=== PATIENT | male | born 1935 | race Caucasian/White ===

== ENCOUNTER 2017-06-18 15:53 | Inpatient (IN) | payer OTHER, MEDICARE ==
[~2017-06-18] VITALS: Ht 172.7 cm; Wt 80.4 kg
[2017-06-18 15:59] VITALS: BP 128/76; PULSE 63; RESP 17; O2SAT 96
[2017-06-18 17:56] LABS: AUTOMATED NEUTROPHIL # 3.5 TH/MM3 (1.8-7.7); BASOPHIL # 0.1 TH/MM3 (0-0.2); BASOPHIL % 1.5 % (0.0-2.0); EOSINOPHIL # 0.5 TH/MM3 (0-0.4); EOSINOPHIL % 6.9 % (0.0-4.0); HEMATOCRIT 38.8 % (39.0-51.0); HEMOGLOBIN 13.2 GM/DL (13.0-17.0); LYMPH % 29.2 % (9.0-44.0); LYMPHOCYTE # 1.9 TH/MM3 (1.0-4.8); MEAN CELL VOLUME 92.4 FL (80.0-100.0); MEAN CORPUSCULAR HEMOGLOBIN 31.4 PG (27.0-34.0); MEAN PLATELET VOLUME 6.5 FL (7.0-11.0); MONO % 9.5 % (0.0-8.0); MONOCYTE # 0.6 TH/MM3 (0-0.9); NEUT % 52.9 % (16.0-70.0); PLATELET COUNT 179 TH/MM3 (150-450); RED CELL DISTRIBUTION WIDTH 14.1 % (11.6-17.2); WHITE BLOOD COUNT 6.6 TH/MM3 (4.0-11.0)
--- NOTE | 2017-06-18 17:58 | PD ---
HPI Chief Complaint: Psychiatric Symptoms Time Seen by Provider: 17:07 Travel History International Travel<30 days: No Contact w/Intl Traveler<30days: No Traveled to known affect area: No History of Present Illness HPI Patient is a 81-year-old male presenting to the emergency department under Jones act for psychiatric evaluation. Patient was sent from the skilled facility due to aggressive behavior and noncompliance of medications. Per the Jones act report patient has had aggressive and exit seeking behavior since admission on 03/30/17. He is tried climbing out of windows at risk to himself and constantly tries to go outdoors. His behavior has become more aggressive lately and today post 2 different nursing assistance in his attempt to go through the doors. Unfortunately he is refusing oral medication so attempts to settle behavior with medication have failed. Onset of symptoms is unknown, symptoms appear moderate to severe nature. Unknown exacerbating factors. [facility] Past Medical History Medical History: Unable to Obtain Dementia: Yes Social History Tobacco Use: No Allergies-Medications (Allergen,Severity, Reaction): Coded Allergies: Penicillins (Verified Allergy, Unknown, UNKNOWN , 06/18/17) Sulfa (Sulfonamide Antibiotics) (Verified Allergy, Unknown, UNKNOWN , ) codeine (Verified Allergy, Unknown, UNKNOWN, 06/18/17) Reported Meds & Prescriptions Reported Meds & Active Scripts Active Reported Depakote DR (Divalproex Sodium) 500 Mg Tabdr 500 Mg PO BID Tylenol (Acetaminophen) 325 Mg Tab 325 Mg PO Q6H PRN Duoneb (Ipratropium-Albuterol Neb) 0.5-2.5 Mg/3 Ml Neb 1 Nebule INH Q8HR NEB Vitamin C (Ascorbic Acid) 250 Mg Tab 500 Mg PO DAILY Hydralazine HCl 25 Mg Tablet 25 Mg PO BID [Abh Gel ] 1 Applic BID Ativan (Lorazepam) 1 Mg Tab 1 Mg PO BID PRN Zyrtec (Cetirizine HCl) 10 Mg Tablet 1 Tab-Cap PO DAILY Review of Systems ROS Limitations: Refused, Poor Historian Except as stated in HPI: all other systems reviewed are Neg Physical Exam Narrative GENERAL: Well-developed, well-nourished, alert elderly gentleman. Presenting in no acute distress. SKIN: Warm and dry. HEAD: Atraumatic. Normocephalic. EYES: Pupils equal and round. No scleral icterus. No injection or drainage. ENT: No nasal bleeding or discharge. Mucous membranes pink and moist. NECK: Trachea midline. No JVD. CARDIOVASCULAR: Regular rate and rhythm. RESPIRATORY: No accessory muscle use. Clear to auscultation. Breath sounds equal bilaterally. GASTROINTESTINAL: Abdomen soft, non-tender, nondistended. Hepatic and splenic margins not palpable. MUSCULOSKELETAL: Extremities without clubbing, cyanosis, or edema. No obvious deformities. NEUROLOGICAL: Awake and alert oriented to self only. No obvious cranial nerve deficits. Motor grossly within normal limits. Five out of 5 muscle strength in the arms and legs. Normal speech. PSYCHIATRIC: Appropriate mood and flat affect; insight and judgment impaired. Data Data Last Documented VS Vital Signs Date Time Temp Pulse Resp B/P (MAP) Pulse Ox O2 Delivery O2 Flow Rate FiO2 06/18/17 15:59 63 17 128/76 (93) 96 Orders Orders Complete Blood Count With Diff (06/18/17 16:09) Comprehensive Metabolic Panel (06/18/17 16:09) Thyroid Stimulating Hormone (06/18/17 16:09) Psych Screen (06/18/17 16:09) Drug Screen, Random Urine (06/18/17 16:09) Alcohol (Ethanol) (06/18/17 16:09) Urinalysis - C+S If Indicated (06/18/17 16:09) Cath For Specimen (06/18/17 16:09) ^ Sitter (06/18/17 16:12) Labs Laboratory Tests Test 06/18/17 17:41 White Blood Count 6.6 TH/MM3 Red Blood Count 4.20 MIL/MM3 Hemoglobin 13.2 GM/DL Hematocrit 38.8 % Mean Corpuscular Volume 92.4 FL Mean Corpuscular Hemoglobin 31.4 PG Mean Corpuscular Hemoglobin Concent 34.0 % Red Cell Distribution Width 14.1 % Platelet Count 179 TH/MM3 Mean Platelet Volume 6.5 FL Neutrophils (%) (Auto) 52.9 % Lymphocytes (%) (Auto) 29.2 % Monocytes (%) (Auto) 9.5 % Eosinophils (%) (Auto) 6.9 % Basophils (%) (Auto) 1.5 % Neutrophils # (Auto) 3.5 TH/MM3 Lymphocytes # (Auto) 1.9 TH/MM3 Monocytes # (Auto) 0.6 TH/MM3 Eosinophils # (Auto) 0.5 TH/MM3 Basophils # (Auto) 0.1 TH/MM3 CBC Comment DIFF FINAL Differential Comment Blood Urea Nitrogen 24 MG/DL Creatinine 1.36 MG/DL Random Glucose 88 MG/DL Total Protein 8.1 GM/DL Albumin 3.5 GM/DL Calcium Level 8.5 MG/DL Alkaline Phosphatase 60 U/L Aspartate Amino Transf (AST/SGOT) 15 U/L Alanine Aminotransferase (ALT/SGPT) 17 U/L Total Bilirubin 0.4 MG/DL Sodium Level 142 MEQ/L Potassium Level 4.5 MEQ/L Chloride Level 106 MEQ/L Carbon Dioxide Level 29.3 MEQ/L Anion Gap 7 MEQ/L Estimat Glomerular Filtration Rate 51 ML/MIN Thyroid Stimulating Hormone 3rd Gen 2.430 uIU/ML Ethyl Alcohol Level LESS THAN 3 MG/DL MDM Medical Decision Making Medical Screen Exam Complete: Yes Emergency Medical Condition: Yes Interpretation(s) Vital Signs Date Time Temp Pulse Resp B/P (MAP) Pulse Ox O2 Delivery O2 Flow Rate FiO2 06/18/17 15:59 63 17 128/76 (93 96 Differential Diagnosis Behavior disturbance versus psychosis versus metabolic abnormality versus UTI versus other Narrative Course Patient is a 81-year-old male presenting from a assisted under a Jones act for psychiatric evaluation secondary to aggressive behavior and noncompliance with medications. Patient's vital signs are stable, labs ordered and pending. Mental health screening discussed with the patient. Psychiatric screen ordered. is at bedside. Patient was transferred to [facility] because he is a flight risk. Labs reviewed, no acute findings identified. Patient is medically cleared for psychiatric evaluation. Diagnosis Primary Impression: Medical clearance for psychiatric admission Condition: Stable Jen Escobar [facility] Jun 18, 2017 17:58
[2017-06-18] MEDS ORDERED: CETI10CA3 (18:05)
[2017-06-18] MEDS ORDERED: CETI-1 PO (18:05)
[2017-06-18] MEDS ORDERED: TYLE325T PO (18:13)
[2017-06-18] MEDS ORDERED: IPRASOL INH (18:13)
[2017-06-18] MEDS ORDERED: VITA250T3 PO (18:13)
[2017-06-18] MEDS ORDERED: HYDR-3799 PO (18:13)
[2017-06-18] MEDS ORDERED: LORA-474 PO (18:13)
[2017-06-18] MEDS ORDERED: DEPA500T PO (18:13)
[2017-06-18] MEDS ORDERED: ABH GEL (18:13)
[2017-06-18 18:22] LABS: ALBUMIN 3.5 GM/DL (3.4-5.0); ALT (GPT) 17 U/L (12-78); AST (GOT) 15 U/L (15-37); BICARBONATE 29.3 MEQ/L (21.0-32.0); BLOOD UREA NITROGEN 24 MG/DL (7-18); CALCIUM 8.5 MG/DL (8.5-10.1); CHLORIDE 106 MEQ/L (98-107); CREATININE 1.36 MG/DL (0.60-1.30); GLOMERULAR FILTRATION RATE 51 ML/MIN (>89); GLUCOSE,RANDOM 88 MG/DL (74-106); SODIUM (NA) 142 MEQ/L (136-145)
[2017-06-18 18:31] LABS: ALKALINE PHOSPHATASE 60 U/L (45-117); TOTAL BILIRUBIN ADULT 0.4 MG/DL (0.2-1.0); TOTAL PROTEIN 8.1 GM/DL (6.4-8.2)
[2017-06-18 19:09] VITALS: BP 132/76; PULSE 60; RESP 16; O2SAT 100
[2017-06-19 01:03] VITALS: BP 133/60; PULSE 61; RESP 18; TEMP 97.5; O2SAT 96
[2017-06-19 06:19] VITALS: BP 149/75; PULSE 63; RESP 18; TEMP 97.2; O2SAT 96
[2017-06-19 08:52] LABS: BILIRUBIN, URINE NEG (NEG); BLOOD, URINE NEG (NEG); GLUCOSE,URINE NEG (NEG); KETONE, URINE NEG (NEG); MUCUS URINE FEW /lpf (OCC); NITRITE,URINE NEG (NEG); URINE COLOR YELLOW (YELLW/STRAW); URINE LEUKOCYTE ESTERASE NEG (NEG)
[2017-06-19] MEDS ORDERED: LORazepam 1 MG TAB PO PRN (09:15)
[2017-06-19] MEDS ORDERED: LORazepam 2 MG/ML VIAL IM PRN (09:15)
[2017-06-19] MEDS ORDERED: ACETAMINOPHEN 325 MG TAB PO PRN (10:00)
[2017-06-19] MEDS ORDERED: MAGNESIUM HYDROXIDE SUSP 30 ML CUP PO PRN (10:00)
[2017-06-19] MEDS: NICOTINE 21 MG/24 HR PATCH T-DERMAL SCH (10:00)
[2017-06-19] MEDS ORDERED: ALUMINUM/MAGNESIUM/SIMETH 30 ML CUP PO PRN (10:00)
[2017-06-19 11:55] VITALS: BP 122/66; PULSE 60; RESP 16; TEMP 97.3; O2SAT 96
[2017-06-19 18:20] VITALS: BP 126/60; PULSE 56; RESP 18; TEMP 97.3; O2SAT 95
[2017-06-20 04:49] VITALS: BP 142/81; PULSE 60; RESP 17; TEMP 97.6; O2SAT 96
[2017-06-20] MEDS ORDERED: LORazepam 2 MG/ML VIAL ONE (08:17)
[2017-06-20] MEDS: NICOTINE 21 MG/24 HR PATCH T-DERMAL SCH (09:00)
[2017-06-20] MEDS: LORazepam 2 MG/ML VIAL IM PRN (09:11)
[2017-06-20] MEDS: hydrALAZINE HCL 25 MG TAB PO SCH ×2 (11:45→21:00)
[2017-06-20] MEDS: DIVALPROEX DR 500 MG TABEC PO SCH ×2 (11:45→21:00)
[2017-06-20] MEDS: ASCORBIC ACID 500 MG TAB PO SCH (12:15)
--- NOTE | 2017-06-20 13:39 | PD.CONS ---
[facility] By Primary Care Physician Unknown Diagnoses: History of Present Illness History from patient, and review of medical records, and psychiatry nurse. Patient is known to me from his prior hospitalization on February 22, 2017. At that time, I did have an extensive conversation with patient and his and confirmed his medical history. Since then, patient has been admitted one more time to psychiatry on March. He has been residing at a nursing facility. Today he was sent from the nursing facility because of severe agitation and also obtain staff members there. Patient has advanced dementia with agitation and he did present initially back in early February 09, 2017 as silver alert when he was finally found at [facility]. He kept going to airport and is thinking that he can run away to [place] and be with his family At the time of my exam, patient denies any symptoms. He however is also much more preoccupied with the thought of trying to get into the dictation room in 2500s. He is quite pleasant but it does not seem to be listening to my line of questioning. . Review of Systems ROS Limitations: Poor Historian Except as stated in HPI: all other systems reviewed are Neg Past Family Social History Allergies: Coded Allergies: Penicillins (Verified Allergy, Unknown, UNKNOWN , 06/18/17) Sulfa (Sulfonamide Antibiotics) (Verified Allergy, Unknown, UNKNOWN , ) codeine (Verified Allergy, Unknown, UNKNOWN, 06/18/17) Past Medical History cad- s/p stent - 3.5yrs ago kidney cyst BPH Alzeimers dx - diagnosed 2 yrs ago and had episodes of leaving home skin cancer - sq cell Past Surgical History skin cancer removal cardiac stents Family History brother- late 80s from metatstatic cancer Social History social drinker while young quit smoking 40yrs ago no drugs Physical Exam Vital Signs Vital Signs Date Time Temp Pulse Resp B/P (MAP) Pulse Ox O2 Delivery O2 Flow Rate FiO2 06/20/17 04:49 97.6 60 17 142/81 (101) 96 06/19/17 18:20 97.3 56 18 126/60 (82) 95 Physical Exam GENERAL: This is a well-nourished, well-developed patient, in no apparent distress. SKIN: No rashes, ecchymoses or lesions. Cool and dry. HEAD: Atraumatic. Normocephalic. No temporal or scalp tenderness. EYES:No scleral icterus. No injection or drainage. ENT: Nose without bleeding, purulent drainage or septal hematomaAirway patent. NECK: Trachea midline. No JVD CARDIOVASCULAR: Regular rate and rhythm without murmurs, gallops, or rubs. RESPIRATORY: Clear to auscultation. Breath sounds equal bilaterally. No wheezes , rales, or rhonchi. GASTROINTESTINAL: Abdomen soft, non-tender, nondistended.s. No guarding. MUSCULOSKELETAL: Extremities without clubbing, cyanosis, or edema. . No calf tenderness NEUROLOGICAL: Awake and alert.. Motor and sensory grossly within normal limits. Normal speech. Ambulating in psychiatry unit hallways. Result Diagram: 06/18/[id number]/[id number]/[id number] Assessment and Plan Assessment and Plan Impression: Dementia with agitation. Management per psychiatry. cad- s/p stent - 3.5yrs ago kidney cyst BPH Alzeimers dx - diagnosed 2 yrs ago and had episodes of leaving home skin cancer - sq cell Plan: Patient is admitted under inpatient psychiatry unit. Management per psychiatry team for his dementia with agitation and wandering. As to his medical issues, his prior history and medical records have been reviewed. His home medications have been resumed by the primary team. This was also reviewed. There is no other acute issues going on. Patient is however somewhat of a poor historian. If he does have any medical complaints, please reconsult. At this point, I will sign off on the case. DVT prophylaxis with ambulation. Discussed Condition With patient, nursing staff Garrett Rosen MD Jun 20, 2017 13:39
--- NOTE | 2017-06-20 14:10 | PD.PSY.CON ---
Provisional Diagnosis Admission Date Jun 19, 2017 at 09:05 [place]. Dementia History of Present Illness Service Psychiatry Consult Requested By Psychiatry Reason for Consult Second Primary Care Physician Unknown HPI Patient is a 81 y/o [place] man, , domiciled in an assisted living facility, with past psychiatric history of dementia, one prior psychiatric admission, no prior suicide attempts or self injurious behavior, past medical history of CAD and NV who was brought in under Jones Act due to aggressive behavior with others at the facility with reports that patient tried climbing out of windows at risk to himself and constantly tries to go outdoors in the context of refusing medications which patient was admitted to the inpatient psychiatry unit for further evaluation and management. Patient was found attempting to exit the unit, requiring ETO and moved to higher acuity unit due to behavioral dyscontrol. Patient found to be alert and oriented to person only , noted to be exit seeking and requiring redirection. On my evaluation the patient is oppositional, Refused to talk. Review of Systems Except as stated in HPI: all other systems reviewed are Neg Past Family Social History Coded Allergies: Penicillins (Verified Allergy, Unknown, UNKNOWN , 06/18/17) Sulfa (Sulfonamide Antibiotics) (Verified Allergy, Unknown, UNKNOWN , ) codeine (Verified Allergy, Unknown, UNKNOWN, 06/18/17) Reported Medications Divalproex DR (Depakote ) 500 Mg Tabdr, 500 MG PO BID for Control Seizures, # 60 TAB 0 Refills 06/18/17 Acetaminophen (Tylenol) 325 Mg Tab, 325 MG PO Q6H Y for PAIN 1 TO 10 AND/OR AGITATION, TAB 0 Refills 06/18/17 Ipratropium-Albuterol Neb (Duoneb) 0.5-2.5 Mg/3 Ml Neb, 1 NEBULE INH Q8HR NEB for Breathing Treatment, #90 NEBULE 0 Refills 06/18/17 Ascorbic Acid (Vitamin C) 250 Mg Tab, 500 MG PO DAILY for Nutritional Supplement , TAB 0 Refills 06/18/17 Hydralazine HCl (Hydralazine HCl) 25 Mg Tablet, 25 MG PO BID for Blood Pressure Management, #60 TAB 0 Refills 06/18/17 [Abh Gel ] No Conflict Check, 1 APPLIC BID 06/18/17 Lorazepam (Ativan) 1 Mg Tab, 1 MG PO BID Y for ANXIETY AND/OR AGITATION, TAB 0 Refills 06/18/17 Cetirizine HCl (Zyrtec) 10 Mg Tablet, 1 TAB-CAP PO DAILY 06/18/17 Discontinued Reported Medications Cetirizine HCl (Zyrtec) 10 Mg Capsule 06/18/17 Current Medications Medications (Trade) Dose Ordered Sig/Dipak Route Start Time Stop Time Status Last Admin (Ativan) 0.5 mg Q12H PRN PO 06/19/17 10:00 Future Hold (Ativan Inj) 0.5 mg Q12H PRN IM 06/19/17 10:00 Future Hold 06/20/17 09:11 (Tylenol) 650 mg Q4H PRN PO 06/19/17 10:00 (Milk Of Magnesia Liq) 30 ml DAILY PRN PO 06/19/17 10:00 (Mag-Al Plus Susp Liq) 30 ml Q6H PRN PO 06/19/17 10:00 (Habitrol 21 Mg Patch.24 Hr) 1 patch DAILY T-DERMAL 06/19/17 10:00 Miscellaneous Information 1 DAILY T-DERMAL 06/20/17 10:00 (ZyrTEC) 10 mg DAILY PO 06/21/17 09:00 (Depakote Dr) 500 mg BID PO 06/20/17 11:45 06/20/17 11:45 (Apresoline) 25 mg BID PO 06/20/17 11:45 06/20/17 11:45 (Vitamin C) 500 mg DAILY PO 06/20/17 12:15 06/20/17 12:15 Physical Exam Vital Signs Vital Signs Date Time Temp Pulse Resp B/P (MAP) Pulse Ox O2 Delivery O2 Flow Rate FiO2 06/20/17 04:49 97.6 60 17 142/81 (101) 96 06/19/17 06:19 Room Air I/O 06/20/17 06/20/17 06/21/17 08:00 16:00 00:00 Intake Total 120 ml 240 ml Balance 120 ml 240 ml Assessment & Plan Problem List: (1) Alzheimer's dementia with behavioral disturbance ICD Codes: G30.9 - Alzheimer's disease, unspecified; F02.81 - Dementia in other diseases classified elsewhere with behavioral disturbance Assessment & Plan: I have seen and examined this patient, review documentation , discussed with Dr. Jim, I agree and concur with his plan Assessment & Plan Estimated LOS: Neftali Crain MD Jun 20, 2017 14:10
[2017-06-20] MEDS ORDERED: HALOPERIDOL LACTATE 5 MG/ML AMP ONE (14:21)
[2017-06-20] MEDS ORDERED: diphenhydrAMINE HCL 50 MG/ML VIAL ONE (14:21)
[2017-06-20] MEDS ORDERED: diphenhydrAMINE HCL 50 MG/ML VIAL IM ONE (15:00)
[2017-06-20] MEDS ORDERED: HALOPERIDOL LACTATE 5 MG/ML AMP IM ONE (15:00)
[2017-06-20 18:22] VITALS: BP 122/60; PULSE 62; RESP 18; TEMP 97.3; O2SAT 97
[2017-06-21 06:08] VITALS: BP 117/62; PULSE 69; RESP 18; TEMP 96.6; O2SAT 95
[2017-06-21] MEDS: REMOVE OLD PATCH T-DERMAL SCH (09:00)
[2017-06-21] MEDS: NICOTINE 21 MG/24 HR PATCH T-DERMAL SCH (09:00)
[2017-06-21] MEDS: CETIRIZINE HCL 10 MG TAB PO SCH (09:58)
[2017-06-21] MEDS: hydrALAZINE HCL 25 MG TAB PO SCH ×2 (09:58→20:27)
[2017-06-21] MEDS: DIVALPROEX DR 500 MG TABEC PO SCH ×2 (09:58→20:27)
[2017-06-21] MEDS: ASCORBIC ACID 500 MG TAB PO SCH (09:58)
--- NOTE | 2017-06-21 16:43 | HHI.HP ---
Provisional Diagnosis Admission Date Jun 19, 2017 at 09:05 [place]. Dementia with behavioral disturbances Certification of Person's Competence To Provide Express and Informed Consent I have personally examined Yajaira Barnes , a person being served at [facility] on, Jun 21, 2017 16:42. Express and informed consent means consent voluntarily given in writing, by a competent person, after sufficient explanation and disclosure of the subject matter involved to enable the person to make a knowing and willful decision without any element of force, fraud, deceit, duress, or other form of constraint or coercion. This person is 18 years of age or older, is not now known to be incompetent to consent to treatment with a guardian advocate, and does not have a health care surrogate or proxy currently making medical treatment decisions. I have found this person to be one of the following: [] Competent to provide express and informed consent, as defined above, for voluntary admission to this facility and is competent to provide express and informed consent for treatment. He/she has the consistent capacity to make well reasoned, willful, and knowing decisions concerning his or her medical or mental health treatment. The person fully and consistently understands the purpose of the admission for examination/placement and is fully capable of personally exercising all rights assured under [place]xxx] Incompetent to provide express and informed consent to voluntary admission , and this is incompetent to provide express and informed consent to treatment. The person must be transferred to involuntary status and a petition for a guardian advocate filed with the Circuit Court. [] Refusing to provide express and informed consent to voluntary admission but is competent to provide express and informed consent for treatment. The person must be discharged or transferred to involuntary status. Form shall be completed within 24 hours of a person's arrival at the receiving facility and filed in the clinical record of each person: 1. Admitted on a voluntary basis 2. Permitted to provide express and informed consent to his/her own treatment 3. Allowed to transfer from involuntary to voluntary status 4. Prior to permitting a person to consent to his or her own treatment after having been previously found incompetent to consent to treatment. History of Present Illness Capacity: Lacks Capacity HPI LATE ENTRY FOR 06/20/17 Patient is a 81 y/o [place] man, , domiciled in an assisted living facility, with past psychiatric history of dementia, one prior psychiatric admission, no prior suicide attempts or self injurious behavior, past medical history of CAD and AL who was brought in under Jones Act due to aggressive behavior with others at the facility with reports that patient tried climbing out of windows at risk to himself and constantly tries to go outdoors in the context of refusing medications which patient was admitted to the inpatient psychiatry unit for further evaluation and management. Patient was found attempting to exit the unit, requiring ETO and moved to higher acuity unit due to behavioral dyscontrol. Patient found to be alert and oriented to person only , noted to be exit seeking and requiring redirection. Family history: denies Past psychiatric history: dementia, prior admission (last in [place]), no prior SA Substance use history: denies Past medical history: CAD, AL Allergies: sulfas, codeine, penicillin G Social history: , domiciled in assisted living facility, unemployed on SSI Review of Systems Except as stated in HPI: all other systems reviewed are Neg Past Psych History Violence risk - others (6 mos) elevated due to aggressive behavior Violence risk - self (6 mos) low Substance Abuse History Drugs/Alcohol past 12 months denies Past Family Social History Coded Allergies: Penicillins (Verified Allergy, Unknown, UNKNOWN , 06/18/17) Sulfa (Sulfonamide Antibiotics) (Verified Allergy, Unknown, UNKNOWN , ) codeine (Verified Allergy, Unknown, UNKNOWN, 06/18/17) Reported Medications Divalproex (Depakote ) 500 Mg Tabdr, 500 MG PO BID for Control Seizures, # 60 TAB 0 Refills 06/18/17 Acetaminophen (Tylenol) 325 Mg Tab, 325 MG PO Q6H Y for PAIN 1 TO 10 AND/OR AGITATION, TAB 0 Refills 06/18/17 Ipratropium-Albuterol Neb (Duoneb) 0.5-2.5 Mg/3 Ml Neb, 1 NEBULE INH Q8HR NEB for Breathing Treatment, #90 NEBULE 0 Refills 06/18/17 Ascorbic Acid (Vitamin C) 250 Mg Tab, 500 MG PO DAILY for Nutritional Supplement , TAB 0 Refills 06/18/17 Hydralazine HCl (Hydralazine HCl) 25 Mg Tablet, 25 MG PO BID for Blood Pressure Management, #60 TAB 0 Refills 06/18/17 [Abh Gel ] No Conflict Check, 1 APPLIC BID 06/18/17 Lorazepam (Ativan) 1 Mg Tab, 1 MG PO BID Y for ANXIETY AND/OR AGITATION, TAB 0 Refills 06/18/17 Cetirizine HCl (Zyrtec) 10 Mg Tablet, 1 TAB-CAP PO DAILY 06/18/17 Discontinued Reported Medications Cetirizine HCl (Zyrtec) 10 Mg Capsule 06/18/17 Current Medications Medications (Trade) Dose Ordered Sig/Dipak Route Start Time Stop Time Status Last Admin (Ativan) 0.5 mg Q12H PRN PO 06/19/17 10:00 Future hold (Ativan Inj) 0.5 mg Q12H PRN IM 06/19/17 10:00 Future hold 06/20/17 09:11 (Tylenol) 650 mg Q4H PRN PO 06/19/17 10:00 (Milk Of Magnesia Liq) 30 ml DAILY PRN PO 06/19/17 10:00 (Mag-Al Plus Susp Liq) 30 ml Q6H PRN PO 06/19/17 10:00 (Habitrol 21 Mg Patch.24 Hr) 1 patch DAILY T-DERMAL 06/19/17 10:00 Miscellaneous Information 1 DAILY T-DERMAL 06/20/17 10:00 (ZyrTEC) 10 mg DAILY PO 06/21/17 09:00 06/21/17 09:58 (Depakote Dr) 500 mg BID PO 06/20/17 11:45 06/21/17 09:58 (Apresoline) 25 mg BID PO 06/20/17 11:45 06/21/17 09:58 (Vitamin C) 500 mg DAILY PO 06/20/17 12:15 06/21/17 09:58 Social History , domiciled in assisted living facility, unemployed on SSI Patient's Strengths (min. 2) verbal and communicative Physical Exam Patient found to be in no acute distress, no noted gross motor abnormalities, no tremors of EPS, no noted psychomotor agitation of retardation. Vital Signs Vital Signs Date Time Temp Pulse Resp B/P (MAP) Pulse Ox O2 Delivery O2 Flow Rate FiO2 06/21/17 06:08 96.6 69 18 117/62 (80) 95 06/19/17 06:19 Room Air Mental Status Examination Appearance: Disheveled Consciousness: Alert Orientation: Person Motor Activity: Normal gait Speech: Unremarkable Language: Adequate Fund of Knowledge: Inadequate Attention and Concentration: Easily Distracted Memory: Impaired Mood: Irritable Affect: Irritable Thought Process & Associations: Goal directed, Other (concrete) Thought Content: Preoccupations (with exiting the unit) Hallucination Type: None Delusion Type: None Suicidal Ideation: No Suicidal Plan: No Suicidal Intention: No Homicidal Ideation: No Homicidal Plan: No Homicidal Intention: No Insight: Poor Judgment: Poor Assessment & Plan Problem List: (1) Alzheimer's dementia with behavioral disturbance ICD Codes: G30.9 - Alzheimer's disease, unspecified; F02.81 - Dementia in other diseases classified elsewhere with behavioral disturbance Assessment & Plan Estimated LOS: 5-7 days. Patient is a 81 y/o [place] man who carries a diagnosis of dementia, prior psychiatric admission, no prior SA who was brought in under BA due to aggressive behavior at the facility as well as attempting to exit the facility in the context of non-adherence to treatment which patient was admitted for further evaluation and management. Patient to resume Depakote 500mg PO BID for mood stabilization, continue to monitor mood and behavior. Social work intervention for psychosocial assessment. Discharge planning in progress. Discharge Planning To be determined Jaya Jim MD Jun 21, 2017 16:43
--- NOTE | 2017-06-21 16:47 | HHI.PYPN ---
Subjective Remarks Patient seen for follow up; chart reviewed. Discussion with nursing staff reported that the patient had to be moved to a higher acuity unit as patient was disruptive and attempting to exit the unit. Patient was found near the exit door, noted to be confused, perseverative on having someone open the door to leave. He is redirectible for interview and states feeling "good", denies any physical complaints, denies SI, HI, AVH or delusions. Review of Systems Except as stated in HPI: all other systems reviewed are Neg Mental Status Examination Appearance: Disheveled Consciousness: Alert Orientation: Person Motor Activity: Normal gait Speech: Unremarkable Language: Adequate Fund of Knowledge: Inadequate Attention and Concentration: Inadequate Memory: Impaired Mood: Irritable Affect: Irritable Thought Process & Associations: Other (concrete) Thought Content: Preoccupations (perseverative on discharge) Hallucination Type: None Delusion Type: None Suicidal Ideation: No Suicidal Plan: No Suicidal Intention: No Homicidal Ideation: No Homicidal Plan: No Homicidal Intention: No Insight: Poor Judgment: Poor Results Vitals/IOs Vital Signs Date Time Temp Pulse Resp B/P (MAP) Pulse Ox O2 Delivery O2 Flow Rate FiO2 06/21/17 06:08 96.6 69 18 117/62 (80) 95 06/19/17 06:19 Room Air Assessment & Plan Problem List: (1) Alzheimer's dementia with behavioral disturbance ICD Codes: G30.9 - Alzheimer's disease, unspecified; F02.81 - Dementia in other diseases classified elsewhere with behavioral disturbance Assessment & Plan Patient at this time continues with confusion, continues to exit seek requiring redirection. Continue current treatment, continue to monitor mood and behavior. Discharge planning in progress. Justification for Cont. Inpt. At risk for further decompensation at lower level of care. Jaya Jim MD Jun 21, 2017 16:47
[2017-06-21 17:57] VITALS: BP 94/30; PULSE 66; RESP 18; TEMP 97.2; O2SAT 98
[2017-06-22 06:16] VITALS: BP 100/64; PULSE 69; RESP 16; TEMP 97; O2SAT 89
[2017-06-22] MEDS: DIVALPROEX DR 500 MG TABEC PO SCH ×3 (08:49→20:28)
[2017-06-22] MEDS: NICOTINE 21 MG/24 HR PATCH T-DERMAL SCH (08:50)
[2017-06-22] MEDS: hydrALAZINE HCL 25 MG TAB PO SCH ×3 (08:50→20:28)
[2017-06-22] MEDS: CETIRIZINE HCL 10 MG TAB PO SCH ×2 (08:50→09:00)
[2017-06-22] MEDS: ASCORBIC ACID 500 MG TAB PO SCH ×2 (08:50→09:00)
[2017-06-22] MEDS: REMOVE OLD PATCH T-DERMAL SCH (09:00)
[2017-06-22 09:11] LABS: BICARBONATE 27.9 MEQ/L (21.0-32.0); BLOOD UREA NITROGEN 26 MG/DL (7-18); CALCIUM 9.2 MG/DL (8.5-10.1); CHLORIDE 105 MEQ/L (98-107); CHOLESTEROL 137 MG/DL (120-200); CREATININE 1.36 MG/DL (0.60-1.30); GLOMERULAR FILTRATION RATE 51 ML/MIN (>89); GLUCOSE,RANDOM 90 MG/DL (74-106); SODIUM (NA) 139 MEQ/L (136-145)
[2017-06-22 09:14] LABS: CHOLESTEROL/ HDL RATIO 3.58 RATIO; HDL CHOLESTEROL 38.2 MG/DL (40.0-60.0); LDL CHOLESTEROL 77 MG/DL (0-99); TRIGLYCERIDES 109 MG/DL (42-150)
--- NOTE | 2017-06-22 11:53 | HHI.PYPN ---
Subjective Remarks Patient seen for follow, chart reviewed. Discussion nursing staff reported the patient refusing medications this morning. Patient was found eating lunch noted , cooperative continued to be alert and oriented only to person, states feeling "alright" denies any perceptional disturbances, continues to be focused on exiting the unit asking if senior mortgage underwriter had keys to open the door so he can leave. Patient was encouraged to comply her medications which she agreed and when the nurse attempted to provide him his medications shortly after patient continued to refuse. Patient has not required any further ETO due to aggressive behavior since yesterday. Review of Systems Except as stated in HPI: all other systems reviewed are Neg Mental Status Examination Appearance: Disheveled, Other (There to have long finger nails) Consciousness: Alert Orientation: Person Motor Activity: Normal gait Speech: Unremarkable Language: Adequate Fund of Knowledge: Inadequate Attention and Concentration: Easily Distracted Memory: Impaired Mood: Irritable (Less so today) Affect: Other (Restricted) Thought Process & Associations: Goal directed, Other (concrete) Thought Content: Preoccupations (with exiting the unit) Hallucination Type: None Delusion Type: None Suicidal Ideation: No Suicidal Plan: No Suicidal Intention: No Homicidal Ideation: No Homicidal Plan: No Homicidal Intention: No Insight: Poor Judgment: Poor Results Labs Labs reviewed Test 06/22/17 08:01 Blood Urea Nitrogen 26 MG/DL Creatinine 1.36 MG/DL Random Glucose 90 MG/DL Calcium Level 9.2 MG/DL Sodium Level 139 MEQ/L Potassium Level 4.1 MEQ/L Chloride Level 105 MEQ/L Carbon Dioxide Level 27.9 MEQ/L Anion Gap 6 MEQ/L Estimat Glomerular Filtration Rate 51 ML/MIN Triglycerides Level 109 MG/DL Cholesterol Level 137 MG/DL LDL Cholesterol 77 MG/DL HDL Cholesterol 38.2 MG/DL Cholesterol/HDL Ratio 3.58 RATIO Vitals/IOs Vital Signs Date Time Temp Pulse Resp B/P (MAP) Pulse Ox O2 Delivery O2 Flow Rate FiO2 06/22/17 06:16 97.0 69 16 100/64 (76) 89 06/19/17 06:19 Room Air Assessment & Plan Problem List: (1) Alzheimer's dementia with behavioral disturbance ICD Codes: G30.9 - Alzheimer's disease, unspecified; F02.81 - Dementia in other diseases classified elsewhere with behavioral disturbance Assessment & Plan Patient continues with confusion secondary to neurocognitive deficits. Patient continues to be exit seeking although has not required any ETO or had any behavioral disturbances since yesterday. Upon labs patient continues to have elevated creatinine, we will continue to follow. Continue to encourage patient to comply with medications. Continue to monitor mood and behavior. Discharge planning in progress. Justification for Cont. Inpt. At risk of further decompensation at lower level of care. Discharge Planning To be determined. Jaya Jim MD Jun 22, 2017 11:53
[2017-06-22 16:30] LABS: HEMOGLOBIN A1C 4.8 % (4.3-6.0)
[2017-06-22 18:11] VITALS: BP 107/57; PULSE 71; RESP 17; TEMP 97.6
[2017-06-22 20:00] VITALS: BP 99/56; PULSE 68
[2017-06-23 05:44] VITALS: BP 142/78; PULSE 66; RESP 15; TEMP 97.6; O2SAT 94
[2017-06-23] MEDS: DIVALPROEX DR 500 MG TABEC PO SCH ×4 (08:30→19:57)
[2017-06-23] MEDS: NICOTINE 21 MG/24 HR PATCH T-DERMAL SCH (08:31)
[2017-06-23] MEDS: CETIRIZINE HCL 10 MG TAB PO SCH ×2 (08:31→09:00)
[2017-06-23] MEDS: hydrALAZINE HCL 25 MG TAB PO SCH ×4 (08:31→21:00)
[2017-06-23] MEDS: REMOVE OLD PATCH T-DERMAL SCH (08:31)
[2017-06-23] MEDS: LORazepam 0.5 MG TAB PO PRN ×3 (08:31→19:50)
[2017-06-23] MEDS: ASCORBIC ACID 500 MG TAB PO SCH ×2 (08:31→09:00)
[2017-06-23] MEDS: LORazepam 2 MG/ML VIAL IM PRN (09:02)
--- NOTE | 2017-06-23 15:31 | HHI.PYPN ---
Subjective Remarks Patient was seen and case discussed with nursing. Patient is alert and oriented 1. Continues to refuse his medications and refused to juice they were put in. He received an ETO of 0.5 mg of Ativan this morning. His grossly confused and remains perseverant on discharge. He is behaving well on the unit and has not had any aggressive episodes Mental Status Examination Appearance: Disheveled, Other (There to have long finger nails) Consciousness: Alert Orientation: Person Motor Activity: Normal gait Speech: Unremarkable Language: Adequate Fund of Knowledge: Inadequate Attention and Concentration: Easily Distracted Memory: Impaired Mood: Irritable (Less so today) Affect: Other (Restricted) Thought Process & Associations: Goal directed, Other (concrete) Thought Content: Preoccupations (with exiting the unit) Hallucination Type: None Delusion Type: None Suicidal Ideation: No Suicidal Plan: No Suicidal Intention: No Homicidal Ideation: No Homicidal Plan: No Homicidal Intention: No Insight: Poor Judgment: Poor Results Vitals/IOs Vital Signs Date Time Temp Pulse Resp B/P (MAP) Pulse Ox O2 Delivery O2 Flow Rate FiO2 06/23/17 05:44 97.6 66 15 142/78 (99) 94 Intake and Output 06/23/17 06/23/17 06/24/17 08:00 16:00 00:00 Intake Total 120 ml 240 ml Balance 120 ml 240 ml Assessment & Plan Problem List: (1) Alzheimer's dementia with behavioral disturbance ICD Codes: G30.9 - Alzheimer's disease, unspecified; F02.81 - Dementia in other diseases classified elsewhere with behavioral disturbance Assessment & Plan Continue current treatment plan Justification for Cont. Inpt. Patient would decompensate in a less restrictive setting Kenyon Rivera DO Jun 23, 2017 15:31
[2017-06-23 17:31] VITALS: BP 137/68; PULSE 65; RESP 17; TEMP 97.5; O2SAT 97
[2017-06-24 05:45] VITALS: BP 143/81; PULSE 65; RESP 16; TEMP 97.6; O2SAT 97
[2017-06-24] MEDS: DIVALPROEX DR 500 MG TABEC PO SCH ×2 (09:00→20:46)
[2017-06-24] MEDS: NICOTINE 21 MG/24 HR PATCH T-DERMAL SCH (09:00)
[2017-06-24] MEDS: CETIRIZINE HCL 10 MG TAB PO SCH (09:00)
[2017-06-24] MEDS: hydrALAZINE HCL 25 MG TAB PO SCH ×3 (09:00→21:00)
[2017-06-24] MEDS: ASCORBIC ACID 500 MG TAB PO SCH (09:00)
[2017-06-24] MEDS: REMOVE OLD PATCH T-DERMAL SCH (09:00)
[2017-06-24] MEDS: LORazepam 0.5 MG TAB PO PRN ×2 (11:50→20:46)
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
[2017-06-24 17:18] VITALS: BP 113/59; PULSE 66; RESP 18; TEMP 97.7; O2SAT 98
[2017-06-25 06:15] VITALS: BP 130/71; PULSE 63; RESP 14; O2SAT 94
[2017-06-25] MEDS: NICOTINE 21 MG/24 HR PATCH T-DERMAL SCH (08:47)
[2017-06-25] MEDS: REMOVE OLD PATCH T-DERMAL SCH (08:47)
[2017-06-25] MEDS: DIVALPROEX DR 500 MG TABEC PO SCH (09:00)
[2017-06-25] MEDS: LORazepam 2 MG/ML VIAL IM PRN (09:00)
[2017-06-25] MEDS: ASCORBIC ACID 500 MG TAB PO SCH (09:00)
[2017-06-25] MEDS: hydrALAZINE HCL 25 MG TAB PO SCH ×2 (09:00→21:00)
[2017-06-25] MEDS: CETIRIZINE HCL 10 MG TAB PO SCH (09:00)
[2017-06-25] MEDS: VALPROIC ACID SYRUP 250 MG/5 ML UDC PO SCH ×2 (12:15→21:00)
[2017-06-25] MEDS ORDERED: diphenhydrAMINE HCL 50 MG/ML VIAL IM ONE (13:45)
[2017-06-25] MEDS ORDERED: HALOPERIDOL LACTATE 5 MG/ML AMP IM ONE (13:45)
[2017-06-25 17:21] VITALS: BP 144/69; PULSE 61; RESP 16; TEMP 97.6; O2SAT 96
--- NOTE | 2017-06-25 17:24 | HHI.PYPN ---
Subjective Remarks Patient seen for follow, chart reviewed. Discussion nursing staff reported the patient continues to be exit seeking and required Ativan this morning the patient was threatening to push the door open which patient required redirection. Patient was found heavily on the hallway noted be alert and oriented only to person and somewhat perseverative on asking if ad copy writer had keys to open the door to leave. Patient also worried about his belongings (belt, watch, shoelaces). Patient reports his mood as being "good" denies any physical complaints at this time. Patient later during the day and required ETO due to becoming more irritable and aggressive with staff and attend to be redirected from trying to exit the unit. Review of Systems Except as stated in HPI: all other systems reviewed are Neg Mental Status Examination Appearance: Appropriate, Other (long finger nails) Consciousness: Alert Orientation: Person Motor Activity: Normal gait Speech: Unremarkable Language: Adequate Fund of Knowledge: Inadequate Attention and Concentration: Easily Distracted Memory: Impaired Mood: Appropriate Affect: Other (Restricted) Thought Process & Associations: Disorganized, Other (concrete) Thought Content: Preoccupations (with exiting the unit) Hallucination Type: None Delusion Type: None Suicidal Ideation: No Suicidal Plan: No Suicidal Intention: No Homicidal Ideation: No Homicidal Plan: No Homicidal Intention: No Insight: Poor Judgment: Poor Results Vitals/IOs Vital Signs Date Time Temp Pulse Resp B/P (MAP) Pulse Ox O2 Delivery O2 Flow Rate FiO2 06/25/17 06:15 63 14 130/71 (90) 94 18 17:18 97.7 Intake and Output 06/25/17 06/25/17 06/26/17 08:00 16:00 00:00 Intake Total 240 ml 960 ml 240 ml Balance 240 ml 960 ml 240 ml Assessment & Plan Problem List: (1) Alzheimer's dementia with behavioral disturbance ICD Codes: G30.9 - Alzheimer's disease, unspecified; F02.81 - Dementia in other diseases classified elsewhere with behavioral disturbance Assessment & Plan Patient at this time continues to be inconsistent with medications requiring much encouragement to take them. We will switch Depakote to Depakene liquid at 500 mg p.o. daily to improved compliance. Patient may require restudy of antipsychotic which patient in the past has been on Seroquel but will defer until patient has had adequate compliance with Depakote to see if there is improvement with just one agent. Continue to monitor mood and behavior. Discharge planning in progress. Justification for Cont. Inpt. At risk for further decompensation if at lower level of care Jaya Jim MD Jun 25, 2017 17:24
[2017-06-26 05:45] VITALS: BP 123/64; PULSE 57; TEMP 97.6; O2SAT 94
[2017-06-26] MEDS: VALPROIC ACID SYRUP 250 MG/5 ML UDC PO SCH ×2 (09:00→21:00)
[2017-06-26] MEDS: ASCORBIC ACID 500 MG TAB PO SCH (09:00)
[2017-06-26] MEDS: hydrALAZINE HCL 25 MG TAB PO SCH ×2 (09:00→19:57)
[2017-06-26] MEDS: NICOTINE 21 MG/24 HR PATCH T-DERMAL SCH (09:00)
[2017-06-26] MEDS: REMOVE OLD PATCH T-DERMAL SCH (09:00)
[2017-06-26] MEDS: CETIRIZINE HCL 10 MG TAB PO SCH (09:00)
--- NOTE | 2017-06-26 11:36 | HHI.PYPN ---
Subjective Remarks Patient seen for follow, chart reviewed. Discussion nursing staff reported patient refuse medications last evening noted to be wandering hallways without require any ETO's. Patient was found asleep was able to wake up for interview. Patient states that he is feeling "okay" borderline importance of adhering to medications which she nodded yes. Patient denies any physical complaints at this time. Review of Systems Except as stated in HPI: all other systems reviewed are Neg Mental Status Examination Appearance: Appropriate, Other (long finger nails) Consciousness: Alert Orientation: Person Motor Activity: Normal gait Speech: Unremarkable Language: Adequate Fund of Knowledge: Inadequate Attention and Concentration: Easily Distracted Memory: Impaired Mood: Appropriate Affect: Other (Restricted) Thought Process & Associations: Disorganized, Other (concrete) Thought Content: Preoccupations (with exiting the unit) Hallucination Type: None Delusion Type: None Suicidal Ideation: No Suicidal Plan: No Suicidal Intention: No Homicidal Ideation: No Homicidal Plan: No Homicidal Intention: No Insight: Poor Judgment: Poor Results Vitals/IOs Vital Signs Date Time Temp Pulse Resp B/P (MAP) Pulse Ox O2 Delivery O2 Flow Rate FiO2 06/26/17 05:45 97.6 57 123/64 (83) 94 06/25/17 17:21 16 Assessment & Plan Problem List: (1) Alzheimer's dementia with behavioral disturbance ICD Codes: G30.9 - Alzheimer's disease, unspecified; F02.81 - Dementia in other diseases classified elsewhere with behavioral disturbance Assessment & Plan Patient this time continues to be consistent with medications requiring much encouragement. Patient has not required ETO but redirectable. Continue to encourage patient to comply with medications, continue monitor mood and behavior. Discharge planning in progress. Justification for Cont. Inpt. At risk for further decompensation if at lower level of care Jaya Jim MD Jun 26, 2017 11:36
--- NOTE | 2017-06-26 13:06 | PD.TTN ---
Patient Problems 1. Discharge planning 2. Medication compliance 3. Knowledge deficit 4. Lack of coping skills Progress Toward Goals Provider Present: Dr. Jorge Jim Provider Input: 06/25/17 patient is very combative and in need for locked unit in a [facility], medications are adjusted and he has been in need for a lot of re-direction and ETO Psychiatric Counselors Present: Marely Kim LCSW Psych Therapist Input: 06/25/17 is working with [facility] and in hope for any placement, will fax referrals today for LTC care home and to [facility] that may be able to handle him, he remains demanding and trying to get out the door any chance he gets, he wants to return to work Group Spec/RT/OT/PUENTE Present: PEGGY Waggoner Group Spec/RT/OT/PUENTE Input: 06/25/17 pt is unable to tolerate groups Marely Kim LCSW Jun 26, 2017 13:06
[2017-06-26 18:00] VITALS: BP 115/68; PULSE 68; RESP 18; TEMP 98.1; O2SAT 95
[2017-06-27 05:00] VITALS: BP 126/69; PULSE 69; RESP 18; TEMP 98.2; O2SAT 98
[2017-06-27] MEDS: NICOTINE 21 MG/24 HR PATCH T-DERMAL SCH (09:00)
[2017-06-27] MEDS: REMOVE OLD PATCH T-DERMAL SCH (09:00)
[2017-06-27] MEDS: CETIRIZINE HCL 10 MG TAB PO SCH (09:24)
[2017-06-27] MEDS: ASCORBIC ACID 500 MG TAB PO SCH (09:24)
[2017-06-27] MEDS: VALPROIC ACID SYRUP 250 MG/5 ML UDC PO SCH ×2 (09:24→20:48)
[2017-06-27] MEDS: hydrALAZINE HCL 25 MG TAB PO SCH ×2 (09:24→20:48)
--- NOTE | 2017-06-27 11:24 | HHI.PYPN ---
Subjective Remarks Patient seen for follow, chart reviewed. Discussion nursing staff reported the patient has been inconsistent with medications, no behavioral issues. Patient was found sitting in day room noted to be calm, cooperative. Patient states that he has been "here for 8 years now" and states that he wants to be able to go back home in [place]. Patient was encouraged to comply with medications which he denied but continues to be perseverative on asking if insurance writer had keyed up with the daughter's that he can leave. Review of Systems Except as stated in HPI: all other systems reviewed are Neg Mental Status Examination Appearance: Appropriate, Other (long finger nails) Consciousness: Alert Orientation: Person Motor Activity: Normal gait Speech: Unremarkable Language: Adequate Fund of Knowledge: Inadequate Attention and Concentration: Easily Distracted Memory: Impaired Mood: Appropriate Affect: Other (Restricted) Thought Process & Associations: Disorganized, Other (concrete) Thought Content: Preoccupations (with exiting the unit) Hallucination Type: None Delusion Type: None Suicidal Ideation: No Suicidal Plan: No Suicidal Intention: No Homicidal Ideation: No Homicidal Plan: No Homicidal Intention: No Insight: Poor Judgment: Poor Results Vitals/IOs Vital Signs Date Time Temp Pulse Resp B/P (MAP) Pulse Ox O2 Delivery O2 Flow Rate FiO2 06/27/17 05:00 98.2 69 18 126/69 (88) 98 Intake and Output 06/27/17 06/27/17 06/28/17 08:00 16:00 00:00 Intake Total 480 ml Balance 480 ml Assessment & Plan Problem List: (1) Alzheimer's dementia with behavioral disturbance ICD Codes: G30.9 - Alzheimer's disease, unspecified; F02.81 - Dementia in other diseases classified elsewhere with behavioral disturbance Assessment & Plan Patient continues with confusion secondary to dementia, not requiring ETOs with no recent behavioral issues recently. Patient continues to refuse meds at times and requires constant encouragement to comply with treatment. Continue current treatment regimen, continue monitor mood and behavior. Discharge planning a progress. Justification for Cont. Inpt. At risk for further decompensation if at lower level of care Jaya Jim MD Jun 27, 2017 11:24
--- NOTE | 2017-06-27 14:50 | PD.TTN ---
Patient Problems 1. Discharge planning 2. Medication compliance 3. Knowledge deficit 4. Lack of coping skills Progress Toward Goals Provider Present: Dr. Jorge Jim Provider Input: 06/27/17 still adjusting meds trying to ensure patient takes medications- he is not willing to take any 06/25/17 patient is very combative and in need for locked unit in a [facility] care facility, medications are adjusted and he has been in need for a lot of re-direction and ETO Psychiatric Counselors Present: Marely Kim LCSW Psych Therapist Input: 06/27/17 patient is referred to [facility] , [address] is tomorrow and will come, he could go to [facility] or [facility] 06/25/17 is working with [facility] and in hope for any placement, will fax referrals today for LTC skilled nursing and to [facility] that may be able to handle him, he remains demanding and trying to get out the door any chance he gets, he wants to return to work Group Spec/RT/OT/PUENTE Present: Mary Everett, PEGGY Group Spec/RT/OT/PUENTE Input: 06/25/17 pt is unable to tolerate groups Marely Kim LCSW Jun 27, 2017 14:50
--- NOTE | 2017-06-27 14:53 | PD.TTN ---
Patient Problems 1. Discharge planning 2. Medication compliance 3. Knowledge deficit 4. Lack of coping skills Progress Toward Goals Provider Present: Dr. Jorge Jim Provider Input: 06/27/17 still adjusting meds trying to ensure patient takes medications- he is not willing to take any 06/25/17 patient is very combative and in need for locked unit in a retirement care facility, medications are adjusted and he has been in need for a lot of re-direction and ETO Psychiatric Counselors Present: Marely Kim LCSW Psych Therapist Input: 06/27/17 patient is referred to [facility] , [address] is tomorrow and will come, he could go to [facility] or [facility] 06/25/17 is working with [facility] and in hope for any placement, will fax referrals today for LTC usp and to [facility] that may be able to handle him, he remains demanding and trying to get out the door any chance he gets, he wants to return to work Group Spec/RT/OT/PUENTE Present: Mary Everett, PEGGY Group Spec/RT/OT/PUENTE Input: 06/27/17 pt is unable to tolerate groups 06/25/17 pt is unable to tolerate groups Marely Kim LCSW Jun 27, 2017 14:53
[2017-06-27] MEDS: LORazepam 2 MG/ML VIAL IM PRN (15:44)
[2017-06-28 05:17] VITALS: BP 112/66; PULSE 64; RESP 18; TEMP 98.1
[2017-06-28] MEDS: CETIRIZINE HCL 10 MG TAB PO SCH (09:00)
[2017-06-28] MEDS: NICOTINE 21 MG/24 HR PATCH T-DERMAL SCH (09:00)
[2017-06-28] MEDS: VALPROIC ACID SYRUP 250 MG/5 ML UDC PO SCH ×2 (09:00→20:50)
[2017-06-28] MEDS: ASCORBIC ACID 500 MG TAB PO SCH (09:00)
[2017-06-28] MEDS: hydrALAZINE HCL 25 MG TAB PO SCH ×2 (09:00→20:49)
[2017-06-28] MEDS: REMOVE OLD PATCH T-DERMAL SCH (09:00)
--- NOTE | 2017-06-28 13:52 | HHI.PYPN ---
Subjective Remarks Patient seen for follow, chart reviewed. Discussion nursing staff reported the patient had refused medications this morning and despite patient's visiting and encouraging patient continued to refuse. Nursing staff will continue to encourage patient to maintain compliance with medications. Patient was presented to mental health court today where mental health court geotechnical operating engineer had issued a continuance to allow treatment team further time for stabilization as well as appropriate placement as patient cannot return home due to the degree of neurocognitive deficits secondary to dementia and likely will require placement in a correction facility. Patient continues to be exit seeking but is redirectable not requiring ETO's recently. Review of Systems Except as stated in HPI: all other systems reviewed are Neg Mental Status Examination Appearance: Appropriate, Other (long finger nails) Consciousness: Alert Orientation: Person Motor Activity: Normal gait Speech: Unremarkable Language: Adequate Fund of Knowledge: Inadequate Attention and Concentration: Easily Distracted Memory: Impaired Mood: Appropriate Affect: Other (Restricted) Thought Process & Associations: Disorganized, Other (concrete) Thought Content: Preoccupations (with exiting the unit) Hallucination Type: None Delusion Type: None Suicidal Ideation: No Suicidal Plan: No Suicidal Intention: No Homicidal Ideation: No Homicidal Plan: No Homicidal Intention: No Insight: Poor Judgment: Poor Results Vitals/IOs Vital Signs Date Time Temp Pulse Resp B/P (MAP) Pulse Ox O2 Delivery O2 Flow Rate FiO2 06/28/17 05:17 98.1 64 18 112/66 (81) 06/27/17 05:00 98 Assessment & Plan Problem List: (1) Alzheimer's dementia with behavioral disturbance ICD Codes: G30.9 - Alzheimer's disease, unspecified; F02.81 - Dementia in other diseases classified elsewhere with behavioral disturbance Assessment & Plan Patient at this time continues to be confused and disoriented secondary to dementia. Patient continues to be focused on exiting the unit but is redirectable and has not had any aggressive behavior recently. Patient has been inconsistent with medications and continues to requires encouragement for compliance. Continue to monitor mood and behavior. Discharge planning in progress. Justification for Cont. Inpt. At risk of further decompensation at lower level of care. Discharge Planning To be determined Jaya Jim MD Jun 28, 2017 13:52
[2017-06-29 05:40] VITALS: BP 127/67; PULSE 66; RESP 16; TEMP 97.3
[2017-06-29] MEDS: CETIRIZINE HCL 10 MG TAB PO SCH (08:26)
[2017-06-29] MEDS: hydrALAZINE HCL 25 MG TAB PO SCH ×2 (08:26→21:31)
[2017-06-29] MEDS: NICOTINE 21 MG/24 HR PATCH T-DERMAL SCH (09:00)
[2017-06-29] MEDS: REMOVE OLD PATCH T-DERMAL SCH (09:00)
[2017-06-29] MEDS: VALPROIC ACID SYRUP 250 MG/5 ML UDC PO SCH ×2 (09:00→21:31)
--- NOTE | 2017-06-29 15:56 | HHI.PYPN ---
Subjective Remarks Patient seen for follow-up, chart reviewed. Discussion nursing staff reported the patient continues to be somewhat perseverative on having staff open the door so he can leave but has not had any aggressive behavior. Patient continues to be confused alert and oriented only to person, stating that he has been here for 8 years. Patient agrees to continue medications when encouraged but also continues to be focused on leaving the unit. Review of Systems Except as stated in HPI: all other systems reviewed are Neg Mental Status Examination Appearance: Appropriate, Other (long finger nails) Consciousness: Alert Orientation: Person Motor Activity: Normal gait Speech: Unremarkable Language: Adequate Fund of Knowledge: Inadequate Attention and Concentration: Easily Distracted Memory: Impaired Mood: Appropriate Affect: Other (Restricted) Thought Process & Associations: Disorganized, Other (concrete) Thought Content: Preoccupations (with exiting the unit) Hallucination Type: None Delusion Type: None Suicidal Ideation: No Suicidal Plan: No Suicidal Intention: No Homicidal Ideation: No Homicidal Plan: No Homicidal Intention: No Insight: Poor Judgment: Poor Results Vitals/IOs Vital Signs Date Time Temp Pulse Resp B/P (MAP) Pulse Ox O2 Delivery O2 Flow Rate FiO2 06/29/17 05:40 97.3 66 16 127/67 (87) 06/27/17 05:00 98 Assessment & Plan Problem List: (1) Alzheimer's dementia with behavioral disturbance ICD Codes: G30.9 - Alzheimer's disease, unspecified; F02.81 - Dementia in other diseases classified elsewhere with behavioral disturbance Assessment & Plan Patient has been calm, more compliant with medications with encouragement with nursing staff, more easily redirectable now, although continued to be perseverative on leaving the unit has not had any aggressive behavior recently. Continue current treatment. Continue to monitor mood and behavior. Discharge planning in progress. Justification for Cont. Inpt. At risk of further decompensation a lower level of care. Jaya Jim MD Jun 29, 2017 15:56
[2017-06-29] MEDS: LORazepam 0.5 MG TAB PO PRN (19:08)
[2017-06-30 05:57] VITALS: BP 116/63; PULSE 65; RESP 16; TEMP 97.5; O2SAT 95
[2017-06-30] MEDS: LORazepam 0.5 MG TAB PO PRN (08:53)
[2017-06-30] MEDS: ASCORBIC ACID 500 MG TAB PO SCH (08:53)
[2017-06-30] MEDS: hydrALAZINE HCL 25 MG TAB PO SCH ×2 (08:53→21:06)
[2017-06-30] MEDS: VALPROIC ACID SYRUP 250 MG/5 ML UDC PO SCH ×2 (08:53→21:06)
[2017-06-30] MEDS: NICOTINE 21 MG/24 HR PATCH T-DERMAL SCH (08:54)
[2017-06-30] MEDS: CETIRIZINE HCL 10 MG TAB PO SCH (08:54)
[2017-06-30] MEDS: REMOVE OLD PATCH T-DERMAL SCH (08:54)
--- NOTE | 2017-06-30 13:29 | HHI.PYPN ---
Subjective Remarks Patient was seen and case discussed with nursing. Patient is alert and oriented 1. He was exit seeking this morning and received Ativan. For this interview he is focused on his hamburger and Togolese fries. Mental Status Examination Appearance: Appropriate, Other (long finger nails) Consciousness: Alert Orientation: Person Motor Activity: Normal gait Speech: Unremarkable Language: Adequate Fund of Knowledge: Inadequate Attention and Concentration: Easily Distracted Memory: Impaired Mood: Appropriate Affect: Other (Restricted) Thought Process & Associations: Disorganized, Other (concrete) Thought Content: Preoccupations (with exiting the unit) Hallucination Type: None Delusion Type: None Suicidal Ideation: No Suicidal Plan: No Suicidal Intention: No Homicidal Ideation: No Homicidal Plan: No Homicidal Intention: No Insight: Poor Judgment: Poor Results Vitals/IOs Vital Signs Date Time Temp Pulse Resp B/P (MAP) Pulse Ox O2 Delivery O2 Flow Rate FiO2 06/30/17 05:57 97.5 65 16 116/63 (80) 95 Intake and Output 06/30/17 06/30/17 07/01/17 08:00 16:00 00:00 Intake Total 240 ml Balance 240 ml Assessment & Plan Problem List: (1) Alzheimer's dementia with behavioral disturbance ICD Codes: G30.9 - Alzheimer's disease, unspecified; F02.81 - Dementia in other diseases classified elsewhere with behavioral disturbance Assessment & Plan Continue current treatment plan Justification for Cont. Inpt. Patient would decompensate in a less restrictive setting Kenyon Rivera DO Jun 30, 2017 13:29
[2017-06-30 18:16] VITALS: BP 100/57; PULSE 68; RESP 17; TEMP 97.2; O2SAT 99
[2017-07-01 06:21] VITALS: BP 94/53; PULSE 72; RESP 18; TEMP 97.5; O2SAT 96
[2017-07-01 08:58] VITALS: BP 122/67
[2017-07-01] MEDS: REMOVE OLD PATCH T-DERMAL SCH (09:00)
[2017-07-01] MEDS: CETIRIZINE HCL 10 MG TAB PO SCH ×2 (09:00→09:12)
[2017-07-01] MEDS: hydrALAZINE HCL 25 MG TAB PO SCH ×3 (09:00→20:33)
[2017-07-01] MEDS: ASCORBIC ACID 500 MG TAB PO SCH ×2 (09:00→09:11)
[2017-07-01] MEDS: VALPROIC ACID SYRUP 250 MG/5 ML UDC PO SCH ×3 (09:00→20:07)
[2017-07-01] MEDS: NICOTINE 21 MG/24 HR PATCH T-DERMAL SCH (09:00)
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
[2017-07-02 06:22] VITALS: BP 96/57; PULSE 69; RESP 18; TEMP 98.2; O2SAT 98
[2017-07-02] MEDS: ASCORBIC ACID 500 MG TAB PO SCH (09:00)
[2017-07-02] MEDS: CETIRIZINE HCL 10 MG TAB PO SCH (09:00)
[2017-07-02] MEDS: REMOVE OLD PATCH T-DERMAL SCH (09:00)
[2017-07-02] MEDS: hydrALAZINE HCL 25 MG TAB PO SCH ×2 (09:00→20:29)
[2017-07-02] MEDS: VALPROIC ACID SYRUP 250 MG/5 ML UDC PO SCH ×2 (09:00→21:00)
[2017-07-02] MEDS: NICOTINE 21 MG/24 HR PATCH T-DERMAL SCH (09:00)
[2017-07-02] MEDS: LORazepam 0.5 MG TAB PO PRN (10:05)
--- NOTE | 2017-07-02 17:31 | HHI.PYPN ---
Subjective Remarks Patient seen for follow up, chart reviewed. Discussion nursing staff reported the patient has a compliant medications continue to be exit seeking but not requiring any ETO's with no behavioral disturbances recently. Patient was found in blade on the unit noted B, cooperative. Patient states that he is feeling "okay" agreeable to continue his medications, alert and oriented only to person. Patient continues to mention to pattern chart writer if pattern chart writer had his belongings as well as a fernando to open the door. Patient denies any physical complaints at this time. Review of Systems Except as stated in HPI: all other systems reviewed are Neg Mental Status Examination Appearance: Appropriate, Other (long finger nails) Consciousness: Alert Orientation: Person Motor Activity: Normal gait Speech: Unremarkable Language: Adequate Fund of Knowledge: Inadequate Attention and Concentration: Easily Distracted Memory: Impaired Mood: Appropriate Affect: Other (Restricted) Thought Process & Associations: Disorganized, Other (concrete) Thought Content: Preoccupations (with exiting the unit) Hallucination Type: None Delusion Type: None Suicidal Ideation: No Suicidal Plan: No Suicidal Intention: No Homicidal Ideation: No Homicidal Plan: No Homicidal Intention: No Insight: Poor Judgment: Poor Results Vitals/IOs Vital Signs Date Time Temp Pulse Resp B/P (MAP) Pulse Ox O2 Delivery O2 Flow Rate FiO2 07/02/17 06:22 98.2 69 18 96/57 (70) 98 Intake and Output 07/02/17 07/02/17 07/02/17 07:59 15:59 23:59 Intake Total 0 ml Balance 0 ml Assessment & Plan Problem List: (1) Alzheimer's dementia with behavioral disturbance ICD Codes: G30.9 - Alzheimer's disease, unspecified; F02.81 - Dementia in other diseases classified elsewhere with behavioral disturbance Assessment & Plan Patient this time continues to be alert and oriented to person, continues to be somewhat preoccupied with exits on the unit but has not had any behavioral disturbances recently. Patient has been compliant with medications. We will order repeat BMP, as well as Depakote level for tomorrow a.m. Continue monitor with behavior. Continue current treatment. Discharge planning in progress. Justification for Cont. Inpt. At risk for further decompensation if at lower level of care Jaya Jim MD Jul 02, 2017 17:31
[2017-07-02 18:09] VITALS: BP 108/58; PULSE 80; RESP 16; TEMP 97.1; O2SAT 98
[2017-07-03 06:00] VITALS: BP 125/64; PULSE 68; RESP 18; TEMP 97.5; O2SAT 94
[2017-07-03] MEDS: ASCORBIC ACID 500 MG TAB PO SCH (08:06)
[2017-07-03] MEDS: CETIRIZINE HCL 10 MG TAB PO SCH (08:06)
[2017-07-03] MEDS: VALPROIC ACID SYRUP 250 MG/5 ML UDC PO SCH ×2 (08:06→21:19)
[2017-07-03] MEDS: hydrALAZINE HCL 25 MG TAB PO SCH ×2 (08:06→21:19)
[2017-07-03] MEDS: NICOTINE 21 MG/24 HR PATCH T-DERMAL SCH (08:06)
[2017-07-03] MEDS: LORazepam 0.5 MG TAB PO PRN (08:07)
[2017-07-03] MEDS: REMOVE OLD PATCH T-DERMAL SCH (08:07)
[2017-07-03] MEDS ORDERED: diphenhydrAMINE HCL 50 MG/ML VIAL ONE (12:11)
[2017-07-03] MEDS ORDERED: HALOPERIDOL LACTATE 5 MG/ML AMP ONE (12:11)
[2017-07-03] MEDS ORDERED: HALOPERIDOL LACTATE 5 MG/ML AMP IM ONE (12:30)
[2017-07-03] MEDS ORDERED: diphenhydrAMINE HCL 50 MG/ML VIAL IM ONE (12:30)
--- NOTE | 2017-07-03 13:47 | PD.TTN ---
Patient Problems 1. Discharge planning 2. Medication compliance 3. Knowledge deficit 4. Lack of coping skills Progress Toward Goals Provider Present: Dr. Jorge Jim Provider Input: 07/02/17 pt still not taking medications, still exit seeking 06/27/17 still adjusting meds trying to ensure patient takes medications- he is not willing to take any 06/25/17 patient is very combative and in need for locked unit in a [facility] care facility, medications are adjusted and he has been in need for a lot of re-direction and ETO Psychiatric Counselors Present: Marely Kim LCSW Psych Therapist Input: 07/02/17 is overwhelmed and helpless not knowing where to send him he was supposed to go to [place] but they denied him 06/27/17 patient is referred to [facility] , [address] is tomorrow and will come, he could go to [facility] or [place] 06/25/17 is working with [facility] and in hope for any placement, will fax referrals today for LTC longterm and to [facility] that may be able to handle him, he remains demanding and trying to get out the door any chance he gets, he wants to return to work Group Spec/RT/OT/PUENTE Present: Mary Everett, PEGGY Group Spec/RT/OT/PUENTE Input: 07/02/17 pt is unable to tolerate groups 06/27/17 pt is unable to tolerate groups 06/25/17 pt is unable to tolerate groups Marely Kim LCSW Jul 03, 2017 13:47
--- NOTE | 2017-07-03 14:26 | HHI.PYPN ---
Subjective Remarks Patient seen for follow-up, chart reviewed. Discussion nursing staff reported that the patient's labs continue to be pending were not drawn today. Patient had received ETO earlier the day at he had tried to pickle sorter a table to be able to throw it against a door to accident but was intervened and patient was unable to throw it. Patient had received Haldol 5 mg/Benadryl 50 mg. Patient was found sitting in the room noted to be very somnolent due to recent administration of Haldol and Benadryl. Patient was escorted back to his room was able lay down to sleep. Review of Systems Except as stated in HPI: all other systems reviewed are Neg Mental Status Examination Appearance: Appropriate, Other (long finger nails) Consciousness: Alert Orientation: Person Motor Activity: Normal gait Speech: Unremarkable Language: Adequate Fund of Knowledge: Inadequate Attention and Concentration: Easily Distracted Memory: Impaired Mood: Appropriate Affect: Other (Restricted) Thought Process & Associations: Disorganized, Other (concrete) Thought Content: Preoccupations (with exiting the unit) Hallucination Type: None Delusion Type: None Suicidal Ideation: No Suicidal Plan: No Suicidal Intention: No Homicidal Ideation: No Homicidal Plan: No Homicidal Intention: No Insight: Poor Judgment: Poor Results Vitals/IOs Vital Signs Date Time Temp Pulse Resp B/P (MAP) Pulse Ox O2 Delivery O2 Flow Rate FiO2 07/03/17 06:00 97.5 68 18 125/64 (84) 94 Intake and Output 07/03/17 07/03/17 07/04/17 08:00 16:00 00:00 Intake Total 240 ml Balance 240 ml Assessment & Plan Problem List: (1) Alzheimer's dementia with behavioral disturbance ICD Codes: G30.9 - Alzheimer's disease, unspecified; F02.81 - Dementia in other diseases classified elsewhere with behavioral disturbance Assessment & Plan Patient at this time continues to have moments of agitation as he had attempted earlier today to try to break the door with table was redirected and had receive ETO. Patient labs continue to be pending we will order for tomorrow morning to be able to determine whether patient is within therapeutic range. We will consider adding quetiapine as patient had done well with this medication in the past. Continue monitor mood and behavior. Continue rest of medications. Discharge planning in progress. Justification for Cont. Inpt. At risk for decompensation at lower level care. Discharge Planning To be determined. Jaya Jim MD Jul 03, 2017 14:26
[2017-07-03 18:12] VITALS: BP 122/65; PULSE 66; RESP 17; TEMP 98.7; O2SAT 99
[2017-07-04 05:52] VITALS: BP 124/62; PULSE 62; RESP 14; TEMP 98.4; O2SAT 94
[2017-07-04] MEDS: NICOTINE 21 MG/24 HR PATCH T-DERMAL SCH (09:00)
[2017-07-04] MEDS: REMOVE OLD PATCH T-DERMAL SCH (09:00)
[2017-07-04] MEDS: VALPROIC ACID SYRUP 250 MG/5 ML UDC PO SCH ×2 (09:00→22:03)
[2017-07-04] MEDS: ASCORBIC ACID 500 MG TAB PO SCH (09:21)
[2017-07-04] MEDS: hydrALAZINE HCL 25 MG TAB PO SCH ×2 (09:21→21:00)
[2017-07-04] MEDS: CETIRIZINE HCL 10 MG TAB PO SCH (09:21)
[2017-07-04 09:47] LABS: ALBUMIN 3.3 GM/DL (3.4-5.0); BICARBONATE 24.2 MEQ/L (21.0-32.0); CALCIUM 9.1 MG/DL (8.5-10.1); CREATININE 1.38 MG/DL (0.60-1.30); DIRECT BILIRUBIN ADULT 0.1 MG/DL (0.0-0.2)
[2017-07-04 09:51] LABS: INDIRECT BILIRUBIN 0.6 MG/DL (0.0-0.8); TOTAL BILIRUBIN ADULT 0.7 MG/DL (0.2-1.0); TOTAL PROTEIN 7.5 GM/DL (6.4-8.2)
--- NOTE | 2017-07-04 16:37 | HHI.PYPN ---
Subjective Remarks Patient seen for follow-up, chart reviewed. Discussion nursing staff reported the patient did attend group outside and did well has been compliant mostly with medications. Patient does refuses medications at times but has been more compliant. Patient recent valproic acid level was subtherapeutic at 30. Patient not having a recent behavioral disturbances but continues to require redirection. Patient was found in day room watching television and as he appeared entertained with the program. Patient denies any physical complaints at this time continues to be pleasantly confused. Review of Systems Except as stated in HPI: all other systems reviewed are Neg Mental Status Examination Appearance: Appropriate, Other (long finger nails) Consciousness: Alert Orientation: Person Motor Activity: Normal gait Speech: Unremarkable Language: Adequate Fund of Knowledge: Inadequate Attention and Concentration: Easily Distracted Memory: Impaired Mood: Appropriate Affect: Other (Restricted) Thought Process & Associations: Disorganized, Other (concrete) Thought Content: Preoccupations (with exiting the unit) Hallucination Type: None Delusion Type: None Suicidal Ideation: No Suicidal Plan: No Suicidal Intention: No Homicidal Ideation: No Homicidal Plan: No Homicidal Intention: No Insight: Poor Judgment: Poor Results Labs Labs reviewed Test 07/04/17 08:35 Blood Urea Nitrogen 28 MG/DL Creatinine 1.38 MG/DL Random Glucose 83 MG/DL Total Protein 7.5 GM/DL Albumin 3.3 GM/DL Calcium Level 9.1 MG/DL Alkaline Phosphatase 57 U/L Aspartate Amino Transf (AST/SGOT) 26 U/L Alanine Aminotransferase (ALT/SGPT) 24 U/L Total Bilirubin 0.7 MG/DL Direct Bilirubin 0.1 MG/DL Sodium Level 138 MEQ/L Potassium Level 4.1 MEQ/L Chloride Level 106 MEQ/L Carbon Dioxide Level 24.2 MEQ/L Anion Gap 8 MEQ/L Estimat Glomerular Filtration Rate 50 ML/MIN Indirect Bilirubin 0.6 MG/DL Valproic Acid (Depakene) Level 30 MCG/ML Vitals/IOs Vital Signs Date Time Temp Pulse Resp B/P (MAP) Pulse Ox O2 Delivery O2 Flow Rate FiO2 07/04/17 05:52 98.4 62 14 124/62 (82) 94 Intake and Output 07/04/17 07/04/17 07/05/17 08:00 16:00 00:00 Intake Total 720 ml Balance 720 ml Assessment & Plan Problem List: (1) Alzheimer's dementia with behavioral disturbance ICD Codes: G30.9 - Alzheimer's disease, unspecified; F02.81 - Dementia in other diseases classified elsewhere with behavioral disturbance Assessment & Plan Patient continues to exit seek but less intense and less frequent. Collateral from reported patient endorsing paranoia about getting a divorce. Consent for starting quetiapine 12.5mg PO BID with upward titration for mood stabilization and delusions obtained via telephone with patient's @ 05:00 pm. Continue rest of medications, continue to monitor mood and behavior. Discharge planning in progress. Justification for Cont. Inpt. At risk for further decompensation at lower level of care. Jaya Jim MD Jul 04, 2017 16:37
[2017-07-04 18:22] VITALS: BP 119/61; PULSE 67; RESP 16; TEMP 97.6; O2SAT 96
[2017-07-04] MEDS: QUEtiapine FUMARATE 25 MG TAB PO SCH (20:40)
[2017-07-05 05:23] VITALS: BP 124/67; PULSE 60; RESP 16; TEMP 97.8; O2SAT 96
[2017-07-05] MEDS: NICOTINE 21 MG/24 HR PATCH T-DERMAL SCH (09:00)
[2017-07-05] MEDS: CETIRIZINE HCL 10 MG TAB PO SCH (09:00)
[2017-07-05] MEDS: ASCORBIC ACID 500 MG TAB PO SCH (09:00)
[2017-07-05] MEDS: hydrALAZINE HCL 25 MG TAB PO SCH ×2 (09:00→19:43)
[2017-07-05] MEDS: QUEtiapine FUMARATE 25 MG TAB PO SCH ×2 (09:00→20:45)
[2017-07-05] MEDS: REMOVE OLD PATCH T-DERMAL SCH (09:00)
[2017-07-05] MEDS: VALPROIC ACID SYRUP 250 MG/5 ML UDC PO SCH ×2 (09:00→20:45)
[2017-07-05 18:30] VITALS: BP 112/57; PULSE 64; RESP 18; TEMP 97.8; O2SAT 96
[2017-07-06 06:12] VITALS: BP 121/64; PULSE 67; RESP 18; TEMP 98.3; O2SAT 96
--- NOTE | 2017-07-06 08:07 | HHI.PYPN ---
Subjective Remarks LATE ENTRY FOR 07/05/16 -patient seen for follow-up, chart reviewed. Discussion nursing staff reported the patient had been doing better, no aggressive behavior but continues to be confused. Patient was found in blade on unit noted B, cooperative. Patient was found sitting in day room watching television and was somewhat perseverative on not being satisfied with the food here in the hospital. Patient denies a physical complaints, reporting eating and drinking well with no difficulty with bowel movement. Patient reminded of the importance of adherence to his medications which he just nodded. Patient continues to be asking about being out of the unit on occasion. Review of Systems Except as stated in HPI: all other systems reviewed are Neg Mental Status Examination Appearance: Appropriate, Other (long finger nails) Consciousness: Alert Orientation: Person Motor Activity: Normal gait Speech: Unremarkable Language: Adequate Fund of Knowledge: Inadequate Attention and Concentration: Easily Distracted Memory: Impaired Mood: Appropriate Affect: Other (Restricted) Thought Process & Associations: Disorganized, Other (concrete) Thought Content: Preoccupations (with exiting the unit) Hallucination Type: None Delusion Type: None Suicidal Ideation: No Suicidal Plan: No Suicidal Intention: No Homicidal Ideation: No Homicidal Plan: No Homicidal Intention: No Insight: Poor Judgment: Poor Results Vitals/IOs Vital Signs Date Time Temp Pulse Resp B/P (MAP) Pulse Ox O2 Delivery O2 Flow Rate FiO2 07/06/17 06:12 98.3 67 18 121/64 (83) 96 Intake and Output 07/06/17 07/06/17 07/07/17 08:00 16:00 00:00 Intake Total 480 ml Balance 480 ml Assessment & Plan Problem List: (1) Alzheimer's dementia with behavioral disturbance ICD Codes: G30.9 - Alzheimer's disease, unspecified; F02.81 - Dementia in other diseases classified elsewhere with behavioral disturbance Assessment & Plan Patient this time continues to be compliant with medications with encouragement , continues to be wanting to exit the unit at times but lessening. Patient no longer with recent aggressive behavior, not requiring any ETO's recently. Patient more redirectable now. Patient to continue current treatment., Continue monitor mood and behavior. Discharge planning in progress. Justification for Cont. Inpt. At risk for further decompensation if at lower level of care Jaya Jim MD Jul 06, 2017 08:07
[2017-07-06] MEDS: NICOTINE 21 MG/24 HR PATCH T-DERMAL SCH (08:24)
[2017-07-06] MEDS: QUEtiapine FUMARATE 25 MG TAB PO SCH ×3 (08:24→21:00)
[2017-07-06] MEDS: VALPROIC ACID SYRUP 250 MG/5 ML UDC PO SCH ×3 (08:24→21:00)
[2017-07-06] MEDS: ASCORBIC ACID 500 MG TAB PO SCH (08:24)
[2017-07-06] MEDS: hydrALAZINE HCL 25 MG TAB PO SCH ×2 (08:24→20:24)
[2017-07-06] MEDS: REMOVE OLD PATCH T-DERMAL SCH (08:24)
[2017-07-06] MEDS: CETIRIZINE HCL 10 MG TAB PO SCH (08:24)
[2017-07-06] MEDS ORDERED: diphenhydrAMINE HCL 50 MG/ML VIAL ONE (13:23)
[2017-07-06] MEDS ORDERED: HALOPERIDOL LACTATE 5 MG/ML AMP ONE (13:23)
[2017-07-06 18:00] VITALS: BP 137/71; PULSE 64; RESP 16; TEMP 97.6; O2SAT 98
--- NOTE | 2017-07-06 18:16 | HHI.PYPN ---
Subjective Remarks Patient seen for follow, chart reviewed. Discussion nursing staff reported the patient at refused medications this morning and has not showered recently. Patient was found sitting hospital chair in day room noted to be superficially cooperative with limited interactions today. Patient continues to be alert and oriented only to person. Patient denies any physical complaints at this time but was encouraged to comply with his treatment when he just nods yes. Review of Systems Except as stated in HPI: all other systems reviewed are Neg Mental Status Examination Appearance: Appropriate, Other (long finger nails) Consciousness: Alert Orientation: Person Motor Activity: Normal gait Speech: Unremarkable Language: Adequate Fund of Knowledge: Inadequate Attention and Concentration: Easily Distracted Memory: Impaired Mood: Appropriate Affect: Other (Restricted) Thought Process & Associations: Disorganized, Other (concrete) Thought Content: Preoccupations (with exiting the unit) Hallucination Type: None Delusion Type: None Suicidal Ideation: No Suicidal Plan: No Suicidal Intention: No Homicidal Ideation: No Homicidal Plan: No Homicidal Intention: No Insight: Poor Judgment: Poor Results Vitals/IOs Vital Signs Date Time Temp Pulse Resp B/P (MAP) Pulse Ox O2 Delivery O2 Flow Rate FiO2 07/06/17 06:12 98.3 67 18 121/64 (83) 96 Intake and Output 07/06/17 07/06/17 07/07/17 08:00 16:00 00:00 Intake Total 480 ml 1920 ml 240 ml Balance 480 ml 1920 ml 240 ml Assessment & Plan Problem List: (1) Alzheimer's dementia with behavioral disturbance ICD Codes: G30.9 - Alzheimer's disease, unspecified; F02.81 - Dementia in other diseases classified elsewhere with behavioral disturbance Assessment & Plan Patient refusing to take medications this morning despite encouragement, continues to be noted to be preoccupied with exiting the units although redirectable. Continue to encourage patient to comply with medications. Continue current treatment regimen. Continue to monitor mood and behavior. Discharge planning in progress. Justification for Cont. Inpt. At risk for further decompensation if at lower level of care Jaya Jim MD Jul 06, 2017 18:15
[2017-07-07 06:12] VITALS: BP 117/62; PULSE 65; RESP 16; TEMP 98.6; O2SAT 95
[2017-07-07] MEDS: ASCORBIC ACID 500 MG TAB PO SCH (09:00)
[2017-07-07] MEDS: REMOVE OLD PATCH T-DERMAL SCH (09:00)
[2017-07-07] MEDS: NICOTINE 21 MG/24 HR PATCH T-DERMAL SCH (09:00)
[2017-07-07] MEDS: CETIRIZINE HCL 10 MG TAB PO SCH (09:13)
[2017-07-07] MEDS: QUEtiapine FUMARATE 25 MG TAB PO SCH (09:13)
[2017-07-07] MEDS: VALPROIC ACID SYRUP 250 MG/5 ML UDC PO SCH (09:13)
[2017-07-07] MEDS: hydrALAZINE HCL 25 MG TAB PO SCH (09:13)
--- NOTE | 2017-07-07 09:39 | HHI.PYPN ---
Subjective Remarks Chart reviewed. Patient discussed with nurse. Patient continues to be guarded and intrusive. He is refusing to take a shower or shave. States that he only take care of his hygiene in his own home. Per staff patient will only take his medications with milk. Patient is follow directions with coaching. Patient is easily distracted. Mental Status Examination Appearance: Appropriate, Other (long finger nails) Consciousness: Alert Orientation: Person Motor Activity: Normal gait Speech: Unremarkable Language: Adequate Fund of Knowledge: Inadequate Attention and Concentration: Easily Distracted Memory: Impaired Mood: Appropriate Affect: Other (Restricted) Thought Process & Associations: Disorganized, Other (concrete) Thought Content: Preoccupations (with exiting the unit) Hallucination Type: None Delusion Type: None Suicidal Ideation: No Suicidal Plan: No Suicidal Intention: No Homicidal Ideation: No Homicidal Plan: No Homicidal Intention: No Insight: Poor Judgment: Poor Results Vitals/IOs Vital Signs Date Time Temp Pulse Resp B/P (MAP) Pulse Ox O2 Delivery O2 Flow Rate FiO2 07/07/17 06:12 98.6 65 16 117/62 (80) 95 Assessment & Plan Problem List: (1) Alzheimer's dementia with behavioral disturbance ICD Codes: G30.9 - Alzheimer's disease, unspecified; F02.81 - Dementia in other diseases classified elsewhere with behavioral disturbance Assessment & Plan Will continue current treatment plan. Discharge planning in progress. Justification for Cont. Inpt. Moving patient to a lower level of care may result in his decompensation. Humaira Norton Jul 07, 2017 09:39
[2017-07-07 17:00] VITALS: BP 181/91; PULSE 65; RESP 16; TEMP 98.7; O2SAT 95
[2017-07-08 06:25] VITALS: BP 119/60; PULSE 66; RESP 16; TEMP 98; O2SAT 91
[2017-07-08] MEDS: CETIRIZINE HCL 10 MG TAB PO SCH (08:20)
[2017-07-08] MEDS: QUEtiapine FUMARATE 25 MG TAB PO SCH ×2 (08:21→20:20)
[2017-07-08] MEDS: hydrALAZINE HCL 25 MG TAB PO SCH ×2 (08:21→20:20)
[2017-07-08] MEDS: VALPROIC ACID SYRUP 250 MG/5 ML UDC PO SCH ×2 (08:26→20:20)
[2017-07-08] MEDS: NICOTINE 21 MG/24 HR PATCH T-DERMAL SCH (09:00)
[2017-07-08] MEDS: ASCORBIC ACID 500 MG TAB PO SCH (09:00)
[2017-07-08] MEDS: REMOVE OLD PATCH T-DERMAL SCH (09:00)
--- NOTE | 2017-07-08 14:30 | HHI.PYPN ---
Subjective Remarks Reviewed electronic medical record discussed case with staff. Nurse reports the patient has been compliant with medications. He has not been exit seeking today. His mood has been calm and improved. Patient was located in the milieu napping peacefully in a chair. Staff report no behaviors today. Mental Status Examination Appearance: Appropriate, Other (long finger nails) Consciousness: Alert Orientation: Person Motor Activity: Normal gait Speech: Unremarkable Language: Adequate Fund of Knowledge: Inadequate Attention and Concentration: Easily Distracted Memory: Impaired Mood: Appropriate Affect: Other (Restricted) Thought Process & Associations: Disorganized, Other (concrete) Thought Content: Preoccupations (with exiting the unit) Hallucination Type: None Delusion Type: None Suicidal Ideation: No Suicidal Plan: No Suicidal Intention: No Homicidal Ideation: No Homicidal Plan: No Homicidal Intention: No Insight: Poor Judgment: Poor Results Vitals/IOs Vital Signs Date Time Temp Pulse Resp B/P (MAP) Pulse Ox O2 Delivery O2 Flow Rate FiO2 07/08/17 06:25 98.0 66 16 119/60 ( 91 Assessment & Plan Problem List: (1) Alzheimer's dementia with behavioral disturbance ICD Codes: G30.9 - Alzheimer's disease, unspecified; F02.81 - Dementia in other diseases classified elsewhere with behavioral disturbance Assessment & Plan Estimated LOS: Continue with current treatment plan. Attending psychiatrist will reevaluate patient tomorrow. Days Justification for Cont. Inpt. Moving this patient to a lower level of care would result in a decompensation. Luz Lo Jul 08, 2017 14:30
[2017-07-08 18:23] VITALS: BP 99/60; PULSE 66; RESP 18; TEMP 97.7; O2SAT 95
[2017-07-09 05:51] VITALS: BP 120/69; PULSE 65; RESP 14; TEMP 98.3; O2SAT 95
[2017-07-09 05:53] VITALS: BP 120/69; PULSE 65; RESP 17; TEMP 98.3; O2SAT 95
[2017-07-09] MEDS: REMOVE OLD PATCH T-DERMAL SCH (08:50)
[2017-07-09] MEDS: hydrALAZINE HCL 25 MG TAB PO SCH ×2 (08:50→21:00)
[2017-07-09] MEDS: QUEtiapine FUMARATE 25 MG TAB PO SCH ×2 (08:50→21:40)
[2017-07-09] MEDS: CETIRIZINE HCL 10 MG TAB PO SCH (08:50)
[2017-07-09] MEDS: VALPROIC ACID SYRUP 250 MG/5 ML UDC PO SCH ×2 (08:50→21:42)
[2017-07-09] MEDS: ASCORBIC ACID 500 MG TAB PO SCH (08:50)
[2017-07-09] MEDS: NICOTINE 21 MG/24 HR PATCH T-DERMAL SCH (08:50)
[2017-07-09 18:40] VITALS: BP 132/72; PULSE 59; RESP 16; TEMP 97.6; O2SAT 98
--- NOTE | 2017-07-09 22:10 | HHI.PYPN ---
Subjective Remarks Patient seen for follow up; chart reviewed. Discussion nursing staff reported the patient with no behavioral disturbances, has been redirectable. Patient was found ambulating on unit noted B pleasantly confused alert and oriented only to person, not noted to be less perseverative on asking for the exit doors or to be let out. Patient denies any physical complaints at this time denying any perceptual disturbances. Review of Systems Except as stated in HPI: all other systems reviewed are Neg Mental Status Examination Appearance: Appropriate, Other (long finger nails) Consciousness: Alert Orientation: Person Motor Activity: Normal gait Speech: Unremarkable Language: Adequate Fund of Knowledge: Inadequate Attention and Concentration: Easily Distracted Memory: Impaired Mood: Appropriate Affect: Other (Restricted) Thought Process & Associations: Disorganized, Other (concrete) Thought Content: Preoccupations (with exiting the unit but less so today) Hallucination Type: None Delusion Type: None Suicidal Ideation: No Suicidal Plan: No Suicidal Intention: No Homicidal Ideation: No Homicidal Plan: No Homicidal Intention: No Insight: Poor Judgment: Poor Results Vitals/IOs Vital Signs Date Time Temp Pulse Resp B/P (MAP) Pulse Ox O2 Delivery O2 Flow Rate FiO2 07/09/17 18:40 97.6 59 16 132/72 (92) 98 Intake and Output 07/09/17 07/09/17 07/10/17 08:00 16:00 00:00 Intake Total 720 ml 240 ml Balance 720 ml 240 ml Assessment & Plan Problem List: (1) Alzheimer's dementia with behavioral disturbance ICD Codes: G30.9 - Alzheimer's disease, unspecified; F02.81 - Dementia in other diseases classified elsewhere with behavioral disturbance Assessment & Plan Patient at this time continues to be inconsistent with compliance of medication but has been taking more of his medications recently. Patient with no behavioral disturbances recently, noted to continue to have preoccupation with excellent unit but less so and more redirectable now. Continue current treatment. Continue to monitor mood and behavior. Discharge planning in progress. Justification for Cont. Inpt. At risk of further decompensation at lower level of care. Jaya Jim MD Jul 09, 2017 22:10
[2017-07-10 06:21] VITALS: BP 133/64; PULSE 65; RESP 15; TEMP 97.7; O2SAT 96
[2017-07-10] MEDS: REMOVE OLD PATCH T-DERMAL SCH (09:00)
[2017-07-10] MEDS: ASCORBIC ACID 500 MG TAB PO SCH (09:00)
[2017-07-10] MEDS: CETIRIZINE HCL 10 MG TAB PO SCH (09:00)
[2017-07-10] MEDS: NICOTINE 21 MG/24 HR PATCH T-DERMAL SCH (09:00)
[2017-07-10] MEDS: QUEtiapine FUMARATE 25 MG TAB PO SCH ×2 (09:28→21:13)
[2017-07-10] MEDS: VALPROIC ACID SYRUP 250 MG/5 ML UDC PO SCH ×2 (09:28→21:00)
[2017-07-10] MEDS: hydrALAZINE HCL 25 MG TAB PO SCH ×2 (09:29→21:00)
--- NOTE | 2017-07-10 17:28 | HHI.PYPN ---
Subjective Remarks Patient seen for follow-up, chart reviewed. Discussion nursing staff reported the patient has not been compliant with treatment recently but no behavioral disturbances. Patient was found in day room noted to be confused but pleasant during interview. Patient states feeling "okay" continues to ask rather for fernando to open the door, redirectable. Patient denies any physical complaints at this time, eating and drinking well. Review of Systems Except as stated in HPI: all other systems reviewed are Neg Mental Status Examination Appearance: Appropriate, Other (long finger nails) Consciousness: Alert Orientation: Person Motor Activity: Normal gait Speech: Unremarkable Language: Adequate Fund of Knowledge: Inadequate Attention and Concentration: Easily Distracted Memory: Impaired Mood: Appropriate Affect: Other (Restricted) Thought Process & Associations: Disorganized, Other (concrete) Thought Content: Preoccupations Hallucination Type: None Delusion Type: None Suicidal Ideation: No Suicidal Plan: No Suicidal Intention: No Homicidal Ideation: No Homicidal Plan: No Homicidal Intention: No Insight: Poor Judgment: Poor Results Vitals/IOs Vital Signs Date Time Temp Pulse Resp B/P (MAP) Pulse Ox O2 Delivery O2 Flow Rate FiO2 07/10/17 06:21 97.7 65 15 133/64 (87) 96 Intake and Output 07/10/17 07/10/17 07/11/17 08:00 16:00 00:00 Intake Total 720 ml 240 ml Balance 720 ml 240 ml Assessment & Plan Problem List: (1) Alzheimer's dementia with behavioral disturbance ICD Codes: G30.9 - Alzheimer's disease, unspecified; F02.81 - Dementia in other diseases classified elsewhere with behavioral disturbance Assessment & Plan Patient continues to B, cooperative with staff, no behavioral disturbances. Patient now more consistent with adherence to treatment. The patient continues to inquire about exiting the unit, he has been redirectable. Continue current treatment. Continue monitor with behavior. Discharge planning in progress. Justification for Cont. Inpt. At risk of further decompensation at lower level of care. Discharge Planning To be determined. Jaya Jim MD July 10, 2017 17:28
[2017-07-10 17:54] VITALS: BP 112/64; PULSE 65; RESP 16; TEMP 97.6; O2SAT 95
[2017-07-11 06:00] VITALS: BP 133/64; PULSE 57; RESP 15; TEMP 97.7; O2SAT 92
[2017-07-11] MEDS: REMOVE OLD PATCH T-DERMAL SCH (09:00)
[2017-07-11] MEDS: NICOTINE 21 MG/24 HR PATCH T-DERMAL SCH (09:00)
[2017-07-11] MEDS: CETIRIZINE HCL 10 MG TAB PO SCH (10:00)
[2017-07-11] MEDS: VALPROIC ACID SYRUP 250 MG/5 ML UDC PO SCH ×2 (10:00→20:50)
[2017-07-11] MEDS: hydrALAZINE HCL 25 MG TAB PO SCH ×2 (10:00→20:50)
[2017-07-11] MEDS: ASCORBIC ACID 500 MG TAB PO SCH (10:00)
[2017-07-11] MEDS: QUEtiapine FUMARATE 25 MG TAB PO SCH ×2 (10:00→20:50)
[2017-07-11] MEDS ORDERED: BISACODYL 10 MG SUPP RECTAL PRN (11:45)
[2017-07-11] MEDS ORDERED: SOD PHOSPHATE/SOD BIPHOSPHATE (ADULT) ENEMA 133ML RECTAL ONE (15:15)
--- NOTE | 2017-07-11 16:10 | PD.TTN ---
Patient Problems 1. Discharge planning 2. Medication compliance 3. Knowledge deficit 4. Lack of coping skills Progress Toward Goals Provider Present: Dr. 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 and possibly going there this week 07/09/17 pt in need of LTC placement, faxed referrals today to 15 facilities 07/02/17 is overwhelmed and helpless not knowing where to send him he was supposed to go to [facility] but they denied him 06/27/17 patient is referred to [facility] , [address] is tomorrow and will come, he could go to [facility] or [facility] 06/25/17 is working with [facility] [employer] and in hope for any placement, will fax referrals today for LTC retirement and to [facility] that may be able to handle him, he remains demanding and trying to get out the door any chance he gets, he wants to return to work Group Spec/RT/OT/PUENTE Present: Mary Everett, PEGGY Group Spec/RT/OT/PUENTE Input: 07/11/17 pt still not tolerating groups 07/09/17 pt is unable to tolerate groups 07/02/17 pt is unable to tolerate groups 06/27/17 pt is unable to tolerate groups 06/25/17 pt is unable to tolerate Marely Collins LCSW July 11, 2017 16:10
[2017-07-11 18:00] VITALS: BP 104/66; PULSE 85; RESP 14; TEMP 98; O2SAT 95
--- NOTE | 2017-07-11 22:06 | HHI.PYPN ---
Subjective Remarks Patient seen for follow up; chart reviewed. Discussion with nursing staff reported that the patient had been complaining of constipation and requesting treatment for the same. Patient was found in room complaining of abdominal discomfort which he initially refused MoM for constipation but had tried prune juice, suppository, fleet enema and lastly tried MoM with limited effect. Patient could not tolerate digital disimpaction. Review of Systems Except as stated in HPI: all other systems reviewed are Neg Mental Status Examination Appearance: Appropriate, Other (long finger nails) Consciousness: Alert Orientation: Person Motor Activity: Normal gait Speech: Unremarkable Language: Adequate Fund of Knowledge: Inadequate Attention and Concentration: Easily Distracted Memory: Impaired Mood: Appropriate Affect: Other (Restricted) Thought Process & Associations: Disorganized, Other (concrete) Thought Content: Appropriate Hallucination Type: None Delusion Type: None Suicidal Ideation: No Suicidal Plan: No Suicidal Intention: No Homicidal Ideation: No Homicidal Plan: No Homicidal Intention: No Insight: Poor Judgment: Poor Results Vitals/IOs Vital Signs Date Time Temp Pulse Resp B/P (MAP) Pulse Ox O2 Delivery O2 Flow Rate FiO2 07/11/17 18:00 98.0 85 14 104/66 (79) 95 Intake and Output 07/11/17 07/11/17 07/12/17 08:00 16:00 00:00 Intake Total 240 ml 240 ml Balance 240 ml 240 ml Assessment & Plan Problem List: (1) Alzheimer's dementia with behavioral disturbance ICD Codes: G30.9 - Alzheimer's disease, unspecified; F02.81 - Dementia in other diseases classified elsewhere with behavioral disturbance Assessment & Plan Patient at this time complaining of constipation and despite measures to relieve patient, continues to have difficulty. Will place hospitalist consult for recommendations. Continue current treatment, continue to monitor mood and behavior. Discharge planning in progress. Justification for Cont. Inpt. At risk for further decompensation at lower level of care. Jaya Jim MD July 11, 2017 22:06
[2017-07-12 02:15] VITALS: BP 150/102; O2SAT 92
--- NOTE | 2017-07-12 04:11 | RADRPT ---
EXAM DATE/TIME: 07/12/2017 02:51 [facility] COMPARISON: No previous studies available for comparison. INDICATIONS : Abdominal distention. MEDICAL HISTORY : None. SURGICAL HISTORY : None. ENCOUNTER: Initial ACUITY: 1 day PAIN SCORE: 0/10 LOCATION: Bilateral abdomen FINDINGS: Supine view of the abdomen was performed. The abdominal bowel gas pattern is normal. There are 2, parker bcentimeter calcific densities projecting over the right transverse process of L5. These are below th e renal shadow. Multiple phleboliths in the deep right pelvis. Surgical clips in the right upper abdo mila quadrant are characteristic of prior cholecystectomy. CONCLUSION: 1. Nonobstructed bowel gas pattern. 2. 8 mm calcific densities just above the SI joint on the right. These are outside the renal shadow. Diagnostic considerations include ureteral calculi or calcified lymph nodes. Rosalio Li MD on July 12, 2017 at 4:04 Board Certified Radiologist. This report was verified electronically.
[2017-07-12 05:23] VITALS: BP 134/76; PULSE 79; RESP 18; TEMP 97.6; O2SAT 94
[2017-07-12] MEDS: DOCUSATE SODIUM 50 MG/SENNA 8.6 MG TAB PO SCH ×2 (09:33→21:08)
[2017-07-12] MEDS: CETIRIZINE HCL 10 MG TAB PO SCH (09:33)
[2017-07-12] MEDS: QUEtiapine FUMARATE 25 MG TAB PO SCH ×2 (09:33→21:08)
[2017-07-12] MEDS: hydrALAZINE HCL 25 MG TAB PO SCH ×2 (09:33→21:00)
[2017-07-12] MEDS: ASCORBIC ACID 500 MG TAB PO SCH (09:33)
[2017-07-12] MEDS: REMOVE OLD PATCH T-DERMAL SCH (09:38)
[2017-07-12] MEDS: NICOTINE 21 MG/24 HR PATCH T-DERMAL SCH (09:38)
[2017-07-12] MEDS: VALPROIC ACID SYRUP 250 MG/5 ML UDC PO SCH ×2 (09:39→21:08)
--- NOTE | 2017-07-12 12:01 | HHI.PR ---
Subjective Remarks 81-year-old male with past medical history of Alzheimer's dementia, CAD with stenting, kidney cysts, and BPH who is currently admitted to inpatient psychiatry. Reconsulted for constipation. Spoke with nurse who reports patient did have several loose bowel movements overnight. Patient is seen and examined in his room resting comfortably in no acute distress. He reports that there is something wrong with his stomach but does not describe any further. Denies any pain. He does pass flatus while I interview him. He has helped to the toilet and noted to have some stool in pull-up. He also had episode of incontinence in bed. Objective Vitals Vital Signs Date Time Temp Pulse Resp B/P (MAP) Pulse Ox O2 Delivery O2 Flow Rate FiO2 07/12/17 05:23 97.6 79 18 134/76 (95) 94 07/12/17 02:15 150/102 (118) 92 07/11/17 18:00 98.0 85 14 104/66 (79) 95 I/O 07/11/17 07/11/17 07/11/17 07/12/17 07/12/17 07/12/17 07:00 15:00 23:00 07:00 15:00 23:00 Intake Total 480 ml 480 ml 0 ml Balance 480 ml 480 ml 0 ml Intake Oral 480 ml 480 ml 0 ml # Voids 2 1 # Bowel Movements 2 Imaging Last Impressions Abdomen X-Ray 07/12/17 0000 Signed Impressions: Service Date/Time: July 02:51 - CONCLUSION: 1. Nonobstructed bowel gas pattern. 2. 8 mm calcific densities just above the SI joint on the right. These are outside the renal shadow. Diagnostic considerations include ureteral calculi or calcified lymph nodes. Rosalio Li MD Objective Remarks GENERAL: This is a well-nourished, well-developed patient, in no apparent distress. SKIN: Cool and dry. ENT: Airway patent. NECK: Trachea midline. No JVD CARDIOVASCULAR: Regular rate and rhythm without murmurs, gallops, or rubs. RESPIRATORY: Clear to auscultation. Breath sounds equal bilaterally. No wheezes , rales, or rhonchi. GASTROINTESTINAL: Abdomen soft, non-tender, nondistended. No guarding. Normoactive bowel sounds. MUSCULOSKELETAL: Extremities without clubbing, cyanosis, or edema. . No calf tenderness NEUROLOGICAL: Awake and alert. Motor and sensory grossly within normal limits. Normal speech. A/P Assessment and Plan 81-year-old male with past medical history of Alzheimer's dementia, CAD with stenting, kidney cysts, and BPH who is currently admitted to inpatient psychiatry. Reconsulted for constipation. Constipation -Patient is status post laxatives as well as Fleet Enema. + BM overnight -KUB completed on 07/12 reviewed, nonobstructed bowel gas pattern. 8 mm calcified density just above the SI joint on the right, outside of regional shadow. Diagnostic consideration could be urethral calculi or calcified lymph nodes according to radiologist report -Patient is eating and drinking without any issues, with BM - Add daily stool softener and continue monitoring -Patient also denies any dysuria, or trouble urinating, consider CT of the abdomen to assess for possible renal calculi Urinary incontinence -Patient with an episode of urinary incontinence in bed when examined. -He has been afebrile with no urinary complaints -Check UA culture and sensitivity if indicated -We will also check a CBC and a BMP DVT prophylaxis-ambulation Discussed with patient and nurse. Bernardo Loaiza July 12, 2017 12:00
[2017-07-12 18:16] VITALS: BP 116/59; PULSE 80; RESP 18; TEMP 98.3; O2SAT 94
[2017-07-12 20:00] VITALS: BP 107/54; PULSE 97; RESP 20
--- NOTE | 2017-07-12 22:21 | HHI.PYPN ---
Subjective Remarks Patient seen for follow up; chart reviewed. Discussion with nursing staff reported patient seen by hospitalist groundwater consultant and under further workup. Patient was found lying on hospital bed complaining of continued abdominal discomfort but reports having had some bowel movement and rectal pain which may could be from previous attempt for digital disimpaction. Patient primarily focused on abdominal discomfort. Review of Systems Gastrointestinal: COMPLAINS OF: Constipation Mental Status Examination Appearance: Appropriate, Other (long finger nails) Consciousness: Alert Orientation: Person Motor Activity: Normal gait Speech: Unremarkable Language: Adequate Fund of Knowledge: Inadequate Attention and Concentration: Easily Distracted Memory: Impaired Mood: Appropriate Affect: Other (Restricted) Thought Process & Associations: Disorganized, Other (concrete) Thought Content: Preoccupations (with constipation) Hallucination Type: None Delusion Type: None Suicidal Ideation: No Suicidal Plan: No Suicidal Intention: No Homicidal Ideation: No Homicidal Plan: No Homicidal Intention: No Insight: Poor Judgment: Poor Results Vitals/IOs Vital Signs Date Time Temp Pulse Resp B/P (MAP) Pulse Ox O2 Delivery O2 Flow Rate FiO2 07/12/17 18:16 98.3 80 18 116/59 (78) 94 Intake and Output 07/12/17 07/12/17 07/13/17 08:00 16:00 00:00 Intake Total 0 ml 480 ml Balance 0 ml 480 ml Assessment & Plan Problem List: (1) Alzheimer's dementia with behavioral disturbance ICD Codes: G30.9 - Alzheimer's disease, unspecified; F02.81 - Dementia in other diseases classified elsewhere with behavioral disturbance Assessment & Plan Patient at this time continues with abdominal discomfort but has had some bowel movement. Recent KUB study shows possible ureteral calculi, will order CT of abdomen/pelvis for tomorrow; labs pending from primary medical team workup; input appreciated. Continue current treatment, continue to monitor mood and behavior. Discharge planning in progress. Justification for Cont. Inpt. At risk for further decompensation if at lower level of care. Discharge Planning To be determined Jaya Jim MD July 12, 2017 22:20
[2017-07-13 05:57] VITALS: BP 105/59; PULSE 69; RESP 16; TEMP 98.1; O2SAT 95
[2017-07-13] MEDS: REMOVE OLD PATCH T-DERMAL SCH (09:00)
[2017-07-13] MEDS: DOCUSATE SODIUM 50 MG/SENNA 8.6 MG TAB PO SCH ×3 (09:00→21:00)
[2017-07-13] MEDS: ASCORBIC ACID 500 MG TAB PO SCH ×2 (09:00→09:03)
[2017-07-13] MEDS: CETIRIZINE HCL 10 MG TAB PO SCH ×2 (09:00→09:01)
[2017-07-13] MEDS: hydrALAZINE HCL 25 MG TAB PO SCH ×2 (09:00→21:00)
[2017-07-13] MEDS: NICOTINE 21 MG/24 HR PATCH T-DERMAL SCH (09:00)
[2017-07-13] MEDS: VALPROIC ACID SYRUP 250 MG/5 ML UDC PO SCH ×2 (09:01→21:00)
[2017-07-13] MEDS: QUEtiapine FUMARATE 25 MG TAB PO SCH ×2 (09:03→21:00)
--- NOTE | 2017-07-13 09:20 | RADRPT ---
EXAM DATE/TIME: 07/13/2017 08:21 [facility] COMPARISON: No previous studies available for comparison. INDICATIONS : Pain in lower pelvis ORAL CONTRAST: No oral contrast ingested. RADIATION DOSE: 7.11 CTDIvol (mGy) MEDICAL HISTORY : Cardiovascular disease. SURGICAL HISTORY : Cholecystectomy. Inguinal hernia repair. ENCOUNTER: Initial ACUITY: 1 day PAIN SCALE: 8/10 LOCATION: Bilateral proximal TECHNIQUE: Volumetric scanning of the abdomen and pelvis was performed. Using automated exposure control and ad justment of the mA and/or kV according to patient size, radiation dose was kept as low as reasonably achievable to obtain optimal diagnostic quality images. DICOM format image data is available electro nically for review and comparison. FINDINGS: The lower lungs are clear. The liver is free of focal defects. Surgical clips gallbladder fossa. Spleen and pancreas are unremarkable Right kidney: Large 11 centimeter right renal cyst with smaller peripelvic cyst. Minimal perinephric stranding. Left kidney: Moderate peripelvic cyst without stone. There are no calcifications along the expected course of either ureter Extensive vascular calcifications are evident There is no adenopathy Cecum and colon appear unremarkable In the pelvis large amount stool is present in the rectum. There is no ascites or adenopathy Small hydrocele on the left Extensive vascular calcifications Review of bone windows reveals extensive degenerative changes in the lumbar spine. CONCLUSION: Large 11 cm right renal cyst. Large bolus of stool in the rectosigmoid without inflammatory changes in the pelvis Extensive degenerative changes in the lumbar spine Extensive vascular calcifications. Rogelio Steel MD FACR on July 13, 2017 at 9:13 Board Certified Radiologist. This report was verified electronically.
--- NOTE | 2017-07-13 13:05 | PD.CONS ---
HPI History of Present Illness This is a thin borderline frail 81 year old male who was admitted on 06/19/2017 and is currently being managed in the psychiatric unit. During initial phase the patient was laying in the running sleeping and did appear to be hard of hearing, but did arouse and answer some simple questions. Patient denies any nausea or vomiting, but chief complaint was rectal pain and some constipation. No diarrhea noted or obvious bleeding. According to the record patient had 2 bowel movements on 07/12/2017. Per the record and patient no obvious bleeding noted, unknown history for EGD or colonoscopy or colon cancer. Gastroenterology was asked to evaluate for severe constipation and large bolus of stool in the rectal sigmoid colon area without inflammation. Patient has been on stool softeners and has laxatives if needed but having only small amounts of liquid stool. Attempted manual disimpaction unsuccessful. Currently patient is a poor historian most of the medical information is been a time from the record and staff. (Yadi Friedman) PFSH Past Medical History According to the record Dementia Coronary artery disease [place] Past Surgical History Unknown (Yadi Friedman) Coded Allergies: Penicillins (Verified Allergy, Unknown, UNKNOWN , 06/18/17) Sulfa (Sulfonamide Antibiotics) (Verified Allergy, Unknown, UNKNOWN , ) codeine (Verified Allergy, Unknown, UNKNOWN, 06/18/17) Medications Administered Medications Medications (Trade) Dose Ordered Sig/Dipak Route PRN Reason Start Time Stop Time Status Last Admin Dose Admin Lorazepam (Ativan) 0.5 mg Q12H PRN PO MODERATE TO SEVERE ANXIETY 06/19/17 10:00 Future hold 07/02/17 10:05 Lorazepam (Ativan Inj) 0.5 mg Q12H PRN IM MODERATE TO SEVERE ANXIETY 06/19/17 10:00 Future hold 06/27/17 15:44 Magnesium Hydroxide (Milk Of Magnesia Liq) 30 ml DAILY PRN PO CONSTIPATION 06/19/17 10:00 07/11/17 16:00 Cetirizine HCl (ZyrTEC) 10 mg DAILY PO 06/21/17 09:00 07/12/17 09:33 Hydralazine HCl (Apresoline) 25 mg BID PO 06/20/17 11:45 07/12/17 09:33 Ascorbic Acid (Vitamin C) 500 mg DAILY PO 06/20/17 12:15 07/12/17 09:33 Valproic Acid (Depakene Liq) 500 mg BID PO 06/25/17 12:15 07/13/17 09:01 Quetiapine Fumarate (SEROquel) 12.5 mg BID PO 07/04/17 21:00 07/13/17 09:03 Bisacodyl (Dulcolax Supp) 10 mg DAILY PRN RECTAL CONSTIPATION 07/11/17 11:45 07/11/17 11:55 Senna/Docusate Sodium (Kimberly-Colace) 1 tab BID PO 07/12/17 09:00 07/12/17 21:08 (Yadi Friedman) Review of Systems Gastrointestinal: COMPLAINS OF: Constipation Rectal pain (Yadi Friedman) GI Exam Vitals I&O Vital Signs Date Time Temp Pulse Resp B/P (MAP) Pulse Ox O2 Delivery O2 Flow Rate FiO2 07/13/17 05:57 98.1 69 16 105/59 (74) 95 07/12/17 20:00 97 20 107/54 (71) 07/12/17 18:16 98.3 80 18 116/59 (78) 94 I/O 07/12/17 07/12/17 07/12/17 07/13/17 07/13/17 07/13/17 07:00 15:00 23:00 07:00 15:00 23:00 Intake Total 0 ml 480 ml 120 ml Balance 0 ml 480 ml 120 ml Intake Oral 0 ml 480 ml Oral Supplement 120 ml # Voids 1 # Bowel Movements 2 Imaging Last Impressions Abdomen/Pelvis CT 07/13/17 0000 Signed Impressions: Service Date/Time: Thursday, July 13, 2017 08:21 - CONCLUSION: Large 11 cm right renal cyst. Large bolus of stool in the rectosigmoid without inflammatory changes in the pelvis Extensive degenerative changes in the lumbar spine Extensive vascular calcifications. Rogelio Steel MD FACR Abdomen X-Ray 07/12/17 0000 Signed Impressions: Service Date/Time: July 02:51 - CONCLUSION: 1. Nonobstructed bowel gas pattern. 2. 8 mm calcific densities just above the SI joint on the right. These are outside the renal shadow. Diagnostic considerations include ureteral calculi or calcified lymph nodes. Rosalio Li MD Physical Examination HEENT: Thin general body build normocephalic; atraumatic; NECK: Neck is supple, thi CHEST: No obvious shortness of breath or wheezing , lung garcia essentially clear CARDIAC: Regular rate and rhythm ABDOMEN: Taut, nondistended, mild generalized lower tenderness left lower quadrant; no hepatosplenomegaly; bowel sounds soft EXTREMITIES: No clubbing, cyanosis, or edema. SKIN: Normal; no rash; no jaundice. GENETICS TEACHER: Hard of hearing, drowsy responded to a couple of basic questions (Yadi Friedman) Assessment and Plan Plan Constipation, according to abdominal CT done on 07/13/2017 patient has large stool bolus at the rectal sigmoid colon area without inflammatory changes 81-year-old elderly borderline frail male being managed in the psychiatric unit for his dementia. According to the record he came from an assisted living facility. Patient is psychiatric meds, constipation could be related to medications, hydration, nutrition. Current labs show no obvious bleeding. Hemoglobin 13.2, LFTs normal 2 bowel movements charted on 07/12/2017 but may have been watery liquid according to the record. Patient was checked for impaction but according to the record unable to reach any stool. Patient's chief complaint is rectal pain which could be the pressure of stool and or hemorrhoids. Unknown history of EGD or colonoscopy Plan Trial or retention fleets enema first to soften Hemorrhoid suppositories daily and as needed Lactulose daily If fleets enema ineffective may try soapsuds enema. Encourage hydration We will monitor labs but doubt any active bleeding Further recommendations to follow, if soapsuds enema ineffective may consider sigmoidoscopy Patient was seen per myself and Dr. Covarrubias, note was written on his behalf (Yadi Friedman) Physician Comments seen, examined agree with above lidocaine cream prn glycerin supp if no results with the above treatment consider felxisigmoidoscopy with disimpaction (Evon Covarrubias MD) Yadi Friedman July 13, 2017 13:05 Evon Covarrubias MD July 13, 2017 17:26
--- NOTE | 2017-07-13 13:21 | HHI.PYPN ---
Subjective Remarks Patient seen for follow-up, chart reviewed. Discussion nursing staff reported the patient has a complaining of continued pain when he urinates as well as difficulty with bowel movement although it has been reported patient has been having some. Patient was found lying in hospital bed continues report feeling pain with bowel movement stated that he needs a "Dr. to cut it out" along with pain upon urination. CT scan showed 11 cm renal cyst along with large stool in the rectosigmoid area. Review of Systems Except as stated in HPI: all other systems reviewed are Neg Mental Status Examination Appearance: Appropriate, Other (long finger nails) Consciousness: Alert Orientation: Person Motor Activity: Normal gait Speech: Unremarkable Language: Adequate Fund of Knowledge: Inadequate Attention and Concentration: Easily Distracted Memory: Impaired Mood: Other ("Not good") Affect: Other (Restricted) Thought Process & Associations: Disorganized, Other (concrete) Thought Content: Preoccupations (with constipation) Hallucination Type: None Delusion Type: None Suicidal Ideation: No Suicidal Plan: No Suicidal Intention: No Homicidal Ideation: No Homicidal Plan: No Homicidal Intention: No Insight: Poor Judgment: Poor Results Vitals/IOs Vital Signs Date Time Temp Pulse Resp B/P (MAP) Pulse Ox O2 Delivery O2 Flow Rate FiO2 07/13/17 05:57 98.1 69 16 105/59 (74) 95 Intake and Output 07/13/17 07/13/17 07/14/17 08:00 16:00 00:00 Intake Total 120 ml Balance 120 ml Assessment & Plan Problem List: (1) Alzheimer's dementia with behavioral disturbance ICD Codes: G30.9 - Alzheimer's disease, unspecified; F02.81 - Dementia in other diseases classified elsewhere with behavioral disturbance Assessment & Plan Patient this time continues to report abdominal discomfort along with difficulty with bowel movement and now reporting pain upon urination. Recent CT scan showed 11 mm right renal cyst along with large stool in the rectosigmoid area the colon. We will have hospitalist follow up and will continue recommendations as per prior medical team. Continue to monitor mood and behavior. Discharge planning in progress. Justification for Cont. Inpt. At risk of further decompensation at lower level of care. Jaya Jim MD July 13, 2017 13:21
[2017-07-13] MEDS ORDERED: HYDROCORTISONE/PRAMOXINE RECTAL FOAM 10 GM CAN RECTAL PRN (13:30)
--- NOTE | 2017-07-13 13:54 | HHI.PR ---
Subjective Remarks Follow-up for severe constipation. Patient seen and examined resting in bed. He complains of pain is his "butt". He denies any abdominal pain however abdominal pain was reported per nurse. He denies any nausea, still eating, no fevers or chills. Spoke with nurse reports patient continues to be very constipated and has been in bed for most of the day, requiring a Lotus chair to sit in the day room. Objective Vitals Vital Signs Date Time Temp Pulse Resp B/P (MAP) Pulse Ox O2 Delivery O2 Flow Rate FiO2 07/13/17 05:57 98.1 69 16 105/59 (74) 95 07/12/17 20:00 97 20 107/54 (71) 07/12/17 18:16 98.3 80 18 116/59 (78) 94 I/O 07/12/17 07/12/17 07/12/17 07/13/17 07/13/17 07/13/17 07:00 15:00 23:00 07:00 15:00 23:00 Intake Total 0 ml 480 ml 120 ml Balance 0 ml 480 ml 120 ml Intake Oral 0 ml 480 ml Oral Supplement 120 ml # Voids 1 # Bowel Movements 2 Imaging Last Impressions Abdomen/Pelvis CT 07/13/17 0000 Signed Impressions: Service Date/Time: Thursday, July 13, 2017 08:21 - CONCLUSION: Large 11 cm right renal cyst. Large bolus of stool in the rectosigmoid without inflammatory changes in the pelvis Extensive degenerative changes in the lumbar spine Extensive vascular calcifications. Rogelio Steel MD FACR Abdomen X-Ray 07/12/17 0000 Signed Impressions: Service Date/Time: July 02:51 - CONCLUSION: 1. Nonobstructed bowel gas pattern. 2. 8 mm calcific densities just above the SI joint on the right. These are outside the renal shadow. Diagnostic considerations include ureteral calculi or calcified lymph nodes. Rosalio Li MD Objective Remarks GENERAL: This is a well-nourished, well-developed patient, in no apparent distress. SKIN: Cool and dry. ENT: Airway patent. NECK: Trachea midline. No JVD CARDIOVASCULAR: Regular rate and rhythm without murmurs, gallops, or rubs. RESPIRATORY: Clear to auscultation. Breath sounds equal bilaterally. No wheezes , rales, or rhonchi. GASTROINTESTINAL: Abdomen soft, non-tender, nondistended. No guarding. Hypoactive bowel sounds. MUSCULOSKELETAL: Extremities without clubbing, cyanosis, or edema. NEUROLOGICAL: Awake and alert. Motor and sensory grossly within normal limits. Normal speech. A/P Assessment and Plan 81-year-old male with past medical history of Alzheimer's dementia, CAD with stenting, kidney cysts, and BPH who is currently admitted to inpatient psychiatry. Reconsulted for constipation. Severe constipation -Patient is status post laxatives as well as Fleet Enema. + BM overnight -KUB completed on 07/12 reviewed, nonobstructed bowel gas pattern. 8 mm calcified density just above the SI joint on the right, outside of regional shadow. Diagnostic consideration could be urethral calculi or calcified lymph nodes according to radiologist report - Continue stool softener -Patient also denies any dysuria, or trouble urinating -CT of the abdomen completed on 07/13 revealed large 11 cm renal cyst, large bolus of stool in the rectosigmoid without inflammatory changes in the pelvis, degenerative changes in lumbar spine and extensive vascular calcifications. -Patient has been receiving stool softeners as well as laxatives and also required manual disimpaction -Complaints of pain and discomfort today with no BM, consult GI services for further recommendations, appreciate input. Renal cyst -Patient does have a history of renal cyst -CT of abdomen and pelvis completed on 07/13 revealing large 11 cm cyst on the right kidney with smaller peripelvic cyst -We will try and obtain records from [facility] to assess size of cyst -Consider nephrology consult for evaluation if cyst is larger or if unable to obtain records. Urinary incontinence -Episode of urinary incontinence when examined on 07/12 -He has been afebrile with no urinary complaints -Check UA culture and sensitivity if indicated, reminded nurse to please collect -CBC and a BMP, reminded nurse to please call lab for collection DVT prophylaxis-ambulation Discussed with patient and nurse. Bernardo Loaiza July 13, 2017 13:54
[2017-07-13] MEDS ORDERED: MINERAL OIL ENEMA 118 ML BTL RECTAL ONE (14:00)
[2017-07-13] MEDS: LACTULOSE SYRUP 20 GM/30 ML CUP PO SCH (14:38)
[2017-07-13] MEDS ORDERED: GLYCERIN ADULT 2 GM SUPP RECTAL PRN (17:30)
[2017-07-14 06:40] VITALS: BP 125/56; PULSE 69; RESP 15; TEMP 97.7; O2SAT 96
[2017-07-14] MEDS: REMOVE OLD PATCH T-DERMAL SCH (09:00)
[2017-07-14] MEDS: LACTULOSE SYRUP 20 GM/30 ML CUP PO SCH (09:00)
[2017-07-14] MEDS: ASCORBIC ACID 500 MG TAB PO SCH (09:00)
[2017-07-14] MEDS: NICOTINE 21 MG/24 HR PATCH T-DERMAL SCH (09:00)
[2017-07-14] MEDS: hydrALAZINE HCL 25 MG TAB PO SCH ×2 (09:00→21:16)
[2017-07-14] MEDS: DOCUSATE SODIUM 50 MG/SENNA 8.6 MG TAB PO SCH ×2 (09:00→21:16)
[2017-07-14 09:30] LABS: BASOPHIL % 0.5 % (0.0-2.0); EOSINOPHIL # 0.2 TH/MM3 (0-0.4); EOSINOPHIL % 2.4 % (0.0-4.0); HEMATOCRIT 38.3 % (39.0-51.0); HEMOGLOBIN 13.2 GM/DL (13.0-17.0); LYMPH % 9.8 % (9.0-44.0); LYMPHOCYTE # 0.9 TH/MM3 (1.0-4.8); MEAN CELL VOLUME 91.9 FL (80.0-100.0); MEAN CORPUSCULAR HEMOGLOBIN 31.7 PG (27.0-34.0); MEAN CORPUSCULAR HGB CONC 34.5 % (32.0-36.0); MEAN PLATELET VOLUME 6.9 FL (7.0-11.0); NEUT % 76.3 % (16.0-70.0); PLATELET COUNT 173 TH/MM3 (150-450); RED BLOOD COUNT 4.17 MIL/MM3 (4.50-5.90); RED CELL DISTRIBUTION WIDTH 13.7 % (11.6-17.2); WHITE BLOOD COUNT 9.2 TH/MM3 (4.0-11.0)
[2017-07-14] MEDS: CETIRIZINE HCL 10 MG TAB PO SCH (09:44)
[2017-07-14] MEDS: VALPROIC ACID SYRUP 250 MG/5 ML UDC PO SCH ×2 (09:44→21:17)
[2017-07-14] MEDS: QUEtiapine FUMARATE 25 MG TAB PO SCH ×2 (09:44→21:16)
[2017-07-14 09:56] LABS: ALBUMIN 3.1 GM/DL (3.4-5.0); AST (GOT) 40 U/L (15-37); BICARBONATE 24.4 MEQ/L (21.0-32.0); BLOOD UREA NITROGEN 27 MG/DL (7-18); CALCIUM 8.8 MG/DL (8.5-10.1); CHLORIDE 106 MEQ/L (98-107); CREATININE 1.31 MG/DL (0.60-1.30); GLOMERULAR FILTRATION RATE 53 ML/MIN (>89); SODIUM (NA) 140 MEQ/L (136-145)
[2017-07-14 09:58] LABS: GLUCOSE,RANDOM 96 MG/DL (74-106)
[2017-07-14 10:04] LABS: ALKALINE PHOSPHATASE 54 U/L (45-117); ALT (GPT) 21 U/L (12-78); TOTAL BILIRUBIN ADULT 1.3 MG/DL (0.2-1.0); TOTAL PROTEIN 7.2 GM/DL (6.4-8.2)
--- NOTE | 2017-07-14 11:50 | HHI.GIFU ---
Subjective Remarks Pt resting in bed Per RN pt did have a BM, diarrhea Pt denies any abdominal pain Does report rectal pain (Michell Hernandez) Objective Vitals I&O Vital Signs Date Time Temp Pulse Resp B/P (MAP) Pulse Ox O2 Delivery O2 Flow Rate FiO2 07/14/17 06:40 97.7 69 15 125/56 (79) 96 I/O 07/13/17 07/13/17 07/13/17 07/14/17 07/14/17 07/14/17 06:59 14:59 22:59 06:59 14:59 22:59 Intake Total 120 ml Balance 120 ml Oral Supplement 120 ml Laboratory Laboratory Tests Test 07/14/17 09:12 White Blood Count 9.2 Red Blood Count 4.17 Hemoglobin 13.2 Hematocrit 38.3 Mean Corpuscular Volume 91.9 Mean Corpuscular Hemoglobin 31.7 Mean Corpuscular Hemoglobin Concent 34.5 Red Cell Distribution Width 13.7 Platelet Count 173 Mean Platelet Volume 6.9 Neutrophils (%) (Auto) 76.3 Lymphocytes (%) (Auto) 9.8 Monocytes (%) (Auto) 11.0 Eosinophils (%) (Auto) 2.4 Basophils (%) (Auto) 0.5 Neutrophils # (Auto) 7.0 Lymphocytes # (Auto) 0.9 Monocytes # (Auto) 1.0 Eosinophils # (Auto) 0.2 Basophils # (Auto) 0.0 CBC Comment DIFF FINAL Differential Comment Blood Urea Nitrogen 27 Creatinine 1.31 Random Glucose 96 Total Protein 7.2 Albumin 3.1 Calcium Level 8.8 Alkaline Phosphatase 54 Aspartate Amino Transf (AST/SGOT) 40 Alanine Aminotransferase (ALT/SGPT) 21 Total Bilirubin 1.3 Sodium Level 140 Potassium Level 4.0 Chloride Level 106 Carbon Dioxide Level 24.4 Anion Gap 10 Estimat Glomerular Filtration Rate 53 Imaging Last Impressions Abdomen/Pelvis CT 07/13/17 0000 Signed Impressions: Service Date/Time: Thursday, July 13, 2017 08:21 - CONCLUSION: Large 11 cm right renal cyst. Large bolus of stool in the rectosigmoid without inflammatory changes in the pelvis Extensive degenerative changes in the lumbar spine Extensive vascular calcifications. Rogelio Steel MD FACR Abdomen X-Ray 07/12/17 0000 Signed Impressions: Service Date/Time: July 02:51 - CONCLUSION: 1. Nonobstructed bowel gas pattern. 2. 8 mm calcific densities just above the SI joint on the right. These are outside the renal shadow. Diagnostic considerations include ureteral calculi or calcified lymph nodes. Rosalio iL MD Physical Exam HEENT: Normocephalic; atraumatic CHEST: Even/unlabored CARDIAC: RRR ABDOMEN: Soft, nondistended, nontender; bowel sounds active EXTREMITIES: No clubbing, cyanosis, or edema. SKIN: Normal; no rash; no jaundice. FACULTY INSTRUCTOR: No focal deficits; alert and oriented times three. (Michell Hernandez) Assessment and Plan Plan Assessment: - Constipation- CT abdomen and pelvis and pelvis W/O IV contrast (07/13) --> Large 11 cm right renal cyst. Large bolus of stool in the rectosigmoid without inflammatory changes in the pelvis. Extensive degenerative changes in the lumbar spine. Extensive vascular calcifications. Unknown history of EGD and colonoscopy. (07/14) Pt unable to give good history. Per RN pt did have a BM, diarrhea. Pt had some rectal pain with BM Plan Continue with current bowel regimen Lidocaine topical for rectal pain GI will sign off, please reconsult as needed Patient has been seen and examined by myself and Dr. Covarrubias and this note is written on her behalf (Michell Hernandez) Physician Comments agree with above abdominal xray in am if not better colonoscopy with disimpaction (Evon Covarrubias MD) Michell Hernandez July 14, 2017 11:49 Evon Covarrubias MD July 14, 2017 15:50
--- NOTE | 2017-07-14 13:29 | HHI.PR ---
Subjective Remarks Follow-up visit for constipation and renal cyst. Spoke with nurse who reports patient's laxatives were held this morning as patient had diarrhea. No reports of copious amounts of stool. Nursing staff was not able to obtain records from [facility] regarding renal cyst history. Patient is seen and examined in bed and states he is "not doing good today". He continues to complain of rectal pain and burn. He denies any abdominal pain or discomfort. Denies any nausea, fever, chills. Objective Vitals Vital Signs Date Time Temp Pulse Resp B/P (MAP) Pulse Ox O2 Delivery O2 Flow Rate FiO2 07/14/17 06:40 97.7 69 15 125/56 (79) 96 I/O 07/13/17 07/13/17 07/13/17 07/14/17 07/14/17 07/14/17 07:00 15:00 23:00 07:00 15:00 23:00 Intake Total 120 ml Balance 120 ml Oral Supplement 120 ml Result Diagram: 07/14/17 0912 07/14/17 0912 Imaging Last Impressions Abdomen/Pelvis CT 07/13/17 0000 Signed Impressions: Service Date/Time: Thursday, July 13, 2017 08:21 - CONCLUSION: Large 11 cm right renal cyst. Large bolus of stool in the rectosigmoid without inflammatory changes in the pelvis Extensive degenerative changes in the lumbar spine Extensive vascular calcifications. Rogelio Steel MD FACR Abdomen X-Ray 07/12/17 0000 Signed Impressions: Service Date/Time: July 02:51 - CONCLUSION: 1. Nonobstructed bowel gas pattern. 2. 8 mm calcific densities just above the SI joint on the right. These are outside the renal shadow. Diagnostic considerations include ureteral calculi or calcified lymph nodes. Rosalio Li MD Objective Remarks GENERAL: This is a well-nourished, well-developed patient, in no apparent distress. SKIN: Cool and dry. ENT: Airway patent. NECK: Trachea midline. No JVD CARDIOVASCULAR: Regular rate and rhythm without murmurs, gallops, or rubs. RESPIRATORY: Clear to auscultation. Breath sounds equal bilaterally. No wheezes , rales, or rhonchi. GASTROINTESTINAL: Abdomen soft, non-tender, nondistended. No guarding. Active bowel sounds. MUSCULOSKELETAL: Extremities without clubbing, cyanosis, or edema. NEUROLOGICAL: Awake and alert. Motor and sensory grossly within normal limits. Normal speech. A/P Assessment and Plan 81-year-old male with past medical history of Alzheimer's dementia, CAD with stenting, kidney cysts, and BPH who is currently admitted to inpatient psychiatry. Reconsulted for constipation. Severe constipation Rectal pain -Patient is status post laxatives as well as Fleet Enema. + BM overnight -KUB completed on 07/12 reviewed, nonobstructed bowel gas pattern. 8 mm calcified density just above the SI joint on the right, outside of regional shadow. Diagnostic consideration could be urethral calculi or calcified lymph nodes according to radiologist report - Continue stool softener -Patient also denies any dysuria, or trouble urinating -CT of the abdomen completed on 07/13 revealed large 11 cm renal cyst, large bolus of stool in the rectosigmoid without inflammatory changes in the pelvis, degenerative changes in lumbar spine and extensive vascular calcifications. -Bowel regimen on board, mineral oil enema yesterday -Patient was seen and evaluated by GI services, greatly appreciate assistance. -Patient with + BM although suspect there may be more stool. Discussed with nursing staff regarding medications, please administer. Discussed with -Hydrocortisone, and glycerin suppositories. Lidocaine ointment every 8 hours. - Check KUB in the AM Renal cyst -Patient does have a history of renal cyst -CT of abdomen and pelvis completed on 07/13 revealing large 11 cm cyst on the right kidney with smaller peripelvic cyst -Unable to obtain records, patient is a poor historian. -Consult nephrology for further evaluation regarding large renal cyst, greatly appreciate assistance. Urinary incontinence -Episode of urinary incontinence when examined on 07/12 -He has been afebrile with no urinary complaints -Check UA culture and sensitivity if indicated, discussed with staff to attempt and collect UA. -CBC with no leukocytosis, increase in neutrophils to 76.3, patient afebrile. GARETT on CKD -Creatinine has stayed consistent around 1.36 since his admission to inpatient psychiatry -Do not see any noted history of chronic kidney disease although possible -BMP from 07/14 reviewed, creatinine 1.31, BUN 27, GFR 53 -Nephrology consulted to evaluate large renal cyst. Hyperbilirubinemia Elevated AST -CMP from 07/14 reviewed, total bilirubin 1.3, AST 40. Both of these are minimally elevated -Prior labs from July 04 within normal limits, patient is on valproic acid, last level 07/04 29. This is a potential of elevating liver enzyme -Patient with no nausea, vomiting, or abdominal pain. Continue monitoring. -Consider liver gallbladder ultrasound if worsening DVT prophylaxis-ambulation Discussed with patient and nurse. Bernardo Loaiza July 14, 2017 13:29
--- NOTE | 2017-07-14 13:39 | HHI.PYPN ---
Subjective Remarks Patient was seen and case discussed with nursing. Patient is concerned with his rectal impaction and secondary pain. Continues to be followed by the medical team. He remains confused and disorganized. Alert and oriented 1. Exit seeking behavior is not as prominent as last week Mental Status Examination Appearance: Appropriate, Other (long finger nails) Consciousness: Alert Orientation: Person Motor Activity: Normal gait Speech: Unremarkable Language: Adequate Fund of Knowledge: Inadequate Attention and Concentration: Easily Distracted Memory: Impaired Mood: Other ("Not good") Affect: Other (Restricted) Thought Process & Associations: Disorganized, Other (concrete) Thought Content: Preoccupations (with constipation) Hallucination Type: None Delusion Type: None Suicidal Ideation: No Suicidal Plan: No Suicidal Intention: No Homicidal Ideation: No Homicidal Plan: No Homicidal Intention: No Insight: Poor Judgment: Poor Results Labs Test 07/14/17 09:12 White Blood Count 9.2 TH/MM3 Red Blood Count 4.17 MIL/MM3 Hemoglobin 13.2 GM/DL Hematocrit 38.3 % Mean Corpuscular Volume 91.9 FL Mean Corpuscular Hemoglobin 31.7 PG Mean Corpuscular Hemoglobin Concent 34.5 % Red Cell Distribution Width 13.7 % Platelet Count 173 TH/MM3 Mean Platelet Volume 6.9 FL Neutrophils (%) (Auto) 76.3 % Lymphocytes (%) (Auto) 9.8 % Monocytes (%) (Auto) 11.0 % Eosinophils (%) (Auto) 2.4 % Basophils (%) (Auto) 0.5 % Neutrophils # (Auto) 7.0 TH/MM3 Lymphocytes # (Auto) 0.9 TH/MM3 Monocytes # (Auto) 1.0 TH/MM3 Eosinophils # (Auto) 0.2 TH/MM3 Basophils # (Auto) 0.0 TH/MM3 CBC Comment DIFF FINAL Differential Comment Blood Urea Nitrogen 27 MG/DL Creatinine 1.31 MG/DL Random Glucose 96 MG/DL Total Protein 7.2 GM/DL Albumin 3.1 GM/DL Calcium Level 8.8 MG/DL Alkaline Phosphatase 54 U/L Aspartate Amino Transf (AST/SGOT) 40 U/L Alanine Aminotransferase (ALT/SGPT) 21 U/L Total Bilirubin 1.3 MG/DL Sodium Level 140 MEQ/L Potassium Level 4.0 MEQ/L Chloride Level 106 MEQ/L Carbon Dioxide Level 24.4 MEQ/L Anion Gap 10 MEQ/L Estimat Glomerular Filtration Rate 53 ML/MIN Vitals/IOs Vital Signs Date Time Temp Pulse Resp B/P (MAP) Pulse Ox O2 Delivery O2 Flow Rate FiO2 07/14/17 06:40 97.7 69 15 125/56 (79) 96 Assessment & Plan Problem List: (1) Alzheimer's dementia with behavioral disturbance ICD Codes: G30.9 - Alzheimer's disease, unspecified; F02.81 - Dementia in other diseases classified elsewhere with behavioral disturbance Assessment & Plan Continue current treatment plan Justification for Cont. Inpt. Patient would decompensate in a less restrictive setting Kenyon Rivera DO July 14, 2017 13:39
[2017-07-14] MEDS: LIDOCAINE HCL 5% OINT 37 GM TUBE TOPICAL PRN (15:41)
[2017-07-14 18:20] VITALS: BP 122/60; PULSE 66; RESP 18; TEMP 98.8; O2SAT 99
[2017-07-15] MEDS: LIDOCAINE HCL 5% OINT 37 GM TUBE TOPICAL PRN (02:39)
[2017-07-15 05:37] VITALS: BP 88/54; PULSE 73; RESP 16; TEMP 97.5; O2SAT 96
[2017-07-15 06:37] VITALS: BP 122/79; PULSE 78
--- NOTE | 2017-07-15 08:21 | PD.CONS ---
HPI Service Urology Consult Requested By Reason for Consult Renal cyst Primary Care Physician Unknown Diagnosis: History of Present Illness 81yo male with large right renal cyst. CT scan identified large right simple renal cyst, no masses, no internal septations. Left kidney with peripelvic cysts noted. Review of Systems ROS Limitations: Clinical Condition Past Family Social History Past Medical History cad- s/p stent - 3.5yrs ago kidney cyst BPH Alzeimers dx - diagnosed 2 yrs ago and had episodes of leaving home skin cancer - sq cell Past Surgical History skin cancer removal cardiac stents Reported Medications Reported Meds & Active Scripts Active Reported Depakote DR (Divalproex Sodium) 500 Mg Tabdr 500 Mg PO BID Tylenol (Acetaminophen) 325 Mg Tab 325 Mg PO Q6H PRN Duoneb (Ipratropium-Albuterol Neb) 0.5-2.5 Mg/3 Ml Neb 1 Nebule INH Q8HR NEB Vitamin C (Ascorbic Acid) 250 Mg Tab 500 Mg PO DAILY Hydralazine HCl 25 Mg Tablet 25 Mg PO BID [Abh Gel ] 1 Applic BID Ativan (Lorazepam) 1 Mg Tab 1 Mg PO BID PRN Zyrtec (Cetirizine HCl) 10 Mg Tablet 1 Tab-Cap PO DAILY Allergies: Coded Allergies: Penicillins (Verified Allergy, Unknown, UNKNOWN , 06/18/17) Sulfa (Sulfonamide Antibiotics) (Verified Allergy, Unknown, UNKNOWN , ) codeine (Verified Allergy, Unknown, UNKNOWN, 06/18/17) Active Ordered Medications Current Medications Medications (Trade) Dose Ordered Sig/Dipak Route Start Time Stop Time Status Last Admin (Ativan) 0.5 mg Q12H PRN PO 06/19/17 10:00 Future hold 07/02/17 10:05 (Ativan Inj) 0.5 mg Q12H PRN IM 06/19/17 10:00 Future hold 06/27/17 15:44 (Tylenol) 650 mg Q4H PRN PO 06/19/17 10:00 (Milk Of Magnesia Liq) 30 ml DAILY PRN PO 06/19/17 10:00 07/11/17 16:00 (Mag-Al Plus Susp Liq) 30 ml Q6H PRN PO 06/19/17 10:00 (Habitrol 21 Mg Patch.24 Hr) 1 patch DAILY T-DERMAL 06/19/17 10:00 Miscellaneous Information 1 DAILY T-DERMAL 06/20/17 10:00 (ZyrTEC) 10 mg DAILY PO 06/21/17 09:00 07/14/17 09:44 (Apresoline) 25 mg BID PO 06/20/17 11:45 07/14/17 21:16 (Vitamin C) 500 mg DAILY PO 06/20/17 12:15 07/14/17 09:00 (Depakene Liq) 500 mg BID PO 06/25/17 12:15 07/14/17 21:17 (SEROquel) 12.5 mg BID PO 07/04/17 21:00 07/14/17 21:16 (Dulcolax Supp) 10 mg DAILY PRN RECTAL 07/11/17 11:45 07/11/17 11:55 (Kimberly-Colace) 1 tab BID PO 07/12/17 09:00 07/14/17 21:16 (Lactulose Liq) 30 ml DAILY PO 07/13/17 14:00 07/13/17 14:38 (Proctofoam Hc Rectal Foam) 1 applic Q8H PRN RECTAL 07/13/17 13:30 (Xylocaine 5% Oint) 1 applic Q8H PRN TOPICAL 07/13/17 17:30 07/15/17 02:39 (Glycerin Adult Supp) 2 gm BID PRN RECTAL 07/13/17 17:30 Family History brother- late 80s from metatstatic cancer Social History social drinker while young quit smoking 40yrs ago no drugs Physical Exam Vital Signs Date Time Temp Pulse Resp B/P (MAP) Pulse Ox O2 Delivery O2 Flow Rate FiO2 07/15/17 06:37 78 122/79 (93) 07/15/17 05:37 97.5 73 16 88/54 (65) 96 07/14/17 18:20 98.8 66 18 122/60 (80) 99 Lab results reviewed: Yes Laboratory Tests Test 07/14/17 09:12 White Blood Count 9.2 Red Blood Count 4.17 Hemoglobin 13.2 Hematocrit 38.3 Mean Corpuscular Volume 91.9 Mean Corpuscular Hemoglobin 31.7 Mean Corpuscular Hemoglobin Concent 34.5 Red Cell Distribution Width 13.7 Platelet Count 173 Mean Platelet Volume 6.9 Neutrophils (%) (Auto) 76.3 Lymphocytes (%) (Auto) 9.8 Monocytes (%) (Auto) 11.0 Eosinophils (%) (Auto) 2.4 Basophils (%) (Auto) 0.5 Neutrophils # (Auto) 7.0 Lymphocytes # (Auto) 0.9 Monocytes # (Auto) 1.0 Eosinophils # (Auto) 0.2 Basophils # (Auto) 0.0 CBC Comment DIFF FINAL Differential Comment Blood Urea Nitrogen 27 Creatinine 1.31 Random Glucose 96 Total Protein 7.2 Albumin 3.1 Calcium Level 8.8 Alkaline Phosphatase 54 Aspartate Amino Transf (AST/SGOT) 40 Alanine Aminotransferase (ALT/SGPT) 21 Total Bilirubin 1.3 Sodium Level 140 Potassium Level 4.0 Chloride Level 106 Carbon Dioxide Level 24.4 Anion Gap 10 Estimat Glomerular Filtration Rate 53 Result Diagram: 07/14/17 0912 07/14/17 0912 Personally reviewed images: Yes Imaging Last Impressions Abdomen/Pelvis CT 07/13/17 0000 Signed Impressions: Service Date/Time: Thursday, July 13, 2017 08:21 - CONCLUSION: Large 11 cm right renal cyst. Large bolus of stool in the rectosigmoid without inflammatory changes in the pelvis Extensive degenerative changes in the lumbar spine Extensive vascular calcifications. Rogelio Steel MD FACR Abdomen X-Ray 07/12/17 0000 Signed Impressions: Service Date/Time: July 02:51 - CONCLUSION: 1. Nonobstructed bowel gas pattern. 2. 8 mm calcific densities just above the SI joint on the right. These are outside the renal shadow. Diagnostic considerations include ureteral calculi or calcified lymph nodes. Rosalio Li MD Assessment and Plan Problem List: (1) Medical clearance for psychiatric admission ICD Code: Z00.8 - Encounter for other general examination Status: Acute Assessment and Plan -CT scan images reviewed -Large simple renal cyst. No surgical intervention indicated, no evidence of solid mass or malignancy -Patient may follow-up as outpatient with Urology after medically stable and discharged Ramiro Christie MD July 15, 2017 08:21
[2017-07-15] MEDS: QUEtiapine FUMARATE 25 MG TAB PO SCH ×2 (08:45→21:00)
[2017-07-15] MEDS: LACTULOSE SYRUP 20 GM/30 ML CUP PO SCH (08:46)
[2017-07-15] MEDS: VALPROIC ACID SYRUP 250 MG/5 ML UDC PO SCH ×2 (08:46→21:00)
[2017-07-15] MEDS: hydrALAZINE HCL 25 MG TAB PO SCH ×2 (08:46→21:00)
[2017-07-15] MEDS: DOCUSATE SODIUM 50 MG/SENNA 8.6 MG TAB PO SCH ×2 (08:46→21:00)
[2017-07-15] MEDS: CETIRIZINE HCL 10 MG TAB PO SCH (08:46)
[2017-07-15] MEDS: ASCORBIC ACID 500 MG TAB PO SCH (08:46)
[2017-07-15] MEDS: REMOVE OLD PATCH T-DERMAL SCH (09:00)
[2017-07-15] MEDS: NICOTINE 21 MG/24 HR PATCH T-DERMAL SCH (09:00)
--- NOTE | 2017-07-15 09:51 | HHI.GIFU ---
Subjective Remarks Pt walking around the room Point to his butt and says there is pain all over Pt does report trying the cream but is unsure if it is working 6 BMs documented in chart Unable to provide much of a history Objective Vitals I&O Vital Signs Date Time Temp Pulse Resp B/P (MAP) Pulse Ox O2 Delivery O2 Flow Rate FiO2 07/15/17 06:37 78 122/79 (93) 07/15/17 05:37 97.5 73 16 88/54 (65) 96 07/14/17 18:20 98.8 66 18 122/60 (80) 99 I/O 07/14/17 07/14/17 07/14/17 07/15/17 07/15/17 07/15/17 07:00 15:00 23:00 07:00 15:00 23:00 Intake Total 240 ml Balance 240 ml Intake Oral 240 ml # Voids 5 # Bowel Movements 6 Imaging Last Impressions Abdomen/Pelvis CT 07/13/17 0000 Signed Impressions: Service Date/Time: Thursday, July 13, 2017 08:21 - CONCLUSION: Large 11 cm right renal cyst. Large bolus of stool in the rectosigmoid without inflammatory changes in the pelvis Extensive degenerative changes in the lumbar spine Extensive vascular calcifications. Rogelio Steel MD FACR Abdomen X-Ray 07/12/17 0000 Signed Impressions: Service Date/Time: July 02:51 - CONCLUSION: 1. Nonobstructed bowel gas pattern. 2. 8 mm calcific densities just above the SI joint on the right. These are outside the renal shadow. Diagnostic considerations include ureteral calculi or calcified lymph nodes. Rosalio Li MD Physical Exam HEENT: Normocephalic; atraumatic CHEST: Even/unlabored CARDIAC: RRR ABDOMEN: Soft, nondistended, nontender; bowel sounds active EXTREMITIES: No clubbing, cyanosis, or edema. SKIN: Normal; no rash; no jaundice. CONTACT CENTER SPECIALIST: Awake Assessment and Plan Plan Assessment: - Constipation- CT abdomen and pelvis and pelvis W/O IV contrast (07/13) --> Large 11 cm right renal cyst. Large bolus of stool in the rectosigmoid without inflammatory changes in the pelvis. Extensive degenerative changes in the lumbar spine. Extensive vascular calcifications. Unknown history of EGD and colonoscopy. (5/5) Pt unable to give good history. Per RN pt did have a BM, diarrhea. Pt had some rectal pain with BM (5/6) Pt complaining of pain to his butt today. States tried the medicine and is unsure if it helped. 6 BMs documented in pts chart. Denies abdominal pain, abdomen is nontender on exam. Plan Flex sigmoidoscopy tomorrow Obtain consent Clear liquids today NPO after MN SSE x 2 in AM Continue rectal Lidocaine Bowel regimen as needed Further recommendations based on clinical course and findings of above Patient has been seen and examined by myself and Dr. Covarrubias and this note is written on her behalf Michell Hernandez July 15, 2017 09:51
--- NOTE | 2017-07-15 12:34 | HHI.PYPN ---
Subjective Remarks Patient was seen and case discussed with nursing. Patient is seclusive the bed. No longer exit seeking. Compliant with medications without difficulty. Continues to be bothered by an obstruction. He has a sigmoidoscopy scheduled tomorrow. Alert and oriented 1 Mental Status Examination Appearance: Appropriate, Other (long finger nails) Consciousness: Alert Orientation: Person Motor Activity: Normal gait Speech: Unremarkable Language: Adequate Fund of Knowledge: Inadequate Attention and Concentration: Easily Distracted Memory: Impaired Mood: Other ("Not good") Affect: Other (Restricted) Thought Process & Associations: Disorganized, Other (concrete) Thought Content: Preoccupations (with constipation) Hallucination Type: None Delusion Type: None Suicidal Ideation: No Suicidal Plan: No Suicidal Intention: No Homicidal Ideation: No Homicidal Plan: No Homicidal Intention: No Insight: Poor Judgment: Poor Results Vitals/IOs Vital Signs Date Time Temp Pulse Resp B/P (MAP) Pulse Ox O2 Delivery O2 Flow Rate FiO2 07/15/17 06:37 78 122/79 (93) 07/15/17 05:37 97.5 16 96 Assessment & Plan Problem List: (1) Alzheimer's dementia with behavioral disturbance ICD Codes: G30.9 - Alzheimer's disease, unspecified; F02.81 - Dementia in other diseases classified elsewhere with behavioral disturbance Assessment & Plan Continue current treatment plan Justification for Cont. Inpt. Patient would decompensate in a less restrictive setting Kenyon Rivera DO July 15, 2017 12:34
--- NOTE | 2017-07-15 12:56 | HHI.PR ---
Subjective Remarks Follow-up visit for severe constipation. Spoke with nurse who reports patient has been having small amounts of liquid stool. Patient seen and examined in his room his is lying on his stomach today. He continues to complain of rectal pain , states "pain in my butt". He denies any fevers, chill, n/v or abdominal pain. He voices no other complaint. Objective Vitals Vital Signs Date Time Temp Pulse Resp B/P (MAP) Pulse Ox O2 Delivery O2 Flow Rate FiO2 07/15/17 06:37 78 122/79 (93) 07/15/17 05:37 97.5 73 16 88/54 (65) 96 07/14/17 18:20 98.8 66 18 122/60 (80) 99 I/O 07/14/17 07/14/17 07/14/17 07/15/17 07/15/17 07/15/17 07:00 15:00 23:00 07:00 15:00 23:00 Intake Total 240 ml Balance 240 ml Intake Oral 240 ml # Voids 5 # Bowel Movements 6 Result Diagram: 07/14/17 0912 07/14/17 0912 Imaging Last Impressions Abdomen X-Ray 07/15/17 0600 Signed Impressions: Service Date/Time: Saturday, July 15, 2017 11:29 - CONCLUSION: Nonspecific bowel gas pattern. Scattered gas in nondilated colon and small bowel. Jose R Massey MD Abdomen/Pelvis CT 07/13/17 0000 Signed Impressions: Service Date/Time: Thursday, July 13, 2017 08:21 - CONCLUSION: Large 11 cm right renal cyst. Large bolus of stool in the rectosigmoid without inflammatory changes in the pelvis Extensive degenerative changes in the lumbar spine Extensive vascular calcifications. Rogelio Steel MD FACR Objective Remarks GENERAL: This is a well-nourished, well-developed patient, in no apparent distress. SKIN: Cool and dry. ENT: Airway patent. NECK: Trachea midline. No JVD CARDIOVASCULAR: Regular rate and rhythm without murmurs, gallops, or rubs. RESPIRATORY: Clear to auscultation. Breath sounds equal bilaterally. No wheezes , rales, or rhonchi. GASTROINTESTINAL: Abdomen soft, non-tender, nondistended. No guarding. Active bowel sounds. MUSCULOSKELETAL: Extremities without clubbing, cyanosis, or edema. NEUROLOGICAL: Awake and alert. Motor and sensory grossly within normal limits. Normal speech. A/P Assessment and Plan 81-year-old male with past medical history of Alzheimer's dementia, CAD with stenting, kidney cysts, and BPH who is currently admitted to inpatient psychiatry. Reconsulted for constipation. Severe constipation Rectal pain -KUB completed on 07/12 reviewed, nonobstructed bowel gas pattern. 8 mm calcified density just above the SI joint on the right, outside of regional shadow. Diagnostic consideration could be urethral calculi or calcified lymph nodes according to radiologist report - Continue stool softener -Patient also denies any dysuria, or trouble urinating -CT of the abdomen completed on 07/13 revealed large 11 cm renal cyst, large bolus of stool in the rectosigmoid without inflammatory changes in the pelvis, degenerative changes in lumbar spine and extensive vascular calcifications. -Patient was seen and evaluated by GI services, greatly appreciate assistance. -Hydrocortisone, and glycerin suppositories. Lidocaine ointment every 8 hours. - KUB this AM reviewed, Nonspecific bowel gas pattern. Scattered gas in nondilated colon and small bowel. Continues to complain of severe rectal pain. - GI plan for flexible sigmoidoscopy tomorrow, discussed with nurse, will need to let GI nurse know 's number to obtain consent if this is planned. Renal cyst -Patient does have a history of renal cyst -CT of abdomen and pelvis completed on 07/13 revealing large 11 cm cyst on the right kidney with smaller peripelvic cyst -Unable to obtain records, patient is a poor historian. -Urology has evaluated, no malignancy or solid mass noted, recommendations to followup as outpatient once medically cleared, appreciate recommendations. Urinary incontinence -Episode of urinary incontinence when examined on 07/12 -He has been afebrile with no urinary complaints -Check UA culture and sensitivity if indicated, discussed with staff to attempt and collect UA. -CBC with no leukocytosis, increase in neutrophils to 76.3, patient afebrile. GARETT on CKD -Creatinine has stayed consistent around 1.36 since his admission to inpatient psychiatry -Do not see any noted history of chronic kidney disease although possible -BMP from 07/14 reviewed, creatinine 1.31, BUN 27, GFR 53 Hyperbilirubinemia Elevated AST -CMP from 07/14 reviewed, total bilirubin 1.3, AST 40. Both of these are minimally elevated -Prior labs from July 04 within normal limits, patient is on valproic acid, last level 07/04 29. This is a potential of elevating liver enzyme -Patient with no nausea, vomiting, or abdominal pain. Continue monitoring. -Consider liver gallbladder ultrasound if worsening DVT prophylaxis-ambulation Discussed with patient and nurse. Bernardo Loaiza July 15, 2017 12:56
--- NOTE | 2017-07-15 13:13 | RADRPT ---
EXAM DATE/TIME: 07/15/2017 11:29 [facility] COMPARISON: ABDOMEN KUB ONLY, July 12, 2017, 2:51. INDICATIONS : Evaluate obstruction, abdominal discomfort. MEDICAL HISTORY : Unobtainable. SURGICAL HISTORY : Unobtainable. ENCOUNTER: Subsequent ACUITY: 4 - 6 days PAIN SCORE: Non-responsive. LOCATION: Abdomen. FINDINGS: 2 supine AP views of the abdomen. Scattered gas in the colon and small bowel. Phleboliths in the righ t side of the pelvis. Degenerative findings of the lumbar spine. CONCLUSION: Nonspecific bowel gas pattern. Scattered gas in nondilated colon and small bowel. Jose R Massey MD on July 15, 2017 at 13:10 Board Certified Radiologist. This report was verified electronically.
[2017-07-15 17:48] VITALS: BP 128/68; PULSE 74; RESP 16; TEMP 97.4; O2SAT 96
[2017-07-16 06:26] VITALS: BP 92/51; PULSE 62; RESP 16; TEMP 97.3; O2SAT 95
[2017-07-16 07:04] LABS: ALBUMIN 3.2 GM/DL (3.4-5.0); DIRECT BILIRUBIN ADULT 0.3 MG/DL (0.0-0.2)
[2017-07-16 07:06] LABS: INDIRECT BILIRUBIN 0.6 MG/DL (0.0-0.8); TOTAL BILIRUBIN ADULT 0.9 MG/DL (0.2-1.0); TOTAL PROTEIN 7.5 GM/DL (6.4-8.2)
[2017-07-16] MEDS ORDERED: PILL SPLITTER OTHER PRN (07:30)
[2017-07-16] MEDS: LACTULOSE SYRUP 20 GM/30 ML CUP PO SCH (08:40)
[2017-07-16] MEDS: hydrALAZINE HCL 25 MG TAB PO SCH ×2 (08:40→21:00)
[2017-07-16] MEDS: DOCUSATE SODIUM 50 MG/SENNA 8.6 MG TAB PO SCH ×2 (08:40→21:00)
[2017-07-16] MEDS: VALPROIC ACID SYRUP 250 MG/5 ML UDC PO SCH ×2 (08:40→21:21)
[2017-07-16] MEDS: CETIRIZINE HCL 10 MG TAB PO SCH (08:41)
[2017-07-16] MEDS: REMOVE OLD PATCH T-DERMAL SCH (08:41)
[2017-07-16] MEDS: QUEtiapine FUMARATE 25 MG TAB PO SCH ×2 (08:41→21:21)
[2017-07-16] MEDS: ASCORBIC ACID 500 MG TAB PO SCH (08:41)
[2017-07-16] MEDS: NICOTINE 21 MG/24 HR PATCH T-DERMAL SCH (08:42)
--- NOTE | 2017-07-16 09:47 | HHI.PR ---
Subjective Remarks Follow-up for severe constipation. Spoke with nurse reports patient refused soapsuds enemas this morning in preparation for sigmoidoscopy. Patient is also had several episodes of incontinence of urine, and seems to be obsessed with using the bathroom. Patient is seen and examined in his room in no acute distress. Today he is sitting up in bed and actually ambulating to the bathroom. He denies any abdominal pain but still complains of rectal pain. No pain with urination, fevers, chills, nausea or vomiting. Objective Vitals Vital Signs Date Time Temp Pulse Resp B/P (MAP) Pulse Ox O2 Delivery O2 Flow Rate FiO2 07/16/17 06:26 97.3 62 16 92/51 (65) 95 07/15/17 17:48 97.4 74 16 128/68 (88) 96 Result Diagram: 07/14/17 0912 07/14/17 0912 Imaging Last Impressions Abdomen X-Ray 07/15/17 0600 Signed Impressions: Service Date/Time: Saturday, July 15, 2017 11:29 - CONCLUSION: Nonspecific bowel gas pattern. Scattered gas in nondilated colon and small bowel. JoseR Massey MD Abdomen/Pelvis CT 07/13/17 0000 Signed Impressions: Service Date/Time: Thursday, July 13, 2017 08:21 - CONCLUSION: Large 11 cm right renal cyst. Large bolus of stool in the rectosigmoid without inflammatory changes in the pelvis Extensive degenerative changes in the lumbar spine Extensive vascular calcifications. Rogelio Steel MD FACR Objective Remarks GENERAL: This is a well-nourished, well-developed patient, in no apparent distress. SKIN: Cool and dry. ENT: Airway patent. NECK: Trachea midline. No JVD CARDIOVASCULAR: Regular rate and rhythm without murmurs, gallops, or rubs. RESPIRATORY: Clear to auscultation. Breath sounds equal bilaterally. No wheezes , rales, or rhonchi. GASTROINTESTINAL: Abdomen soft, non-tender, nondistended. No guarding. Active bowel sounds. MUSCULOSKELETAL: Extremities without clubbing, cyanosis, or edema. NEUROLOGICAL: Awake and alert. Motor and sensory grossly within normal limits. Normal speech. A/P Assessment and Plan 81-year-old male with past medical history of Alzheimer's dementia, CAD with stenting, kidney cysts, and BPH who is currently admitted to inpatient psychiatry. Reconsulted for constipation. Severe constipation Rectal pain -KUB completed on 07/12 reviewed, nonobstructed bowel gas pattern. 8 mm calcified density just above the SI joint on the right, outside of regional shadow. Diagnostic consideration could be urethral calculi or calcified lymph nodes according to radiologist report - Continue stool softener -Patient also denies any dysuria, or trouble urinating -CT of the abdomen completed on 07/13 revealed large 11 cm renal cyst, large bolus of stool in the rectosigmoid without inflammatory changes in the pelvis, degenerative changes in lumbar spine and extensive vascular calcifications. -Patient was seen and evaluated by GI services, greatly appreciate assistance. -Hydrocortisone, and glycerin suppositories. Lidocaine ointment every 8 hours. - KUB 07/15, Nonspecific bowel gas pattern. Scattered gas in nondilated colon and small bowel. Continues to complain of severe rectal pain. - sigmoidoscopy today. Renal cyst -Patient does have a history of renal cyst -CT of abdomen and pelvis completed on 07/13 revealing large 11 cm cyst on the right kidney with smaller peripelvic cyst -Unable to obtain records, patient is a poor historian. -Urology has evaluated, no malignancy or solid mass noted, recommendations to followup as outpatient once medically cleared, appreciate recommendations. Urinary incontinence -Continues to have episodes of incontinence, previously was continent -He has been afebrile with no urinary complaints -Order for UA, nursing to try and obtain clean catch and if needed straight cath. -CBC with no leukocytosis, increase in neutrophils to 76.3, patient afebrile. GARETT on CKD -Creatinine has stayed consistent around 1.36 since his admission to inpatient psychiatry -Do not see any noted history of chronic kidney disease although possible -BMP from 07/14 reviewed, creatinine 1.31, BUN 27, GFR 53 HTN, controlled - BP in the mornings has been on the low side. Decrease hydralazine to 12.5 mg twice daily -Continue monitoring vitals and adjusting accordingly Hyperbilirubinemia Elevated AST -CMP from 07/14 reviewed, total bilirubin 1.3, AST 40. Both of these are minimally elevated -Prior labs from July 04 within normal limits, patient is on valproic acid, last level 07/04 30. This is a potential of elevating liver enzyme -LFTs checked this morning, within normal limits with the exception of direct bili which is minimally elevated at 0.3 -Patient with no nausea, vomiting, or abdominal pain. DVT prophylaxis-ambulation Discussed with patient and nurse. Bernardo Loaiza July 16, 2017 09:47
--- NOTE | 2017-07-16 11:17 | GIPROC ---
[facility] [address] [facility]. [facility] [place], [address] FLEXIBLE SIGMOIDOSCOPY PROCEDURE REPORT EXAM DATE: 07/16/2017 PATIENT NAME: Yajaira Barnes MR #: [id number] BIRTHDATE: 1935 ORDER #: [id number] ATTENDING: Yesenia Schwab MD WAGON DRILLER: Tommy Wagoner and Jneise Cuellar STATUS: inpatient INDICATIONS: The patient is a 81 yr old male here for a flexible sigmoidoscopy due to hematochezia and abdominal pain in the left lower quadrant PROCEDURE PERFORMED: Flexible Sigmoidoscopy with biopsy MEDICATIONS: None and Per Anesthesia. ESTIMATED BLOOD LOSS: None CONSENT: The patient understands the risks and benefits of the procedure and understands that these risks include, but are not limited to: sedation, allergic reaction, infection, perforation and/or bleeding. Alternative means of evaluation and treatment include, among others: physical exam, x-rays, and/or surgical intervention. The patient elects to proceed with this endoscopic procedure. medical equipment was checked for proper function. Hand hygiene and appropriate measures for infection prevention was taken. After the risks, benefits and alternatives of the procedure were thoroughly explained, Informed consent was verified, confirmed and timeout was successfully executed by the treatment team. A digital rectal exam revealed external hemorrhoids The Pentax [id number] endoscope was introduced through the anus and advanced to the sigmoid colon. The prep was good. The instrument was then slowly withdrawn as the colon was fully examined. COLON FINDINGS: Multiple bleeding, shallow, irregular shaped and clean-based ulcers ranging between 3-7mm in size were found in the rectum. Biopsies were taken at edge of the ulcers and around the ulcers. Retroflexed views revealed internal hemorrhoid The scope was then completely withdrawn from the patient and the procedure terminated. ADVERSE EVENTS: There were no complications. IMPRESSIONS: 1. Multiple ulcers ranging between 3-7mm in size were found in the rectum; biopsies were taken 2. Retroflexed views revealed internal hemorrhoid 3. Revealed external hemorrhoids RECOMMENDATIONS: 1. Await biopsy results 2. Fiber rich diet RECALL: Return As need for Flexible Sigmoidoscopy Yesenia Schwab MD eSigned: Yesenia Schwab MD 07/16/2017 11:17 AM cc:
[2017-07-16] MEDS ORDERED: METOPROLOL TARTRATE 25 MG TAB PO PRN (11:45)
[2017-07-16] MEDS ORDERED: CHLORHEXIDINE GLUCONATE 2 % 1 PACK (2 CLOTHS) TOPICAL PRN (11:45)
[2017-07-16] MEDS ORDERED: INSULIN HUMAN REGULAR 1,000 UNITS/10 ML VIAL SQ PRN (11:45)
[2017-07-16] MEDS ORDERED: SODIUM CHLORID 0.9% 500 ML IV PRN (11:45)
[2017-07-16] MEDS ORDERED: LACTATED RINGER'S 1000 ML IV PRN (11:45)
[2017-07-16] MEDS ORDERED: POVIDONE IODINE 5% (ANTISEPSIS KIT) 4 APPLICATIONS EACH NARE PRN (11:45)
[2017-07-16] MEDS ORDERED: PROPOFOL 200 MG/20 ML AMP IV ONE (12:00)
[2017-07-16] MEDS ORDERED: LIDOCAINE HCL 1% PF 5 ML SYRINGE OTHER ONE (12:00)
--- NOTE | 2017-07-16 14:32 | HHI.PYPN ---
Subjective Remarks Patient seen for follow up, chart reviewed. Discussion nursing staff reported the patient the compliant with medications for the most part, refusing enemas yesterday and was scheduled for colonoscopy this morning. Patient was seen after procedure this morning noted B, cooperative. Patient continues to report feeling "not good" and headed straight to the restroom for bowel movement. Nursing staff reported that the patient did eat after study was noted to be in better mood has not been perseverative on exiting the unit. Review of Systems Except as stated in HPI: all other systems reviewed are Neg Mental Status Examination Appearance: Appropriate, Other (long finger nails) Consciousness: Alert Orientation: Person Motor Activity: Normal gait Speech: Unremarkable Language: Adequate Fund of Knowledge: Inadequate Attention and Concentration: Easily Distracted Memory: Impaired Mood: Other ("Not good") Affect: Other (Restricted) Thought Process & Associations: Other (concrete) Thought Content: Other Hallucination Type: None Delusion Type: None Suicidal Ideation: No Suicidal Plan: No Suicidal Intention: No Homicidal Ideation: No Homicidal Plan: No Homicidal Intention: No Insight: Poor Judgment: Poor Results Labs Labs reviewed Test 07/16/17 06:15 Total Bilirubin 0.9 MG/DL Direct Bilirubin 0.3 MG/DL Indirect Bilirubin 0.6 MG/DL Aspartate Amino Transf (AST/SGOT) 30 U/L Alanine Aminotransferase (ALT/SGPT) 26 U/L Alkaline Phosphatase 58 U/L Total Protein 7.5 GM/DL Albumin 3.2 GM/DL Vitals/IOs Vital Signs Date Time Temp Pulse Resp B/P (MAP) Pulse Ox O2 Delivery O2 Flow Rate FiO2 07/16/17 11:25 98.2 54 14 121/77 (92) 98 Room Air Intake and Output 07/16/17 07/16/17 07/17/17 08:00 16:00 00:00 Intake Total 340 ml Balance 340 ml Assessment & Plan Problem List: (1) Alzheimer's dementia with behavioral disturbance ICD Codes: G30.9 - Alzheimer's disease, unspecified; F02.81 - Dementia in other diseases classified elsewhere with behavioral disturbance Assessment & Plan Patient recently had a colonoscopy pending results. Patient able to have meal, ambulating, denies any physical complaints at this time. Patient continues with neurocognitive deficits secondary to dementia. Patient has not been preservative on exits. Continue current treatment. Continue monitor with behavior. Discharge planning in progress. Justification for Cont. Inpt. At risk for further decompensation if at lower level of care. Discharge Planning To be determined. Jaya Jim MD July 16, 2017 14:32
[2017-07-16 18:00] VITALS: BP 131/61; PULSE 76; RESP 18; TEMP 97.6; O2SAT 96
[2017-07-16] MEDS: LIDOCAINE HCL 5% OINT 37 GM TUBE TOPICAL PRN (21:25)
[2017-07-17 04:00] VITALS: BP 107/51; PULSE 52; RESP 18; TEMP 97.7; O2SAT 94
[2017-07-17] MEDS: NICOTINE 21 MG/24 HR PATCH T-DERMAL SCH (09:00)
[2017-07-17] MEDS: REMOVE OLD PATCH T-DERMAL SCH (09:00)
[2017-07-17] MEDS: hydrALAZINE HCL 25 MG TAB PO SCH ×2 (09:00→21:00)
[2017-07-17] MEDS: DOCUSATE SODIUM 50 MG/SENNA 8.6 MG TAB PO SCH ×2 (09:57→21:00)
[2017-07-17] MEDS: QUEtiapine FUMARATE 25 MG TAB PO SCH ×2 (09:57→21:01)
[2017-07-17] MEDS: VALPROIC ACID SYRUP 250 MG/5 ML UDC PO SCH ×2 (09:58→21:00)
[2017-07-17] MEDS: LACTULOSE SYRUP 20 GM/30 ML CUP PO SCH (09:58)
[2017-07-17] MEDS: ASCORBIC ACID 500 MG TAB PO SCH (09:58)
[2017-07-17] MEDS: CETIRIZINE HCL 10 MG TAB PO SCH (09:58)
--- NOTE | 2017-07-17 14:00 | HHI.PYPN ---
Subjective Remarks Patient seen for follow up; chart reviewed. Discussion with nursing staff reported patient reported compliance with treatment, perseverative on going to the bathroom. Patient was found eating his lunch in the room but was interviewed after it his room where he is, cooperative. Patient states he is feeling "okay" reported less abdominal discomfort since after colonoscopy and continue to state that he does go frequently to the restroom but denying any significant pain at this time. Patient states that he is feeling better and would like to go home. Review of Systems Except as stated in HPI: all other systems reviewed are Neg Mental Status Examination Appearance: Appropriate, Other (long finger nails) Consciousness: Alert Orientation: Person Motor Activity: Normal gait Speech: Unremarkable Language: Adequate Fund of Knowledge: Inadequate Attention and Concentration: Easily Distracted Memory: Impaired Mood: Other ("Okay") Affect: Other (Restricted) Thought Process & Associations: Other (concrete) Thought Content: Other Hallucination Type: None Delusion Type: None Suicidal Ideation: No Suicidal Plan: No Suicidal Intention: No Homicidal Ideation: No Homicidal Plan: No Homicidal Intention: No Insight: Poor Judgment: Poor Results Vitals/IOs Vital Signs Date Time Temp Pulse Resp B/P (MAP) Pulse Ox O2 Delivery O2 Flow Rate FiO2 07/17/17 04:00 97.7 52 18 107/51 (69) 94 07/16/17 11:25 Room Air Intake and Output 07/17/17 07/17/17 07/18/17 08:00 16:00 00:00 Intake Total 880 ml Balance 880 ml Assessment & Plan Problem List: (1) Alzheimer's dementia with behavioral disturbance ICD Codes: G30.9 - Alzheimer's disease, unspecified; F02.81 - Dementia in other diseases classified elsewhere with behavioral disturbance Assessment & Plan Patient reporting less discomfort noted to be ambulating and eating well. Patient has a compliant with treatment. Her patient asked about being discharged home but has not had any aggressive behavior or behavioral dyscontrol recently. Patient has been calm, cooperative with staff. Continue current treatment. Continue monitor mood and behavior. Discharge planning in progress. Justification for Cont. Inpt. At risk for further decompensation if at lower level of care Discharge Planning To be determined Jaya Jim MD July 17, 2017 14:00
--- NOTE | 2017-07-17 14:12 | HHI.GIFU ---
Subjective Remarks Pt sitting in day room Asking me to unlock the door because he wants to go home I asked him if he has pain and he says he wants to go home Per RN pt has not had a BM since procedure She states he was complaining of some burning earlier (Michell Hernandez) Objective Vitals I&O Vital Signs Date Time Temp Pulse Resp B/P (MAP) Pulse Ox O2 Delivery O2 Flow Rate FiO2 07/17/17 04:00 97.7 52 18 107/51 (69) 94 07/16/17 18:00 97.6 76 18 131/61 (84) 96 I/O 07/16/17 07/16/17 07/16/17 07/17/17 07/17/17 07/17/17 07:00 15:00 23:00 07:00 15:00 23:00 Intake Total 340 ml 600 ml 880 ml Balance 340 ml 600 ml 880 ml Intake Oral 240 ml 600 ml 880 ml Other 100 ml # Voids 3 3 # Bowel Movements 2 Imaging Last Impressions Abdomen X-Ray 07/15/17 0600 Signed Impressions: Service Date/Time: Saturday, July 15, 2017 11:29 - CONCLUSION: Nonspecific bowel gas pattern. Scattered gas in nondilated colon and small bowel. Jose R Massey MD Abdomen/Pelvis CT 07/13/17 0000 Signed Impressions: Service Date/Time: Thursday, July 13, 2017 08:21 - CONCLUSION: Large 11 cm right renal cyst. Large bolus of stool in the rectosigmoid without inflammatory changes in the pelvis Extensive degenerative changes in the lumbar spine Extensive vascular calcifications. Rogelio Steel MD FACR Physical Exam HEENT: Normocephalic; atraumatic CHEST: Even/unlabored CARDIAC: RRR ABDOMEN: Soft, nondistended, nontender; bowel sounds active EXTREMITIES: No clubbing, cyanosis, or edema. SKIN: Normal; no rash; no jaundice. EMPLOYMENT LAW SPECIALIST: Awake (Michell Hernandez) Assessment and Plan Plan Assessment: - Constipation- CT abdomen and pelvis and pelvis W/O IV contrast (07/13) --> Large 11 cm right renal cyst. Large bolus of stool in the rectosigmoid without inflammatory changes in the pelvis. Extensive degenerative changes in the lumbar spine. Extensive vascular calcifications. Unknown history of EGD and colonoscopy. (07/14) Pt unable to give good history. Per RN pt did have a BM, diarrhea. Pt had some rectal pain with BM (5/6) Pt complaining of pain to his butt today. States tried the medicine and is unsure if it helped. 6 BMs documented in pts chart. Denies abdominal pain, abdomen is nontender on exam. (07/17) S/P flex sigmoidoscopy --> Multiple ulcers ranging between 3-7 mm in size were found in the rectum, biopsies taken. Internal and external hemorrhoids. Pt not answering my questions today, states he wants to go home Spoke with RN states pt was complaining of some burning in his rectum earlier but seems to be comfortable now. No BM since procedure. Plan Continue good bowel regimen to prevent constipation Rectum biopsy pending GI will sign off, please reconsult as needed Have pt follow up with GI after discharge Patient has been seen and examined by myself and Dr. Schwab and this note is written on his behalf (Michell Hernandez) Physician Comments Agree with above, keep on bowel regimen and avoid constipation. Biopsies-p. Diet as tolerated. GI fu upon dc. Will sign off, thankrebekau (Yesenia Schwab MD) Michell Hernandez July 17, 2017 14:12 Yesenia Schwab MD July 17, 2017 17:22
--- NOTE | 2017-07-17 14:58 | EKG ---
Date Performed: 07/16/2017 Time Performed: 10:36:06 PTAGE: 81 years EKG: SINUS BRADYCARDIA BORDERLINE ECG NO PREVIOUS TRACING DOCTOR: Omar Ward Interpretating Date/Time 07/17/2017 14:57:02
--- NOTE | 2017-07-17 17:46 | HHI.PR ---
Subjective Remarks Follow-up for severe constipation. Patient seen and examined. Patient is poor historian. Does c/o burning chest pain with meals. +BM. Discussed with nursing staff, no acute issues noted. Patient is tolerating diet. No nausea or vomiting. Objective Vitals Vital Signs Date Time Temp Pulse Resp B/P (MAP) Pulse Ox O2 Delivery O2 Flow Rate FiO2 07/17/17 04:00 97.7 52 18 107/51 (69) 94 07/16/17 18:00 97.6 76 18 131/61 (84) 96 I/O 07/16/17 07/16/17 07/16/17 07/17/17 07/17/17 07/17/17 07:00 15:00 23:00 07:00 15:00 23:00 Intake Total 340 ml 600 ml 880 ml Balance 340 ml 600 ml 880 ml Intake Oral 240 ml 600 ml 880 ml Other 100 ml # Voids 3 3 # Bowel Movements 2 Result Diagram: 07/14/17 0912 07/14/17 0912 Imaging Last Impressions Abdomen X-Ray 07/15/17 0600 Signed Impressions: Service Date/Time: Saturday, July 15, 2017 11:29 - CONCLUSION: Nonspecific bowel gas pattern. Scattered gas in nondilated colon and small bowel. Jose R Massey MD Abdomen/Pelvis CT 07/13/17 0000 Signed Impressions: Service Date/Time: Thursday, July 13, 2017 08:21 - CONCLUSION: Large 11 cm right renal cyst. Large bolus of stool in the rectosigmoid without inflammatory changes in the pelvis Extensive degenerative changes in the lumbar spine Extensive vascular calcifications. Rogelio Steel MD FACR Objective Remarks GENERAL: This is a well-nourished, well-developed patient, in no apparent distress. Awake. Ambulating in unit. SKIN: Cool and dry. HEENT: NC/AT. EOMI. Sclera anicteric. No nasal bleeding or drainage. Airway patent. MMM. NECK: Trachea midline. CARDIOVASCULAR: Regular rate and rhythm without murmurs, gallops, or rubs. RESPIRATORY: Clear to auscultation. Breath sounds equal bilaterally. No wheezes , rales, or rhonchi. GASTROINTESTINAL: Abdomen soft, non-tender, nondistended. No guarding. Active bowel sounds. MUSCULOSKELETAL: Extremities without clubbing, cyanosis, or edema. NEUROLOGICAL: Awake and alert. Motor and sensory grossly within normal limits. Nonfocal. Normal speech. PSYCHIATRIC: Calm and cooperative with examination Medications and IVs Current Medications Medications (Trade) Dose Ordered Sig/Dipak Route Start Time Stop Time Status Last Admin (Ativan) 0.5 mg Q12H PRN PO 06/19/17 10:00 Future hold 07/02/17 10:05 (Ativan Inj) 0.5 mg Q12H PRN IM 06/19/17 10:00 Future hold 06/27/17 15:44 (Tylenol) 650 mg Q4H PRN PO 06/19/17 10:00 07/15/17 15:21 (Milk Of Magnesia Liq) 30 ml DAILY PRN PO 06/19/17 10:00 07/11/17 16:00 (Mag-Al Plus Susp Liq) 30 ml Q6H PRN PO 06/19/17 10:00 (Habitrol 21 Mg Patch.24 Hr) 1 patch DAILY T-DERMAL 06/19/17 10:00 Miscellaneous Information 1 DAILY T-DERMAL 06/20/17 10:00 (ZyrTEC) 10 mg DAILY PO 06/21/17 09:00 07/17/17 09:58 (Vitamin C) 500 mg DAILY PO 06/20/17 12:15 07/17/17 09:58 (Depakene Liq) 500 mg BID PO 06/25/17 12:15 07/17/17 09:58 (SEROquel) 12.5 mg BID PO 07/04/17 21:00 07/17/17 09:57 (Dulcolax Supp) 10 mg DAILY PRN RECTAL 07/11/17 11:45 07/11/17 11:55 (Kimberly-Colace) 1 tab BID PO 07/12/17 09:00 07/17/17 09:57 (Lactulose Liq) 30 ml DAILY PO 07/13/17 14:00 07/17/17 09:58 (Proctofoam Hc Rectal Foam) 1 applic Q8H PRN RECTAL 07/13/17 13:30 (Xylocaine 5% Oint) 1 applic Q8H PRN TOPICAL 07/13/17 17:30 07/16/17 21:25 (Glycerin Adult Supp) 2 gm BID PRN RECTAL 07/13/17 17:30 (Apresoline) 12.5 mg BID PO 07/16/17 09:00 (Pill Splitter) 1 ea UNSCH PRN OTHER 07/16/17 07:30 Lactated Ringer's 1,000 ml @ 30 mls/hr Q24H PRN IV 07/16/17 11:45 07/19/17 11:44 Sodium Chloride 500 ml @ 30 mls/hr [id number] PRN IV 07/16/17 11:45 07/19/17 11:44 (Lopressor) 25 mg FORESTRY TECHNICAL OFFICER PRN PO 07/16/17 11:45 07/19/17 11:44 (Betadine 5% Antisepsis Kit) 1 applic FORESTRY TECHNICAL OFFICER PRN EACH NARE 07/16/17 11:45 07/19/17 11:44 (Chlorhexidine 2% Cloth) 3 pack FORESTRY TECHNICAL OFFICER PRN TOPICAL 07/16/17 11:45 07/19/17 11:44 (NovoLIN R INJ) See Protocol Table ... FORESTRY TECHNICAL OFFICER PRN SQ 07/16/17 11:45 07/19/17 11:44 A/P Assessment and Plan 81-year-old male with past medical history of Alzheimer's dementia, CAD with stenting, kidney cysts, and BPH who is currently admitted to inpatient psychiatry. Reconsulted for constipation. Severe constipation Rectal pain s/p flexible sigmoidoscopy +ulcers. GI has signed off -KUB completed on 07/12 reviewed, nonobstructed bowel gas pattern. 8 mm calcified density just above the SI joint on the right, outside of regional shadow. Diagnostic consideration could be urethral calculi or calcified lymph nodes according to radiologist report -CT of the abdomen completed on 07/13 revealed large 11 cm renal cyst, large bolus of stool in the rectosigmoid without inflammatory changes in the pelvis, degenerative changes in lumbar spine and extensive vascular calcifications. -Continue stool softener. High fiber diet. -Hydrocortisone, and glycerin suppositories as needed. Lidocaine ointment every 8 hours. Suspected GERD, c/o burning chest pain -start Protonix 40mg daily -monitor Renal cyst -Patient does have a history of renal cyst -CT of abdomen and pelvis completed on 07/13 revealing large 11 cm cyst on the right kidney with smaller peripelvic cyst -Unable to obtain records, patient is a poor historian. -Urology has evaluated, no malignancy or solid mass noted, recommendations to followup as outpatient once medically cleared, appreciate recommendations. Urinary incontinence -Continues to have episodes of incontinence, previously was continent -He has been afebrile with no urinary complaints -Order for UA, nursing to try and obtain clean catch and if needed straight cath. -CBC with no leukocytosis, increase in neutrophils to 76.3, patient afebrile. ?GARETT on suspected CKD, no labs for comparison -Creatinine has stayed consistent around 1.36 since his admission to inpatient psychiatry -renal US ordered. Obtain urine Na and Cr. -avoid nephrotoxic agents -continue to monitor kidney fxn HTN, controlled - BP in the mornings has been on the low side. Decrease hydralazine to 12.5 mg twice daily -Continue monitoring vitals and adjusting accordingly Hyperbilirubinemia Elevated AST -CMP from 07/14 reviewed, total bilirubin 1.3, AST 40. Both of these are minimally elevated -Prior labs from July 04 within normal limits, patient is on valproic acid, last level 07/04 29. This is a potential of elevating liver enzyme -LFTs checked this morning, within normal limits with the exception of direct bili which is minimally elevated at 0.3 -Patient with no nausea, vomiting, or abdominal pain. DVT prophylaxis-ambulation Discussed with patient and nurse. Rosemarie Munoz July 17, 2017 17:46
[2017-07-17] MEDS ORDERED: PANTOPRAZOLE SOD 40 MG DELAYED RELEASE TAB PO ONE (18:00)
[2017-07-18 06:25] VITALS: BP 147/74; PULSE 52; RESP 18; TEMP 97.9; O2SAT 97
[2017-07-18] MEDS: VALPROIC ACID SYRUP 250 MG/5 ML UDC PO SCH ×2 (08:32→21:00)
[2017-07-18] MEDS: CETIRIZINE HCL 10 MG TAB PO SCH (08:32)
[2017-07-18] MEDS: DOCUSATE SODIUM 50 MG/SENNA 8.6 MG TAB PO SCH ×2 (08:32→21:00)
[2017-07-18] MEDS: LACTULOSE SYRUP 20 GM/30 ML CUP PO SCH (08:32)
[2017-07-18] MEDS: ASCORBIC ACID 500 MG TAB PO SCH (08:32)
[2017-07-18] MEDS: PANTOPRAZOLE SOD 40 MG DELAYED RELEASE TAB PO SCH (08:32)
[2017-07-18] MEDS: hydrALAZINE HCL 25 MG TAB PO SCH ×2 (08:32→21:00)
[2017-07-18] MEDS: NICOTINE 21 MG/24 HR PATCH T-DERMAL SCH (08:39)
[2017-07-18] MEDS: REMOVE OLD PATCH T-DERMAL SCH (08:40)
[2017-07-18] MEDS: QUEtiapine FUMARATE 25 MG TAB PO SCH ×2 (09:00→21:00)
--- NOTE | 2017-07-18 09:22 | RADRPT ---
EXAM DATE/TIME: 07/18/2017 07:59 [facility] COMPARISON: CT ABDOMEN & PELVIS W/O CONTRAST, July 13, 2017, 8:21. INDICATIONS : Elevated labs. MEDICAL HISTORY : Alzheimer's Arthritis. Myocardial infarction. Hernia. Bilateral kidney cysts. SURGICAL HISTORY : Cholecystectomy. Shoulder and bicep surgery. ENCOUNTER: Initial ACUITY: 1 day PAIN SCORE: 2/10 LOCATION: Bilateral flank MEASUREMENTS: RIGHT KIDNEY: 12.4 x 7.1 x 6.1 cm LEFT KIDNEY: 13.6 x 7.6 x 7.8 cm FINDINGS: RIGHT KIDNEY: Redemonstration of a large 12.8 cm simple appearing anechoic cyst in the superior pole of the right k idney. Numerous parapelvic cysts measuring up to 4.4 cm. No definite hydronephrosis or renal calculus . LEFT KIDNEY: Redemonstration of numerous parapelvic cysts with the largest measuring 4.5 cm. There is a small simp le anechoic cyst near the superior pole. No definite hydronephrosis or renal calculus. BLADDER: Within normal limits given the degree of distension. Bilateral ureteral jets are present. CONCLUSION: 1. Numerous bilateral parapelvic cysts without definite hydronephrosis. 2. Bilateral renal cysts with a simple appearing large 12.8 cm cyst in the superior pole of the right kidney. Devang Vargas MD on July 18, 2017 at 9:15 Board Certified Radiologist. This report was verified electronically.
--- NOTE | 2017-07-18 13:18 | HHI.PYPN ---
Subjective Remarks Patient seen for follow up, chart reviewed. Discussion with nursing staff reported that the patient continues to be exit-seeking but no behavioral dyscontrol; compliant with medications today. Patient found lying asleep, but able to wake up for interview. Patient with limited interaction, smiling and occasional laughing but continues with baseline confusion. Patient denies any abdominal pain or discomfort, was not able to elaborate if having any further difficulty with bowel movement. Review of Systems Except as stated in HPI: all other systems reviewed are Neg Mental Status Examination Appearance: Appropriate, Other (long finger nails) Consciousness: Alert Orientation: Person Motor Activity: Normal gait Speech: Unremarkable Language: Adequate Fund of Knowledge: Inadequate Attention and Concentration: Easily Distracted Memory: Impaired Mood: Other ("Okay") Affect: Other (Restricted) Thought Process & Associations: Other (concrete) Thought Content: Other Hallucination Type: None Delusion Type: None Suicidal Ideation: No Suicidal Plan: No Suicidal Intention: No Homicidal Ideation: No Homicidal Plan: No Homicidal Intention: No Insight: Poor Judgment: Poor Results Vitals/IOs Vital Signs Date Time Temp Pulse Resp B/P (MAP) Pulse Ox O2 Delivery O2 Flow Rate FiO2 07/18/17 06:25 97.9 52 18 147/74 (98) 97 07/16/17 11:25 Room Air Assessment & Plan Problem List: (1) Alzheimer's dementia with behavioral disturbance ICD Codes: G30.9 - Alzheimer's disease, unspecified; F02.81 - Dementia in other diseases classified elsewhere with behavioral disturbance Assessment & Plan Patient continues with baseline confusion. He continues to be exit seeking but not aggressive or having any agitation; redirectible. Patient has been compliant and consistent with his medications for the past two days. Continue current treatment, continue to monitor mood and behavior. Discharge planning in progress. Justification for Cont. Inpt. At risk for further decompensation at lower level of care. Discharge Planning To be determined. Jaya Jim MD July 18, 2017 13:18
--- NOTE | 2017-07-18 14:21 | PD.TTN ---
Patient Problems 1. Discharge planning 2. Medication compliance 3. Knowledge deficit 4. Lack of coping skills Progress Toward Goals Provider Present: Dr. Jorge Jmi (07/18/17- Pt. remains the same.) Provider Input: 07/11/17 overall still the same more med compliant and in need of placement 07/09/17 pt overall the same, taking more meds, in need of placement 07/02/17 pt still not taking medications, still exit seeking 06/27/17 still adjusting meds trying to ensure patient takes medications- he is not willing to take any 06/25/17 patient is very combative and in need for locked unit in a intermediate card tender care facility, medications are adjusted and he has been in need for a lot of re-direction and ETO Nurse(s) Input: 07/11/17 he is taking medications and more cooperative and complaing of constipation 07/09/17 Josette: has been med compliant this morning cooperative and smiling and not exit seeking Psychiatric Counselors Present: Marely Kim LCSW (07/17/17-Pt. may go to [facility] today.) Psych Therapist Input: 07/11/17 is working with [facility] and possibly going there this week 07/09/17 pt in need of LTC placement, faxed referrals today to 15 facilities 07/02/17 is overwhelmed and helpless not knowing where to send him he was supposed to go to [place] but they denied him 06/27/17 patient is referred to [facility] , [address] is tomorrow and will come, he could go to [facility] or [place] 06/25/17 is working with [facility] and in hope for any placement, will fax referrals today for LTC usp and to [facility] that may be able to handle him, he remains demanding and trying to get out the door any chance he gets, he wants to return to work Group Spec/RT/OT/PUENTE Present: Mary Everett, PEGGY, KWAME Hubbard (07/17/17- Pt. is unable to tolerate most groups.) Group Spec/RT/OT/PUENTE Input: 07/11/17 pt still not tolerating groups 07/09/17 pt is unable to tolerate groups 07/02/17 pt is unable to tolerate groups 4/18/18 pt is unable to tolerate groups 4/16/18 pt is unable to tolerate groups Wes Sarmiento July 18, 2017 14:21
--- NOTE | 2017-07-18 15:39 | HHI.PR ---
Subjective Remarks Follow-up for severe constipation. Patient seen and examined. Patient resting comfortably. Patient with no complaints of burning chest pain since starting on Protonix. +BM. Discussed with nursing staff, no new medical issues noted. Objective Vitals Vital Signs Date Time Temp Pulse Resp B/P (MAP) Pulse Ox O2 Delivery O2 Flow Rate FiO2 07/18/17 06:25 97.9 52 18 147/74 (98) 97 I/O 07/17/17 07/17/17 07/17/17 07/18/17 07/18/17 07/18/17 07:00 15:00 23:00 07:00 15:00 23:00 Intake Total 880 ml 240 ml Balance 880 ml 240 ml Intake Oral 880 ml 240 ml # Voids 3 3 Result Diagram: 07/14/17 0912 07/14/17 0912 Imaging Last Impressions Renal Ultrasound 07/18/17 0000 Signed Impressions: Service Date/Time: Tuesday, July 18, 2017 07:59 - CONCLUSION: 1. Numerous bilateral parapelvic cysts without definite hydronephrosis. 2. Bilateral renal cysts with a simple appearing large 12.8 cm cyst in the superior pole of the right kidney. Devang Vargas MD Abdomen X-Ray 07/15/17 0600 Signed Impressions: Service Date/Time: Saturday, July 15, 2017 11:29 - CONCLUSION: Nonspecific bowel gas pattern. Scattered gas in nondilated colon and small bowel. Jose R Massey MD Abdomen/Pelvis CT 07/13/17 0000 Signed Impressions: Service Date/Time: Thursday, July 13, 2017 08:21 - CONCLUSION: Large 11 cm right renal cyst. Large bolus of stool in the rectosigmoid without inflammatory changes in the pelvis Extensive degenerative changes in the lumbar spine Extensive vascular calcifications. Rogelio Steel MD FACR Objective Remarks GENERAL: This is a well-nourished, well-developed elderly male patient, in no apparent distress. SKIN: Cool and dry. HEENT: NC/AT. EOMI. Sclera anicteric. No nasal bleeding or drainage. Airway patent. MMM. NECK: Trachea midline. CARDIOVASCULAR: Regular rate and rhythm without murmurs, gallops, or rubs. RESPIRATORY: Clear to auscultation. Breath sounds equal bilaterally. No wheezes , rales, or rhonchi. GASTROINTESTINAL: Abdomen soft, non-tender, nondistended. No guarding. Active bowel sounds. MUSCULOSKELETAL: Extremities without clubbing, cyanosis, or edema. NEUROLOGICAL: Awake and alert. Motor and sensory grossly within normal limits. Nonfocal. Normal speech. PSYCHIATRIC: Calm and cooperative Procedures FLEXIBLE SIGMOIDOSCOPY PROCEDURE REPORT EXAM DATE: 07/16/2017 PATIENT NAME: Yajaira Barnes MR #: [id number] BIRTHDATE: 1935 ORDER #: [id number] ATTENDING: Yesenia Schwab MD TOBACCO WEIGHER: Tommy Wagoner and Jenise Cuellar STATUS: inpatient INDICATIONS: The patient is a 81 yr old male here for a flexible sigmoidoscopy due to hematochezia and abdominal pain in the left lower quadrant PROCEDURE PERFORMED: Flexible Sigmoidoscopy with biopsy MEDICATIONS: None and Per Anesthesia. ESTIMATED BLOOD LOSS: None CONSENT: The patient understands the risks and benefits of the procedure and understands that these risks include, but are not limited to: sedation, allergic reaction, infection, perforation and/or bleeding. Alternative means of evaluation and treatment include, among others: physical exam, x-rays, and/or surgical intervention. The patient elects to proceed with this endoscopic procedure. medical equipment was checked for proper function. Hand hygiene and appropriate measures for infection prevention was taken. After the risks, benefits and alternatives of the procedure were thoroughly explained, Informed consent was verified, confirmed and timeout was successfully executed by the treatment team. A digital rectal exam revealed external hemorrhoids The Pentax [id number] endoscope was introduced through the anus and advanced to the sigmoid colon. The prep was good. The instrument was then slowly withdrawn as the colon was fully examined. COLON FINDINGS: Multiple bleeding, shallow, irregular shaped and clean-based ulcers ranging between 3-7mm in size were found in the rectum. Biopsies were taken at edge of the ulcers and around the ulcers. Retroflexed views revealed internal hemorrhoid The scope was then completely withdrawn from the patient and the procedure terminated. ADVERSE EVENTS: There were no complications. IMPRESSIONS: 1. Multiple ulcers ranging between 3-7mm in size were found in the rectum; biopsies were taken 2. Retroflexed views revealed internal hemorrhoid 3. Revealed external hemorrhoids RECOMMENDATIONS: 1. Await biopsy results 2. Fiber rich diet RECALL: Return As need for Flexible Sigmoidoscopy Medications and IVs Current Medications Medications (Trade) Dose Ordered Sig/Dipak Route Start Time Stop Time Status Last Admin (Ativan) 0.5 mg Q12H PRN PO 06/19/17 10:00 Future hold 07/02/17 10:05 (Ativan Inj) 0.5 mg Q12H PRN IM 06/19/17 10:00 Future hold 06/27/17 15:44 (Tylenol) 650 mg Q4H PRN PO 06/19/17 10:00 07/15/17 15:21 (Milk Of Magnesia Liq) 30 ml DAILY PRN PO 06/19/17 10:00 07/11/17 16:00 (Mag-Al Plus Susp Liq) 30 ml Q6H PRN PO 06/19/17 10:00 (Habitrol 21 Mg Patch.24 Hr) 1 patch DAILY T-DERMAL 06/19/17 10:00 Miscellaneous Information 1 DAILY T-DERMAL 06/20/17 10:00 (ZyrTEC) 10 mg DAILY PO 06/21/17 09:00 07/18/17 08:32 (Vitamin C) 500 mg DAILY PO 06/20/17 12:15 07/18/17 08:32 (Depakene Liq) 500 mg BID PO 06/25/17 12:15 07/18/17 08:32 (SEROquel) 12.5 mg BID PO 07/04/17 21:00 07/18/17 09:00 (Dulcolax Supp) 10 mg DAILY PRN RECTAL 07/11/17 11:45 07/11/17 11:55 (Kimberly-Colace) 1 tab BID PO 07/12/17 09:00 07/18/17 08:32 (Lactulose Liq) 30 ml DAILY PO 07/13/17 14:00 07/18/17 08:32 (Proctofoam Hc Rectal Foam) 1 applic Q8H PRN RECTAL 07/13/17 13:30 (Xylocaine 5% Oint) 1 applic Q8H PRN TOPICAL 07/13/17 17:30 07/16/17 21:25 (Glycerin Adult Supp) 2 gm BID PRN RECTAL 07/13/17 17:30 (Apresoline) 12.5 mg BID PO 07/16/17 09:00 07/18/17 08:32 (Pill Splitter) 1 ea UNSCH PRN OTHER 07/16/17 07:30 Lactated Ringer's 1,000 ml @ 30 mls/hr Q24H PRN IV 07/16/17 11:45 07/19/17 11:44 Sodium Chloride 500 ml @ 30 mls/hr [id number] PRN IV 07/16/17 11:45 07/19/17 11:44 (Lopressor) 25 mg STAFF ENGINEER PRN PO 07/16/17 11:45 07/19/17 11:44 (Betadine 5% Antisepsis Kit) 1 applic STAFF ENGINEER PRN EACH NARE 07/16/17 11:45 07/19/17 11:44 (Chlorhexidine 2% Cloth) 3 pack STAFF ENGINEER PRN TOPICAL 07/16/17 11:45 07/19/17 11:44 (NovoLIN R INJ) See Protocol Table ... STAFF ENGINEER PRN SQ 07/16/17 11:45 07/19/17 11:44 (Protonix) 40 mg DAILY PO 07/18/17 09:00 07/18/17 08:32 A/P Assessment and Plan 81-year-old male with past medical history of Alzheimer's dementia, CAD with stenting, kidney cysts, and BPH who is currently admitted to inpatient psychiatry. Reconsulted for constipation. Severe constipation Rectal pain s/p flexible sigmoidoscopy +ulcers. GI has signed off -KUB completed on 07/12 reviewed, nonobstructed bowel gas pattern. 8 mm calcified density just above the SI joint on the right, outside of regional shadow. Diagnostic consideration could be urethral calculi or calcified lymph nodes according to radiologist report -CT of the abdomen completed on 07/13 revealed large 11 cm renal cyst, large bolus of stool in the rectosigmoid without inflammatory changes in the pelvis, degenerative changes in lumbar spine and extensive vascular calcifications. -Continue stool softener. High fiber diet. -Hydrocortisone, and glycerin suppositories as needed. Lidocaine ointment every 8 hours. Suspected GERD, c/o burning chest pain, improved -continue Protonix 40mg daily -monitor Renal cyst -Patient does have a history of renal cyst -CT of abdomen and pelvis completed on 07/13 revealing large 11 cm cyst on the right kidney with smaller peripelvic cyst -Unable to obtain records, patient is a poor historian. -Urology has evaluated, no malignancy or solid mass noted, recommendations to followup as outpatient once medically cleared, appreciate recommendations. Urinary incontinence -Continues to have episodes of incontinence, previously was continent -He has been afebrile with no urinary complaints Suspected CKD, no labs for comparison -Creatinine has stayed consistent around 1.36 since his admission to inpatient psychiatry -multiple renal cysts on renal US -avoid nephrotoxic agents -continue to monitor kidney fxn as indicated HTN, controlled -continue on Hydralazine 12.5mg BID -Continue monitoring vitals and adjusting accordingly Hyperbilirubinemia Transaminitis, resolved -Patient with no nausea, vomiting, or abdominal pain -monitor as indicated DVT prophylaxis-ambulation Discussed with patient and nurse Patient appears stable from hospitalist standpoint. [facility] will sign off. Please reconsult if needed. Rosemarie Munoz July 18, 2017 15:39
[2017-07-18 18:06] VITALS: BP 146/65; PULSE 59; RESP 17; TEMP 97.3
[2017-07-19 05:48] VITALS: BP 105/52; PULSE 55; RESP 17; TEMP 97.5; O2SAT 97
[2017-07-19 08:34] VITALS: BP 118/67; PULSE 66; O2SAT 98
[2017-07-19] MEDS: VALPROIC ACID SYRUP 250 MG/5 ML UDC PO SCH ×2 (08:54→21:00)
[2017-07-19] MEDS: hydrALAZINE HCL 25 MG TAB PO SCH ×2 (08:54→21:00)
[2017-07-19] MEDS: LACTULOSE SYRUP 20 GM/30 ML CUP PO SCH (08:55)
[2017-07-19] MEDS: QUEtiapine FUMARATE 25 MG TAB PO SCH ×2 (08:55→21:00)
[2017-07-19] MEDS: CETIRIZINE HCL 10 MG TAB PO SCH (08:55)
[2017-07-19] MEDS: NICOTINE 21 MG/24 HR PATCH T-DERMAL SCH (08:55)
[2017-07-19] MEDS: REMOVE OLD PATCH T-DERMAL SCH (08:55)
[2017-07-19] MEDS: DOCUSATE SODIUM 50 MG/SENNA 8.6 MG TAB PO SCH ×2 (08:55→21:00)
[2017-07-19] MEDS: PANTOPRAZOLE SOD 40 MG DELAYED RELEASE TAB PO SCH (08:55)
[2017-07-19] MEDS ORDERED: SERO25TA PO (13:22)
[2017-07-19] MEDS ORDERED: HYDR-3799 PO (13:22)
[2017-07-19] MEDS ORDERED: PANT40TA3 PO (13:22)
[2017-07-19] MEDS ORDERED: PERI PO (13:22)
[2017-07-19] MEDS ORDERED: CETI-1 PO (13:22)
[2017-07-19] MEDS ORDERED: VALP250UDC PO (13:22)
[2017-07-19] MEDS ORDERED: Lactulose Liq PO (13:22)
--- NOTE | 2017-07-19 13:23 | HHI.DS ---
Psychiatry Discharge Summary Inpatient Psychiatric care?: Yes Advance Directive: No Reason Not Provided: Patient is confused Mental Health AdvanceDirective: No Health Care Proxy: Yes Admission Admission Date Jun 19, 2017 at 09:05 Admission Diagnosis: (1) Alzheimer's dementia with behavioral disturbance ICD Code: G30.9 - Alzheimer's disease, unspecified; F02.81 - Dementia in other diseases classified elsewhere with behavioral disturbance Brief History Patient is a 81 y/o [place] man, , domiciled in an assisted living facility, with past psychiatric history of dementia, one prior psychiatric admission, no prior suicide attempts or self injurious behavior, past medical history of CAD and [place] who was brought in under Jones Act due to aggressive behavior with others at the facility with reports that patient tried climbing out of windows at risk to himself and constantly tries to go outdoors in the context of refusing medications which patient was admitted to the inpatient psychiatry unit for further evaluation and management. Patient was found attempting to exit the unit, requiring ETO and moved to higher acuity unit due to behavioral dyscontrol. Patient found to be alert and oriented to person only , noted to be exit seeking and requiring redirection. On my evaluation the patient is oppositional, Refused to talk. Tobacco Use In Past 30 Days: No Tobacco Past 30 Days Alcohol Use: Never Results Blood Pressure 118 / 67 Vital Signs Date Time Temp Pulse Resp B/P (MAP) Pulse Ox O2 Delivery O2 Flow Rate FiO2 07/19/17 08:34 66 118/67 (84) 98 07/19/17 05:48 97.5 17 07/16/17 11:25 Room Air Laboratory Results Test 06/22/17 08:01 07/04/17 08:35 Cholesterol Level 137 MG/DL (120-200) HDL Cholesterol 38.2 MG/DL (40.0-60.0) Hemoglobin A1c 4.8 % (4.3-6.0) LDL Cholesterol 77 MG/DL (0-99) Triglycerides Level 109 MG/DL (42-150) Valproic Acid (Depakene) Level 30 MCG/ML (50-100) Imaging Last Impressions Renal Ultrasound 07/18/17 0000 Signed Impressions: Service Date/Time: Tuesday, July 18, 2017 07:59 - CONCLUSION: 1. Numerous bilateral parapelvic cysts without definite hydronephrosis. 2. Bilateral renal cysts with a simple appearing large 12.8 cm cyst in the superior pole of the right kidney. Devang Vargas MD Abdomen X-Ray 07/15/17 0600 Signed Impressions: Service Date/Time: Saturday, July 15, 2017 11:29 - CONCLUSION: Nonspecific bowel gas pattern. Scattered gas in nondilated colon and small bowel. Jose R Massey MD Abdomen/Pelvis CT 07/13/17 0000 Signed Impressions: Service Date/Time: Thursday, July 13, 2017 08:21 - CONCLUSION: Large 11 cm right renal cyst. Large bolus of stool in the rectosigmoid without inflammatory changes in the pelvis Extensive degenerative changes in the lumbar spine Extensive vascular calcifications. Rogelio Steel MD FACR Medications Approp Antipsych med options 1 - Minimum of three failed multiple trials of monotherapy. 2 - Documented plan to taper to monotherapy due to previous use of multiple meds OR cross-taper in progress at D/C. 3 - Documentation of augmentation of Clozapine. 4 - Justification other than those listed in allowable values 1-3, document here : Discharge Pt Condition on Discharge: Stable Discharge Disposition: Discharge to SNF Discharge Instructions Diet Instructions: Heart Healthy Diet Activities you can perform: Regular-No Restrictions Scheduled Appointment: At Facility Mental Status Examination Appearance: Appropriate, Other (long finger nails) Consciousness: Alert Orientation: Person Motor Activity: Normal gait Speech: Unremarkable Language: Adequate Fund of Knowledge: Inadequate Attention and Concentration: Easily Distracted Memory: Impaired Mood: Other ("Okay") Affect: Other (Restricted) Thought Process & Associations: Other (concrete) Thought Content: Other Hallucination Type: None Delusion Type: None Suicidal Ideation: No Suicidal Plan: No Suicidal Intention: No Homicidal Ideation: No Homicidal Plan: No Homicidal Intention: No Insight: Poor Judgment: Poor Discharge/Advance Care Plan Health Problems: (1) Alzheimer's dementia with behavioral disturbance Goals to promote your health * To prevent worsening of your condition and complications * To maintain your health at the optimal level Directions to meet your goals Take your medications as prescribed Follow your dietary instruction Follow activity as directed Keep your appointments as scheduled Take your immunizations and boosters as scheduled If your symptoms worsen call your PCP, if no PCP go to Urgent Care Center or Emergency Room For 24/7 questions related to your inpatient stay or results of tests pending at discharge, please contact Dr. Jaya Jim at Smoking is Dangerous to Your Health. Avoid second hand smoking Jaya Jim MD July 19, 2017 13:23
--- NOTE | 2017-07-19 17:22 | HHI.PYPN ---
Subjective Remarks Patient seen for follow-up, chart reviewed. Discussion nursing staff reported the patient with no behavioral disturbances, at times exit seeking but redirectable. Patient was found sitting hospital bed noted become cooperative. Patient with very concrete responses denying any physical complaints at this time reporting feeling "okay" denying any abdominal discomfort or difficulty with bowel movement. Patient reports eating and drinking well. Patient continues with baseline confusion secondary to neurocognitive deficits. Review of Systems Except as stated in HPI: all other systems reviewed are Neg Mental Status Examination Appearance: Appropriate, Other (long finger nails) Consciousness: Alert Orientation: Person Motor Activity: Normal gait Speech: Unremarkable Language: Adequate Fund of Knowledge: Inadequate Attention and Concentration: Easily Distracted Memory: Impaired Mood: Other ("Okay") Affect: Other (Restricted) Thought Process & Associations: Other (concrete) Thought Content: Other Hallucination Type: None Delusion Type: None Suicidal Ideation: No Suicidal Plan: No Suicidal Intention: No Homicidal Ideation: No Homicidal Plan: No Homicidal Intention: No Insight: Poor Judgment: Poor Results Vitals/IOs Vital Signs Date Time Temp Pulse Resp B/P (MAP) Pulse Ox O2 Delivery O2 Flow Rate FiO2 07/19/17 08:34 66 118/67 (84) 98 07/19/17 05:48 97.5 17 07/16/17 11:25 Room Air Intake and Output 07/19/17 07/19/17 07/20/17 08:00 16:00 00:00 Intake Total 0 ml 240 ml Balance 0 ml 240 ml Assessment & Plan Problem List: (1) Alzheimer's dementia with behavioral disturbance ICD Codes: G30.9 - Alzheimer's disease, unspecified; F02.81 - Dementia in other diseases classified elsewhere with behavioral disturbance Assessment & Plan Patient improving the longer endorsing any difficulty with bowel movement or having abdominal discomfort. Continue current treatment. Continue to monitor mood and behavior. Discharge planning in progress. Justification for Cont. Inpt. At risk for further decompensation if at lower level of care. Discharge Planning Patient to be discharged to nursing facility. Jaya Jim MD July 19, 2017 17:22
[2017-07-20 05:24] VITALS: BP 131/65; PULSE 65; RESP 16; TEMP 97.6; O2SAT 95
[2017-07-20] MEDS: PANTOPRAZOLE SOD 40 MG DELAYED RELEASE TAB PO SCH (09:00)
[2017-07-20] MEDS: NICOTINE 21 MG/24 HR PATCH T-DERMAL SCH (09:00)
[2017-07-20] MEDS: CETIRIZINE HCL 10 MG TAB PO SCH (09:00)
[2017-07-20] MEDS: LACTULOSE SYRUP 20 GM/30 ML CUP PO SCH (09:00)
[2017-07-20] MEDS: VALPROIC ACID SYRUP 250 MG/5 ML UDC PO SCH (09:00)
[2017-07-20] MEDS: DOCUSATE SODIUM 50 MG/SENNA 8.6 MG TAB PO SCH (09:00)
[2017-07-20] MEDS: REMOVE OLD PATCH T-DERMAL SCH (09:00)
[2017-07-20] MEDS: hydrALAZINE HCL 25 MG TAB PO SCH (09:00)
[2017-07-20] MEDS: QUEtiapine FUMARATE 25 MG TAB PO SCH (09:00)
--- NOTE | 2017-07-20 11:41 | HHI.DS ---
Psychiatry Discharge Summary Inpatient Psychiatric care?: Yes Advance Directive: No Reason Not Provided: Patient is confused Mental Health AdvanceDirective: No Health Care Proxy: No Admission Admission Date Jun 19, 2017 at 09:05 Admission Diagnosis: (1) Alzheimer's dementia with behavioral disturbance ICD Code: G30.9 - Alzheimer's disease, unspecified; F02.81 - Dementia in other diseases classified elsewhere with behavioral disturbance Brief History Patient is a 81 y/o [place] man, , domiciled in an assisted living facility, with past psychiatric history of dementia, one prior psychiatric admission, no prior suicide attempts or self injurious behavior, past medical history of CAD and [place] who was brought in under [place] Act due to aggressive behavior with others at the facility with reports that patient tried climbing out of windows at risk to himself and constantly tries to go outdoors in the context of refusing medications which patient was admitted to the inpatient psychiatry unit for further evaluation and management. Patient was found attempting to exit the unit, requiring ETO and moved to higher acuity unit due to behavioral dyscontrol. Patient found to be alert and oriented to person only , noted to be exit seeking and requiring redirection. On my evaluation the patient is oppositional, Refused to talk. Tobacco Use In Past 30 Days: No Tobacco Past 30 Days Alcohol Use: Never Results Blood Pressure 131 / 65 Vital Signs Date Time Temp Pulse Resp B/P (MAP) Pulse Ox O2 Delivery O2 Flow Rate FiO2 07/20/17 05:24 97.6 65 16 131/65 (87) 95 07/16/17 11:25 Room Air Laboratory Results Test 06/22/17 08:01 07/04/17 08:35 Cholesterol Level 137 MG/DL (120-200) HDL Cholesterol 38.2 MG/DL (40.0-60.0) Hemoglobin A1c 4.8 % (4.3-6.0) LDL Cholesterol 77 MG/DL (0-99) Triglycerides Level 109 MG/DL (42-150) Valproic Acid (Depakene) Level 30 MCG/ML (50-100) Imaging Last Impressions Renal Ultrasound 07/18/17 0000 Signed Impressions: Service Date/Time: Tuesday, July 18, 2017 07:59 - CONCLUSION: 1. Numerous bilateral parapelvic cysts without definite hydronephrosis. 2. Bilateral renal cysts with a simple appearing large 12.8 cm cyst in the superior pole of the right kidney. Devang Vargas MD Abdomen X-Ray 07/15/17 0600 Signed Impressions: Service Date/Time: Saturday, July 15, 2017 11:29 - CONCLUSION: Nonspecific bowel gas pattern. Scattered gas in nondilated colon and small bowel. Jose R Massey MD Abdomen/Pelvis CT 07/13/17 0000 Signed Impressions: Service Date/Time: Thursday, July 13, 2017 08:21 - CONCLUSION: Large 11 cm right renal cyst. Large bolus of stool in the rectosigmoid without inflammatory changes in the pelvis Extensive degenerative changes in the lumbar spine Extensive vascular calcifications. Rogelio Steel MD FACR Medications Approp Antipsych med options 1 - Minimum of three failed multiple trials of monotherapy. 2 - Documented plan to taper to monotherapy due to previous use of multiple meds OR cross-taper in progress at D/C. 3 - Documentation of augmentation of Clozapine. 4 - Justification other than those listed in allowable values 1-3, document here : Discharge Pt Condition on Discharge: Stable Discharge Disposition: Discharge to SNF Discharge Instructions Diet Instructions: Heart Healthy Diet Activities you can perform: Regular-No Restrictions Scheduled Appointment: At Facility Mental Status Examination Appearance: Appropriate, Other (long finger nails) Consciousness: Alert Orientation: Person Motor Activity: Normal gait Speech: Unremarkable Language: Adequate Fund of Knowledge: Inadequate Attention and Concentration: Easily Distracted Memory: Impaired Mood: Other ("Okay") Affect: Other (Restricted) Thought Process & Associations: Other (concrete) Thought Content: Other Hallucination Type: None Delusion Type: None Suicidal Ideation: No Suicidal Plan: No Suicidal Intention: No Homicidal Ideation: No Homicidal Plan: No Homicidal Intention: No Insight: Poor Judgment: Poor Discharge/Advance Care Plan Health Problems: (1) Alzheimer's dementia with behavioral disturbance Goals to promote your health * To prevent worsening of your condition and complications * To maintain your health at the optimal level Directions to meet your goals Take your medications as prescribed Follow your dietary instruction Follow activity as directed Keep your appointments as scheduled Take your immunizations and boosters as scheduled If your symptoms worsen call your PCP, if no PCP go to Urgent Care Center or Emergency Room For 02/10 questions related to your inpatient stay or results of tests pending at discharge, please contact Dr. Jaya Jim at Smoking is Dangerous to Your Health. Avoid second hand smoking Jaya Jim MD July 20, 2017 11:41
== END 2017-07-20 10:30 | DRG 57 ==
LOC: NEPJ 15:53 → NEDA 06-19 09:05 → H260 06-19 10:50 → H250 06-19 18:51 → H270 06-20 21:18 → H250 06-22 19:35 → H260 06-27 14:21 → H250 07-01 20:02 → H260 07-03 09:33 → H250 07-05 14:00 → H260 07-13 12:00
PROVIDERS: ADMIT Student in an Organized Health Care Education/Training Program; ATTEND Student in an Organized Health Care Education/Training Program
PROC: 0DBP8ZX Excision of Rectum, Via Natural or Artificial Opening Endoscopic, Diagnostic (ICD-10-PCS; principal; 2017-07-16 11:05)
DX: G30.9 Alzheimer's disease, unspecified (principal); N17.9 Acute kidney failure, unspecified; F02.81 Dementia in other diseases classified elsewhere, unspecified severity, with behavioral disturbance; N28.1 Cyst of kidney, acquired; K62.6 Ulcer of anus and rectum; R17 Unspecified jaundice; I12.9 Hypertensive chronic kidney disease with stage 1 through stage 4 chronic kidney disease, or unspecified chronic kidney disease; N18.9 Chronic kidney disease, unspecified; I25.10 Atherosclerotic heart disease of native coronary artery without angina pectoris; Z95.5 Presence of coronary angioplasty implant and graft; Z85.828 Personal history of other malignant neoplasm of skin; Z91.14 Patient's other noncompliance with medication regimen; I25.2 Old myocardial infarction; N40.0 Benign prostatic hyperplasia without lower urinary tract symptoms; Z87.891 Personal history of nicotine dependence; Z91.83 Wandering in diseases classified elsewhere; H91.90 Unspecified hearing loss, unspecified ear; K64.4 Residual hemorrhoidal skin tags; K64.8 Other hemorrhoids; K59.00 Constipation, unspecified; M47.816 Spondylosis without myelopathy or radiculopathy, lumbar region; R32 Unspecified urinary incontinence; Z91.19 Patient's noncompliance with other medical treatment and regimen
CPT/HCPCS: 74018; 74176; 76775; 80048; 80053; 80061; 80076; 80164; 80307; 81001; 83036; 84443; 85025; 88305; 93005; 99285; J1200; J1630; J2060